=== PATIENT | female | born 1945 | race Caucasian/White ===

== ENCOUNTER 2016-07-21 20:14 | Inpatient (IN) | payer MEDICARE, BC ==
[2016-07-21] MEDS ORDERED: Lactated Ringers 1,000 ML IV ONE (21:11)
[2016-07-21] MEDS ORDERED: HYDROmorphone 1 MG/ML Syringe IVPUSH ONE (21:11)
[2016-07-21] MEDS ORDERED: Prochlorperazine 10 MG/2 ML SDV IVPUSH ONE (21:13)
[2016-07-21] MEDS: Sodium Chloride 0.9% 10 ML Syringe FLUSH PRN ×2 (21:26→23:13)
--- NOTE | 2016-07-21 21:31 | EDM.PDOC ---
ED HPI GENERAL MEDICAL PROBLEM - General Chief Complaint: Gastrointestinal Problem Stated Complaint: [facility] Time Seen by Provider: 07/21/16 21:02 Source of Information: Reports: Patient, Family, Old records, RN notes reviewed History Limitations: Reports: No limitations - History of Present Illness INITIAL COMMENTS - FREE TEXT/NARRATIVE: 70-year-old female presents emergency department a complaint of weakness, nausea vomiting and lightheadedness, she has a known history of pancreatic cancer status post surgery with chemotherapy and radiation now with recurrence of new primary that is malignant. She recently underwent a transhepatic portal venogram with vein stenting. This was done at the [facility] day of discharge [facility] was today while in route home approximately care home through she developed severe nausea and vomiting unable to keep any liquids down has increased in pain Treatments DOLL REPAIRER: Reports: Other (see below) Other Treatments DOLL REPAIRER: glucose Lower Abdomen Pain Score (Numeric/FACES): 4 Lower back Pain Score (Numeric/FACES): 5 - Related Data Allergies Allergy/AdvReac Type Severity Reaction Status Date / Time hydroxychloroquine Allergy Intermediate Hives Verified 07/21/16 20:42 diclofenac [Diclofenac] Allergy Rash Verified 07/21/16 20:42 irinotecan [From Camptosar] Allergy Difficulty Verified 07/21/16 20:42 Swallowing propoxyphene Allergy Cannot Verified 07/21/16 20:42 Remember codeine AdvReac Nausea Verified 07/21/16 20:42 Sulfa (Sulfonamide AdvReac Nausea Verified 07/21/16 20:42 Antibiotics) Home Meds: Home Meds Amitriptyline [Elavil] 25 mg PO BEDTIME 12/06/12 [History] Multivitamin/Iron/Folic Acid [Centrum Complete Multivit] 1 each PO DAILY [History] Simvastatin [Zocor] 20 mg PO BEDTIME 12/06/12 [History] predniSONE 5 mg PO DAILY 12/06/12 [History] Amylase/Lipase/Protease [Lyndsey LOVING 12,000 Units] 120,000 units PO TID 05/09/15 [ History] Hydrocodone/Acetaminophen [Hydrocodon-Acetaminophen 5-325] 1 tab PO Q6H PRN 03/12 [History] Acetaminophen 650 mg PO Q6H PRN 07/14/15 [History] Apixaban [Eliquis] 2.5 mg PO BID 07/14/15 [History] Calcium Citrate/Vitamin D3 [Calcium Citrate-Vit D3 Tablet] 1 tab PO BID [History] Metoprolol Tartrate [Lopressor] 12.5 mg PO BID 07/14/15 [History] Potassium Chloride [Klor-Con M20] 20 meq PO DAILY 07/14/15 [History] Prochlorperazine Maleate [Compazine] 10 mg PO Q6H PRN 07/14/15 [History] Furosemide [Furosemide] 40 mg PO DAILY 06/21/16 [History] Leflunomide [Leflunomide] 10 mg PO .Q48HR 06/21/16 [History] Nystatin [Nystatin] 1 cm TOP TID PRN 06/21/16 [History] Omeprazole [Omeprazole] 40 mg PO DAILY 06/21/16 [History] Ondansetron [Zofran] 8 mg PO Q12HR 06/21/16 [History] Amylase/Lipase/Protease [Lyndsey LOVING 24,000 Unit] 1 cap PO 07/21/16 [History] Past Medical History HEENT History: Reports: Impaired vision Other HEENT History: wears glasses Cardiovascular History: Reports: Arrhythmia, High cholesterol, Hypertension Gastrointestinal History: Reports: Chronic diarrhea, GERD, Hemorrhoids, Other ( see below) Other Gastrointestinal History: whipple 02/14/2015 [employer] History: Reports: Musculoskeletal History: Reports: Amputation, Arthritis, Back pain, chronic, Fracture, Fibromyalgia, Neck pain, chronic, Osteoarthritis, RA, Other (see below ) Other Musculoskeletal History: bunions removed, Hematologic History: Reports: Blood transfusion(s) Immunologic History: Reports: Immunosuppression Oncologic (Cancer) History: Reports: Pancreatic, Other (see below) Other Oncologic History: had 6 weeks of chemo June 2014, completed radiation December 31/2105;. Currently receiving Chemo although while at [place] has not received it. Dermatologic History: Reports: Other (see below) Other Dermatologic History: skin graft to abdomen - Infectious Disease History Infectious Disease History: Reports: Chicken pox, Measles Other Infectious Disease History: states currently being treated for C-diff - Past Surgical History Head Surgeries/Procedures: Reports: Shunt HEENT Surgical History: Reports: None, Other (see below) Other HEENT Surgeries/Procedures: right ear surgery Cardiovascular Surgical History: Reports: None GI Surgical History: Reports: Cholecystectomy, Colonoscopy, EGD, Other (see below) Other GI Surgeries/Procedures: Whipple 02/14/2015 in [place]; feeding tube Left abdomen,. 07/21/16 Transhepatic portal Venogram with poptal vein shunting. Female Surgical History: Reports: Hysterectomy Neurological Surgical History: Reports: Sacral Spine, Spinal fusion Musculoskeletal Surgical History: Reports: Other (see below) Other Musculoskeletal Surgeries/Procedures:: sacral spinous suspension, hammertoe, L foot talonvacular fusion, L proximal humerus fx, Low back disc surgery, Right foot 2nd toe amputation, Arthrodesis right foot, 1st metatarsophlangeal joint Oncologic Surgical History: Reports: Other (see below) Other Oncologic Surgeries/Procedures: Whipple 02/14/2015 Dermatological Surgical History: Reports: Skin biopsy Social & Family History - Family History Cardiac: Reports: Heart valve replacement, [place] Neurological: Reports: CVA Endocrine/Metabolic: Reports: Diabetes, type II Oncologic: Reports: Breast, Cervix, Other (see below) Other Oncologic Family History: throat cancer; skin cancer - Tobacco Use Smoking Status *Q: Never Smoker Second Hand Smoke Exposure: No - Caffeine Use Caffeine Use: Reports: Coffee - Alcohol Use Days Per Week of Alcohol Use: 0 - Recreational Drug Use Recreational Drug Use: No ED ROS GENERAL - Review of Systems Review Of Systems: See Below Constitutional: Reports: weakness HEENT: Reports: No symptoms Respiratory: Reports: No Symptoms Cardiovascular: Reports: No symptoms GI/Abdominal: Reports: Distension, Nausea, Vomiting Musculoskeletal: Reports: back pain Skin: Reports: no symptoms Neurological: Reports: No Symptoms ED EXAM, GENERAL - Physical Exam Exam: See Below Free Text/Narrative:: General: Elderly, emaciated female, mild distress secondary to pain, alert and oriented x3 HEENT: head is atraumatic normocephalic, eyes pupils equal round reactive to light, sclera clear no conjunctivitis appreciated. Ears tympanic membranes clear and comer landmarks and light reflex are present bilaterally canals are clear. Nose no septal deviation, nares are clear, no blood present. Mouth mucosa is moist and pink no erythema or exudate noted in soft palate, tongue is midline uvula is midline, dentures in place. Neck: Supple no thyromegaly no tracheal deviation. Nodes: Cervical nodes subclavicular nodes nontender no palpable lymphadenopathy noted. Lungs: clear to auscultation bilaterally with symmetrical respirations, no adventitious noise appreciated. CV: Irregularly irregular rate and rhythm S1 and S2 appreciated no murmurs rubs or gallops noted. Abdomen: Soft, nontender, no palpable masses or organomegaly appreciated, marked distention no guarding bowel sounds are present, since the abdominal skin graft in place Neuro: Cranial nerves II through XII grossly intact Skin: Warm and dry, intact Extremities: +2 pitting edema bilaterally Course - Vital Signs Last Recorded V/S: Last Vital Signs Temp 99.4 F 07/21/16 20:32 Pulse 120 H 07/22/16 00:15 Resp 16 07/22/16 00:15 BP 69/48 L 07/22/16 00:15 Pulse Ox 100 07/22/16 00:15 - Orders/Labs/Meds Orders: Active Orders 24 hr Category Date Time Status EKG Documentation Completion [RC] ASDIRECTED Care 07/21/16 22:33 Active Insert Feldman Catheter [Insert Urinary Catheter] [OM.PC] Care 07/21/16 23:46 Ordered Q24H Peripheral IV Care [RC] . DIRECTED Care 07/21/16 21:13 Active RT Aerosol Therapy [RC] ASDIRECTED Care 07/21/16 22:31 Active Urinary Catheter Assessment [RC] ASDIRECTED Care 07/21/16 23:46 Active Abdomen Pelvis wo Cont [CT] Stat Exams 07/21/16 22:33 Taken Cefepime [Maxipime] 1 gm Med 07/22/16 06:00 Ordered Sodium Chloride 0.9% [Normal Saline] 50 ml IV Q8HR Hydrocortisone Sod Succinate [Solu-CORTEF] Med 07/22/16 01:04 Once 100 mg IVPUSH ONETIME ONE Lactated Ringers [Ringers, Lactated] 1,000 ml Med 07/22/16 01:15 Ordered IV ASDIRECTED Potassium Chloride [KCL 20 MEQ in Water 100 ML] 20 meq Med 07/22/16 00:07 Active Premix Bag 2 bag IV ONETIME Sodium Chloride 0.9% [Saline Flush] Med 07/21/16 21:13 Active 10 ml FLUSH ASDIRECTED PRN Peripheral IV Insertion Adult [OM.PC] Urgent Oth 07/21/16 21:13 Ordered EKG 12 Lead [EK] Stat Ther 07/21/16 22:32 Ordered Medication Orders Hydrocortisone Sodium Succinate (Solu-Cortef) 100 mg IVPUSH ONETIME ONE Stop: 07/22/16 01:05 Potassium Chloride 20 meq/ (Premix) 100 mls @ 50 mls/hr IV ONETIME ONE Stop: 07/22/16 02:06 Last Admin: 07/22/16 00:31 Dose: 50 mls/hr Lactated Ringer's (Ringers, Lactated) 1,000 mls @ 999 mls/hr IV ASDIRECTED MARIA DEL ROSARIO Stop: 07/22/16 02:16 Cefepime HCl 1 gm/ Sodium (Chloride) 50 mls @ 100 mls/hr IV Q8HR MARIA DEL ROSARIO Sodium Chloride (Saline Flush) 10 ml FLUSH ASDIRECTED PRN PRN Reason: Keep Vein Open Last Admin: 07/21/16 23:13 Dose: 10 ml Admin: 07/21/16 21:26 Dose: 10 ml Labs: Laboratory Tests 07/21/16 07/21/16 07/21/16 Range/Units 21:39 21:39 23:37 WBC 23.0 H (4.5-11.0) K/uL RBC 3.37 (3.30-5.50) M/uL Hgb 12.6 D (12.0-15.0) g/dL Hct 36.1 (36.0-48.0) % MCV 107 H (80-98) fL MCH 37 H (27-31) pg MCHC 35 (32-36) % Plt Count 112 L (150-400) K/uL Neut % (Auto) 97 H (36-66) % Lymph % (Auto) 1 L (24-44) % [place] % (Auto) 2 (2-6) % Eos % (Auto) 0 L (2-4) % Baso % (Auto) 0 (0-1) % Sodium 141 (140-148) mmol/L Potassium 8.7 H* (3.6-5.2) mmol/L Chloride 102 (100-108) mmol/L Carbon Dioxide 23 (21-32) mmol/L Anion Gap 24.7 H (5.0-14.0) mmol/L BUN 11 (7-18) mg/dL Creatinine 1.3 H D (0.6-1.0) mg/dL Est Cr Clr Drug Dosing 34.39 mL/min Estimated GFR (MDRD) 40 L (>60) Glucose 105 (74-106) mg/dL Lactic Acid (0.4-2.0) mmol/L Calcium 0.7 L* (8.5-10.1) mg/dL Total Bilirubin 0.6 (0.2-1.0) mg/dL AST 51 H (15-37) U/L ALT 26 (12-78) U/L Alkaline Phosphatase 280 H (46-116) U/L Total Protein 5.0 L (6.4-8.2) g/dL Albumin 1.4 L (3.4-5.0) g/dL Globulin 3.6 H (2.3-3.5) g/dL Albumin/Globulin Ratio 0.4 L (1.2-2.2) Urine Color Yellow Urine Appearance Clear Urine pH 5.0 (4.5-8.0) Ur Specific [place] 1.005 L (1.008-1.030) Urine Protein Trace (NEGATIVE) mg/dL Urine Glucose (UA) Normal (NEGATIVE) mg/dL Urine Ketones Negative (NEGATIVE) mg/dL Urine Occult Blood Negative (NEGATIVE) Urine Nitrite Negative (NEGATIVE) Urine Bilirubin Small (NEGATIVE) Urine Urobilinogen Normal (NORMAL) mg/dL Ur Leukocyte Esterase Negative (NEGATIVE) Urine RBC 0-5 (0-5) Urine WBC 0-5 (0-5) Ur Epithelial Cells Rare Amorphous Sediment Not seen Urine Bacteria Few Urine Mucus Not seen 07/21/16 07/21/16 07/21/16 Range/Units 23:40 23:40 23:40 WBC (4.5-11.0) K/uL RBC (3.30-5.50) M/uL Hgb (12.0-15.0) g/dL Hct (36.0-48.0) % MCV (80-98) fL MCH (27-31) pg MCHC (32-36) % Plt Count (150-400) K/uL Neut % (Auto) (36-66) % Lymph % (Auto) (24-44) % [place] % (Auto) (2-6) % Eos % (Auto) (2-4) % Baso % (Auto) (0-1) % Sodium (140-148) mmol/L Potassium 2.9 L* (3.6-5.2) mmol/L Chloride (100-108) mmol/L Carbon Dioxide (21-32) mmol/L Anion Gap (5.0-14.0) mmol/L BUN (7-18) mg/dL Creatinine (0.6-1.0) mg/dL Est Cr Clr Drug Dosing mL/min Estimated GFR (MDRD) (>60) Glucose (74-106) mg/dL Lactic Acid 7.7 H (0.4-2.0) mmol/L Calcium 7.0 L D (8.5-10.1) mg/dL Total Bilirubin (0.2-1.0) mg/dL AST (15-37) U/L ALT (12-78) U/L Alkaline Phosphatase (46-116) U/L Total Protein (6.4-8.2) g/dL Albumin (3.4-5.0) g/dL Globulin (2.3-3.5) g/dL Albumin/Globulin Ratio (1.2-2.2) Urine Color Urine Appearance Urine pH (4.5-8.0) Ur Specific [place] (1.008-1.030) Urine Protein (NEGATIVE) mg/dL Urine Glucose (UA) (NEGATIVE) mg/dL Urine Ketones (NEGATIVE) mg/dL Urine Occult Blood (NEGATIVE) Urine Nitrite (NEGATIVE) Urine Bilirubin (NEGATIVE) Urine Urobilinogen (NORMAL) mg/dL Ur Leukocyte Esterase (NEGATIVE) Urine RBC (0-5) Urine WBC (0-5) Ur Epithelial Cells Amorphous Sediment Urine Bacteria Urine Mucus Meds: Medications Generic Name Dose Route Start Last Admin Trade Name Freq PRN Reason Stop Dose Admin Hydrocortisone Sodium Succinate 100 mg 07/22/16 01:04 Solu-Cortef IVPUSH 07/22/16 01:05 ONETIME ONE Potassium Chloride 20 meq/ 100 mls @ 50 mls/hr 07/22/16 00:07 07/22/16 00:31 Premix IV 07/22/16 02:06 50 mls/hr ONETIME ONE Administration Lactated Ringer's 1,000 mls @ 999 mls/hr 07/22/16 01:15 Ringers, Lactated IV 07/22/16 02:16 ASDIRECTED MARIA DEL ROSARIO Cefepime HCl 1 gm/ Sodium 50 mls @ 100 mls/hr 07/22/16 06:00 Chloride IV Q8HR MARIA DEL ROSARIO Sodium Chloride 10 ml 07/21/16 21:13 07/21/16 23:13 Saline Flush FLUSH 10 ml ASDIRECTED PRN Administration Keep Vein Open Discontinued Medications Generic Name Dose Route Start Last Admin Trade Name Freq PRN Reason Stop Dose Admin Albuterol 2.5 mg 07/21/16 22:29 07/21/16 22:58 Proventil Neb Soln NEB 07/21/16 22:30 2.5 mg ONETIME ONE Administration Calcium Gluconate 1 gm 07/21/16 22:29 07/21/16 23:06 Calcium Gluconate IVPUSH 07/21/16 22:30 1 gm ONETIME ONE Administration Dextrose/Water 50 ml 07/21/16 22:29 07/21/16 23:00 Dextrose 50% In Water IVPUSH 07/21/16 22:30 50 ml ONETIME ONE Administration Hydromorphone HCl 1 mg 07/21/16 21:11 07/21/16 21:26 Dilaudid IVPUSH 07/21/16 21:12 1 mg ONETIME ONE Administration Lactated Ringer's 1,000 mls @ 500 mls/hr 07/21/16 21:11 07/21/16 22:21 Ringers, Lactated IV 07/21/16 23:10 250 mls/hr BOLUS ONE Infusion Potassium Chloride 40 meq/ 100 mls @ 25 mls/hr 07/21/16 23:44 Premix IV 07/22/16 03:43 ONETIME ONE Insulin Human Regular 5 unit 07/21/16 22:29 07/21/16 23:03 Novolin R IVPUSH 07/21/16 22:30 5 units ONETIME ONE Administration Protocol Potassium Chloride 40 meq 07/21/16 23:44 07/22/16 00:33 Klor-Con M20 PO 07/21/16 23:45 40 meq ONETIME ONE Administration Prochlorperazine Edisylate 10 mg 07/21/16 21:13 07/21/16 21:22 Compazine IVPUSH 07/21/16 21:14 10 mg ONETIME ONE Administration Sodium Polystyrene Sulfonate 15 gm 07/21/16 22:29 07/21/16 23:11 Kayexalate PO 07/21/16 22:30 15 gm ONETIME ONE Administration Sodium Polystyrene Sulfonate 45 gm 07/21/16 22:29 07/21/16 23:26 Kayexalate RECTAL 07/21/16 22:30 Not Given NOW ONE - Re-Assessments/Exams Free Text/Narrative Re-Assessment/Exam: 07/22/16 00:13 Lab has now reported that the elevated potassium wasn't in correct lab value her potassium is actually 2.8, this information was brought forward to the emergency department approximately 2 hours after we had provided treatment for hyperkalemia, we are now providing treatment for hypokalemia Departure - Departure Time of Disposition: 01:08 Disposition: Admitted As Inpatient 65 Condition: good Clinical Impression: Sepsis Qualifiers: Sepsis type: sepsis due to unspecified organism Qualified Code(s): A41.9 - Sepsis, unspecified organism Forms: ED Department Discharge - My Orders Last 24 Hours: My Active Orders 07/21/16 21:13 Peripheral IV Care [RC] . DIRECTED Sodium Chloride 0.9% [Saline Flush] 10 ml FLUSH ASDIRECTED PRN Peripheral IV Insertion Adult [OM.PC] Urgent 07/21/16 22:31 RT Aerosol Therapy [RC] ASDIRECTED 07/21/16 22:32 EKG 12 Lead [EK] Stat 07/21/16 22:33 EKG Documentation Completion [RC] ASDIRECTED Abdomen Pelvis wo Cont [CT] Stat 07/21/16 23:46 Insert Feldman Catheter [Insert Urinary Catheter] [OM.PC] Q24H Urinary Catheter Assessment [RC] ASDIRECTED 07/22/16 00:07 Potassium Chloride [KCL 20 MEQ in Water 100 ML] 20 meq Premix Bag 2 bag IV ONETIME - Assessment/Plan Last 24 Hours: My Active Orders 07/21/16 21:13 Peripheral IV Care [RC] . DIRECTED Sodium Chloride 0.9% [Saline Flush] 10 ml FLUSH ASDIRECTED PRN Peripheral IV Insertion Adult [OM.PC] Urgent 07/21/16 22:31 RT Aerosol Therapy [RC] ASDIRECTED 07/21/16 22:32 EKG 12 Lead [EK] Stat 07/21/16 22:33 EKG Documentation Completion [RC] ASDIRECTED Abdomen Pelvis wo Cont [CT] Stat 07/21/16 23:46 Insert Feldman Catheter [Insert Urinary Catheter] [OM.PC] Q24H Urinary Catheter Assessment [RC] ASDIRECTED 07/22/16 00:07 Potassium Chloride [KCL 20 MEQ in Water 100 ML] 20 meq Premix Bag 2 bag IV ONETIME Plan: Assessment Acuity = acute Site and laterality = nausea and vomiting, weakness with sepsis complicated patient with known history of malignant pancreatic cancer Etiology = suspicious for source from recent stenting procedure Manifestations = weakness, nausea and vomiting Location of injury = home Lab values = WBC elevated at 23,000 consistent leukocytosis potassium low at 2.9 consistent hypokalemia creatinine elevated 1.3 consistent with chronic renal further stage GIIIB lactic acid markedly elevated at 7.7 consistent lactic acidosis albumin low at 1.4 consistent hypoalbuminemia urinalysis unremarkable CT scan shows no interval change from 07/06 Plan Discuss case with hospitalist 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
[2016-07-21] MEDS ORDERED: 50% Dextrose in Water 50 ML Syringe IVPUSH ONE (22:29)
[2016-07-21] MEDS ORDERED: Sodium Polystyrene Sulfonate 15 GM/60 ML Susp 60 ML Bot RECTAL ONE (22:29)
[2016-07-21] MEDS ORDERED: Sodium Polystyrene Sulfonate 15 GM/60 ML Susp 60 ML Bot PO ONE (22:29)
[2016-07-21] MEDS ORDERED: Calcium Gluconate 10% 1 GM/10 ML SDV IVPUSH ONE (22:29)
[2016-07-21] MEDS ORDERED: Insulin Regular, Human 100 Units/ML 10 ML Vial IVPUSH ONE (22:29)
[2016-07-21] MEDS: Albuterol 0.083% 2.5 MG/3 ML Neb Soln NEB ONE (22:58)
[2016-07-21] MEDS ORDERED: Potassium Chloride 20 MEQ Tab.ER PO ONE (23:44)
[2016-07-21] MEDS ORDERED: Potassium Chloride 40 MEQ in Premix Bag 1 BAG IV ONE (23:44)
[2016-07-22] MEDS ORDERED: Potassium Chloride 20 MEQ in Premix Bag 2 BAG IV ONE ×2 (00:07→03:00)
[2016-07-22] MEDS ORDERED: Cefepime 1 GM in Sodium Chloride 0.9% 50 ML IV SCH (01:00)
[2016-07-22] MEDS ORDERED: Hydrocortisone Sodium Succinate 100 MG/2 ML SDV IVPUSH ONE (01:04)
[2016-07-22] MEDS ORDERED: Lactated Ringers 1,000 ML IV SCH (01:15)
--- NOTE | 2016-07-22 01:23 | PCM.HP ---
H&P History of Present Illness - General Date of Service: 07/22/16 Admit Problem/Dx: Admission Diagnosis/Problem Admission Diagnosis/Problem Hypotension Source of Information: Patient, Provider History Limitations: Reports: No limitations - History of Present Illness Initial Comments - Free Text/Narative: Nat presented to the emergency room with nausea and vomiting. The symptoms started today on her way home from the [facility]. She was at the [facility] to have a stent placed in her portal vein to help relieve obstruction. She reports feeling fairly well at the time of her departure. She does have some abdominal pain but this is chronic. This is described as an achy lower abdominal pain that does not radiate. It is mild to moderate in nature and often improves some with hydrocodone. The pain seems to come and go without obvious triggers. Usually this is not associated with nausea or vomiting. No change with bowel movements. Bowels have been moving normally. No fevers but she has had some chills. Appetite has been normal until she started vomiting today. She does have an abrasion on her left elbow after a fall a few days ago. No pain in this area. Lower shortly edema is stable to slightly improved. Workup in the emergency room has revealed evidence for sepsis with lactic acidosis, hypotension and tachycardia. No obvious source based on workup so far but I suspect there is a relationship with the procedure and possible bacteremia. She also has hypokalemia. She will be admitted to the intensive care unit after a fluid bolus and antibiotic initiation. Lower Abdomen Pain Score (Numeric/FACES): 4 Lower back Pain Score (Numeric/FACES): 5 - Related Data Allergies/Adverse Reactions: Allergies Allergy/AdvReac Type Severity Reaction Status Date / Time hydroxychloroquine Allergy Intermediate Hives Verified 07/21/16 20:42 diclofenac [Diclofenac] Allergy Rash Verified 07/21/16 20:42 irinotecan [From Camptosar] Allergy Difficulty Verified 07/21/16 20:42 Swallowing propoxyphene Allergy Cannot Verified 07/21/16 20:42 Remember codeine AdvReac Nausea Verified 07/21/16 20:42 Sulfa (Sulfonamide AdvReac Nausea Verified 07/21/16 20:42 Antibiotics) Home Medications: Home Meds Amitriptyline [Elavil] 25 mg PO BEDTIME 12/06/12 [History] Multivitamin/Iron/Folic Acid [Centrum Complete Multivit] 1 each PO DAILY [History] Simvastatin [Zocor] 20 mg PO BEDTIME 12/06/12 [History] predniSONE 5 mg PO DAILY 12/06/12 [History] Amylase/Lipase/Protease [Lyndsey LOVING 12,000 Units] 120,000 units PO TID 05/09/15 [ History] Hydrocodone/Acetaminophen [Hydrocodon-Acetaminophen 5-325] 1 tab PO Q6H PRN 03/12 [History] Acetaminophen 650 mg PO Q6H PRN 07/14/15 [History] Apixaban [Eliquis] 2.5 mg PO BID 07/14/15 [History] Calcium Citrate/Vitamin D3 [Calcium Citrate-Vit D3 Tablet] 1 tab PO BID [History] Metoprolol Tartrate [Lopressor] 12.5 mg PO BID 07/14/15 [History] Potassium Chloride [Klor-Con M20] 20 meq PO DAILY 07/14/15 [History] Prochlorperazine Maleate [Compazine] 10 mg PO Q6H PRN 07/14/15 [History] Furosemide [Furosemide] 40 mg PO DAILY 06/21/16 [History] Leflunomide [Leflunomide] 10 mg PO .Q48HR 06/21/16 [History] Nystatin [Nystatin] 1 cm TOP TID PRN 06/21/16 [History] Omeprazole [Omeprazole] 40 mg PO DAILY 06/21/16 [History] Ondansetron [Zofran] 8 mg PO Q12HR 06/21/16 [History] Amylase/Lipase/Protease [Lyndsey LOVING 24,000 Unit] 1 cap PO 07/21/16 [History] Past Medical History HEENT History: Reports: Impaired vision Other HEENT History: wears glasses Cardiovascular History: Reports: Arrhythmia, High cholesterol, Hypertension Gastrointestinal History: Reports: Chronic diarrhea, GERD, Hemorrhoids, Other ( see below) Other Gastrointestinal History: whipple 02/14/2015 [employer] History: Reports: Musculoskeletal History: Reports: Amputation, Arthritis, Back pain, chronic, Fracture, Fibromyalgia, Neck pain, chronic, Osteoarthritis, RA, Other (see below ) Other Musculoskeletal History: bunions removed, Hematologic History: Reports: Blood transfusion(s) Immunologic History: Reports: Immunosuppression Oncologic (Cancer) History: Reports: Pancreatic, Other (see below) Other Oncologic History: had 6 weeks of chemo June 2014, completed radiation December 31/2105;. Currently receiving Chemo although while at [place] has not received it. Dermatologic History: Reports: Other (see below) Other Dermatologic History: skin graft to abdomen - Infectious Disease History Infectious Disease History: Reports: Chicken pox, Measles Other Infectious Disease History: states currently being treated for C-diff - Past Surgical History Head Surgeries/Procedures: Reports: Shunt HEENT Surgical History: Reports: None, Other (see below) Other HEENT Surgeries/Procedures: right ear surgery Cardiovascular Surgical History: Reports: None GI Surgical History: Reports: Cholecystectomy, Colonoscopy, EGD, Other (see below) Other GI Surgeries/Procedures: Whipple 02/14/2015 in [place]; feeding tube Left abdomen,. 07/21/16 Transhepatic portal Venogram with poptal vein shunting. Female Surgical History: Reports: Hysterectomy Neurological Surgical History: Reports: Sacral Spine, Spinal fusion Musculoskeletal Surgical History: Reports: Other (see below) Other Musculoskeletal Surgeries/Procedures:: sacral spinous suspension, hammertoe, L foot talonvacular fusion, L proximal humerus fx, Low back disc surgery, Right foot 2nd toe amputation, Arthrodesis right foot, 1st metatarsophlangeal joint Oncologic Surgical History: Reports: Other (see below) Other Oncologic Surgeries/Procedures: Whipple 02/14/2015 Dermatological Surgical History: Reports: Skin biopsy Social & Family History - Family History Cardiac: Reports: Heart valve replacement, CT Neurological: Reports: CVA Endocrine/Metabolic: Reports: Diabetes, type II Oncologic: Reports: Breast, Cervix, Other (see below) Other Oncologic Family History: throat cancer; skin cancer - Tobacco Use Smoking Status *Q: Never Smoker Second Hand Smoke Exposure: No - Caffeine Use Caffeine Use: Reports: Coffee - Alcohol Use Days Per Week of Alcohol Use: 0 - Recreational Drug Use Recreational Drug Use: No H&P Review of Systems - Review of Systems: Review Of Systems: See Below Free Text/Narrative: A complete 12 point review of systems was obtained. Pertinent positives and negatives are noted in the history of present illness. All other systems were reviewed and were negative except as noted. Exam - Exam Exam: See Below - Vital Signs Vital Signs: Last Vital Signs Temp 37.4 C 07/21/16 20:32 Pulse 120 H 07/22/16 00:15 Resp 16 07/22/16 00:15 BP 69/48 L 07/22/16 00:15 Pulse Ox 100 07/22/16 00:15 Weight: 54.885 kg - Exam Quality Assessment: urinary catheter. No: supplemental oxygen General: alert, oriented, cooperative. No: mild distress HEENT: Conjunctiva clear. No: Mucosa moist & pink (dry), Scleral icterus Neck: supple, trachea midline. No: lymphadenopathy, thyromegaly Lungs: Clear to auscultation, Normal respiratory effort Cardiovascular: regular rhythm, tachycardia. No: systolic murmur Abdomen: normal bowel sounds, soft, tenderness (Mild lower abdominal), hernia ( Right lower cord current with overlying skin graft). No: distention Back Exam: full range of motion. No: muscle spasm Extremities: edema (Pitting edema from the feet all the way up to the lower abdomen). No: cyanosis Skin: warm, dry, wound (Abrasion left elbow) Neuro Extensive - Mental Status: alert, oriented x3, nl response to commands Neuro Extensive - Motor, Sensory, Reflexes: CN II-XII intact. No: dysarthria, abnormal motor, tremor Psychiatric: alert, normal affect - Patient Data Lab Results last 24 hrs: Laboratory Results - last 24 hr 07/21/16 07/21/16 07/21/16 Range/Units 21:39 21:39 23:37 WBC 23.0 H (4.5-11.0) K/uL RBC 3.37 (3.30-5.50) M/uL Hgb 12.6 D (12.0-15.0) g/dL Hct 36.1 (36.0-48.0) % MCV 107 H (80-98) fL MCH 37 H (27-31) pg MCHC 35 (32-36) % Plt Count 112 L (150-400) K/uL Neut % (Auto) 97 H (36-66) % Lymph % (Auto) 1 L (24-44) % [place] % (Auto) 2 (2-6) % Eos % (Auto) 0 L (2-4) % Baso % (Auto) 0 (0-1) % Sodium 141 (140-148) mmol/L Potassium 8.7 H* (3.6-5.2) mmol/L Chloride 102 (100-108) mmol/L Carbon Dioxide 23 (21-32) mmol/L Anion Gap 24.7 H (5.0-14.0) mmol/L BUN 11 (7-18) mg/dL Creatinine 1.3 H D (0.6-1.0) mg/dL Est Cr Clr Drug Dosing 34.39 mL/min Estimated GFR (MDRD) 40 L (>60) Glucose 105 (74-106) mg/dL Lactic Acid (0.4-2.0) mmol/L Calcium 0.7 L* (8.5-10.1) mg/dL Total Bilirubin 0.6 (0.2-1.0) mg/dL AST 51 H (15-37) U/L ALT 26 (12-78) U/L Alkaline Phosphatase 280 H (46-116) U/L Total Protein 5.0 L (6.4-8.2) g/dL Albumin 1.4 L (3.4-5.0) g/dL Globulin 3.6 H (2.3-3.5) g/dL Albumin/Globulin Ratio 0.4 L (1.2-2.2) Urine Color Yellow Urine Appearance Clear Urine pH 5.0 (4.5-8.0) Ur Specific [place] 1.005 L (1.008-1.030) Urine Protein Trace (NEGATIVE) mg/dL Urine Glucose (UA) Normal (NEGATIVE) mg/dL Urine Ketones Negative (NEGATIVE) mg/dL Urine Occult Blood Negative (NEGATIVE) Urine Nitrite Negative (NEGATIVE) Urine Bilirubin Small (NEGATIVE) Urine Urobilinogen Normal (NORMAL) mg/dL Ur Leukocyte Esterase Negative (NEGATIVE) Urine RBC 0-5 (0-5) Urine WBC 0-5 (0-5) Ur Epithelial Cells Rare Amorphous Sediment Not seen Urine Bacteria Few Urine Mucus Not seen 07/21/16 07/21/16 07/21/16 Range/Units 23:40 23:40 23:40 WBC (4.5-11.0) K/uL RBC (3.30-5.50) M/uL Hgb (12.0-15.0) g/dL Hct (36.0-48.0) % MCV (80-98) fL MCH (27-31) pg MCHC (32-36) % Plt Count (150-400) K/uL Neut % (Auto) (36-66) % Lymph % (Auto) (24-44) % [place] % (Auto) (2-6) % Eos % (Auto) (2-4) % Baso % (Auto) (0-1) % Sodium (140-148) mmol/L Potassium 2.9 L* (3.6-5.2) mmol/L Chloride (100-108) mmol/L Carbon Dioxide (21-32) mmol/L Anion Gap (5.0-14.0) mmol/L BUN (7-18) mg/dL Creatinine (0.6-1.0) mg/dL Est Cr Clr Drug Dosing mL/min Estimated GFR (MDRD) (>60) Glucose (74-106) mg/dL Lactic Acid 7.7 H (0.4-2.0) mmol/L Calcium 7.0 L D (8.5-10.1) mg/dL Total Bilirubin (0.2-1.0) mg/dL AST (15-37) U/L ALT (12-78) U/L Alkaline Phosphatase (46-116) U/L Total Protein (6.4-8.2) g/dL Albumin (3.4-5.0) g/dL Globulin (2.3-3.5) g/dL Albumin/Globulin Ratio (1.2-2.2) Urine Color Urine Appearance Urine pH (4.5-8.0) Ur Specific [place] (1.008-1.030) Urine Protein (NEGATIVE) mg/dL Urine Glucose (UA) (NEGATIVE) mg/dL Urine Ketones (NEGATIVE) mg/dL Urine Occult Blood (NEGATIVE) Urine Nitrite (NEGATIVE) Urine Bilirubin (NEGATIVE) Urine Urobilinogen (NORMAL) mg/dL Ur Leukocyte Esterase (NEGATIVE) Urine RBC (0-5) Urine WBC (0-5) Ur Epithelial Cells Amorphous Sediment Urine Bacteria Urine Mucus Result Diagrams: 07/21/16 21:39 07/21/16 23:40 Imaging Impressions last 24 hrs: CT of the abdomen and pelvis - images personally reviewed - no evidence for bowel obstruction. She is moderate ascites. Biliary stent is noted. Small bilateral effusions are noted. No evidence for abscess, hematoma or acute findings. *Q Meaningful Use (ADM) - VTE *Q VTE Criteria *Q: - Stroke *Q Stroke Criteria *Q: - AMI *Q AMI Criteria *Q: - Problem List (1) Sepsis SNOMED Code(s): 29303356 ICD Code: A41.9 - SEPSIS, UNSPECIFIED ORGANISM Status: Acute Current Visit: Yes Qualifiers: Sepsis type: sepsis due to unspecified organism Qualified Code(s): A41.9 - Sepsis, unspecified organism (2) Hypokalemia SNOMED Code(s): 17317109 ICD Code: E87.6 - HYPOKALEMIA Status: Acute Current Visit: Yes (3) Pancreatic cancer SNOMED Code(s): 897958662 ICD Code: C25.9 - MALIGNANT NEOPLASM OF PANCREAS, UNSPECIFIED Status: Chronic Current Visit: Yes Problem Details: Recurrent, suspect second primary pancreatic cancer Qualifiers: Pancreatic malignancy location: tail of pancreas Qualified Code(s): C25.2 - Malignant neoplasm of tail of pancreas Problem List Initiated/Reviewed/Updated: Yes Orders Last 24hrs: Active Orders 24 hr Category Date Time Status Patient Status Manage Transfer [TRANSFER] Routine ADT 07/22/16 01:07 Ordered EKG Documentation Completion [RC] ASDIRECTED Care 07/21/16 22:33 Active Insert Feldman Catheter [Insert Urinary Catheter] [OM.PC] Care 07/21/16 23:46 Ordered Q24H Peripheral IV Care [RC] . DIRECTED Care 07/21/16 21:13 Active RT Aerosol Therapy [RC] ASDIRECTED Care 07/21/16 22:31 Active Urinary Catheter Assessment [RC] ASDIRECTED Care 07/21/16 23:46 Active Abdomen Pelvis wo Cont [CT] Stat Exams 07/21/16 22:33 Taken CULTURE BLOOD [BC] Urgent Lab 07/22/16 01:07 Ordered CULTURE BLOOD [BC] Urgent Lab 07/22/16 01:07 Ordered Cefepime [Maxipime] 1 gm Med 07/22/16 06:00 Ordered Sodium Chloride 0.9% [Normal Saline] 50 ml IV Q8HR Lactated Ringers [Ringers, Lactated] 1,000 ml Med 07/22/16 01:15 Active IV ASDIRECTED Potassium Chloride [KCL 20 MEQ in Water 100 ML] 20 meq Med 07/22/16 00:07 Active Premix Bag 2 bag IV ONETIME Sodium Chloride 0.9% [Saline Flush] Med 07/21/16 21:13 Active 10 ml FLUSH ASDIRECTED PRN Blood Culture x2 Reflex Set [OM.PC] Urgent Oth 07/22/16 01:07 Ordered Peripheral IV Insertion Adult [OM.PC] Urgent Oth 07/21/16 21:13 Ordered Resuscitation Status Routine Resus Stat 07/22/16 01:10 Ordered EKG 12 Lead [EK] Stat Ther 07/21/16 22:32 Ordered Medication Orders Potassium Chloride 20 meq/ (Premix) 100 mls @ 50 mls/hr IV ONETIME ONE Stop: 07/22/16 02:06 Last Admin: 07/22/16 00:31 Dose: 50 mls/hr Lactated Ringer's (Ringers, Lactated) 1,000 mls @ 999 mls/hr IV ASDIRECTED MARIA DEL ROSARIO Stop: 07/22/16 02:16 Cefepime HCl 1 gm/ Sodium (Chloride) 50 mls @ 100 mls/hr IV Q8HR MARIA DEL ROSARIO Sodium Chloride (Saline Flush) 10 ml FLUSH ASDIRECTED PRN PRN Reason: Keep Vein Open Last Admin: 07/21/16 23:13 Dose: 10 ml Admin: 07/21/16 21:26 Dose: 10 ml Assessment/Plan Comment:: Assessment and Plan - Sepsis with bacteremia suspect - no evidence for pulmonary, abdominal or bladder infection at this time. Skin exam is not suggestive of infection. I'm worried that she has a bloodstream infection possibly related to stenting performed earlier in the day. She has evidence for sepsis including hypotension , tachycardia and lactic acidosis. Quickly she looks well at least as compared to her blood tests. She has received about exam the emergency room. She is receiving a fluid bolus but do to difficulty with IV access has just completed her first liter of fluid. I'm not going to repeat lactic acid at this point because of an incomplete fluid bolus. With intra-abdominal surgery gram- negative bacteria are the most likely culprits. -Antibiotic coverage with cefepime and ciprofloxacin -Continue IV fluid challenges until blood pressure normalizes -Hydrocortisone x1 -Cardiac monitoring -Repeat lactic acid level -Blood cultures -Repeat labs in a few hours Hypokalemia - Initially reported as hyperkalemia a repeat testing revealed significant hypokalemia. She's getting 40 mEq in the emergency room. She has received Kayexalate. -Repeat labs in the morning, continue replacement as indicated Recurrent pancreatic cancer - Patient with apparent second primary pancreatic cancer. She is receiving chemotherapy at this time with the [facility] and [facility] both contributing to the care plan. Last chemotherapy was a couple weeks ago. Maintenance issues - - DVT prophylaxis - Apixiban - GI prophylaxis - PPI - Nutrition - clear liquids - Feldman catheter - placed in the ER CODE STATUS - FULL Admission justification - This patient will be admitted for inpatient services and is medically appropriate meeting medical necessity for inpatient admission as outlined in my documentation. I reasonably expect the patient will require inpatient services that span a period time over 2 midnights. I reasonably expect this patient to be discharged or transferred within 96 hours after admission to the [facility]. Disposition - anticipate discharge to home after the hospital stay Primary care physician - Dr Power Pappas M.D.
[2016-07-22] MEDS ORDERED: 50% Dextrose in Water 50 ML Syringe IVPUSH ONE (01:34)
[2016-07-22] MEDS ORDERED: Leflunomide 20 MG Tab PO SCH (02:00)
[2016-07-22] MEDS ORDERED: Polyethylene Glycol 3350 Powder 17 GM Packet PO PRN (02:07)
[2016-07-22] MEDS ORDERED: LORazepam 2 MG/ML MDV IVPUSH PRN (02:07)
[2016-07-22] MEDS ORDERED: Prochlorperazine 10 MG Tab PO PRN (02:07)
[2016-07-22] MEDS ORDERED: Albuterol 0.083% 2.5 MG/3 ML Neb Soln NEB PRN (02:07)
[2016-07-22] MEDS ORDERED: Acetaminophen 325 MG Tab PO PRN (02:07)
[2016-07-22] MEDS ORDERED: Hydrocortisone Sodium Succinate 100 MG/2 ML SDV ONE (02:15)
[2016-07-22] MEDS ORDERED: Potassium Chloride 100 ML ONE (02:53)
[2016-07-22] MEDS: Ciprofloxacin in D5W 400 MG in Premix Bag 1 BAG IV SCH ×2 (03:02)
[2016-07-22] MEDS: Sodium Chloride 0.9% 1,000 ML IV SCH ×3 (04:40→21:36)
--- NOTE | 2016-07-22 08:49 | PCM.PN ---
- General Info Date of Service: 07/22/16 Functional Status: Reports: pain controlled, tolerating diet - Review of Systems General: Reports: Weakness Gastrointestinal: Reports: Abdominal pain Systems Review Comment:: No acute events overnight. Vomiting has stopped and her abdominal pain has decreased. She has had a couple of episodes of diarrhea overnight she has not had any fevers. In general she is feeling better. Lactic acid is trending down but has not normalized yet. Blood pressures have improved but remain on the low side of normal. Heart rate is now down below 100. No complaints of chest pain or shortness of breath. - Patient Data Vitals - most recent: Last Vital Signs Temp 36.7 C 07/22/16 08:00 Pulse 107 H 07/22/16 08:00 Resp 19 07/22/16 08:00 BP 102/58 L 07/22/16 08:00 Pulse Ox 93 L 07/22/16 06:00 Weight - most recent: 64.682 kg I&O - last 24 hours: Intake & Output 07/21/16 07/22/16 07/22/16 22:59 06:59 14:59 Intake Total 1600 Output Total 350 45 Balance 1250 -45 Lab Results last 24 hrs: Laboratory Results - last 24 hr 07/22/16 07/22/16 07/22/16 Range/Units 04:45 04:45 04:45 WBC 20.5 H (4.5-11.0) K/uL RBC 2.50 L (3.30-5.50) M/uL Hgb 9.1 L D (12.0-15.0) g/dL Hct 26.8 L (36.0-48.0) % MCV 107 H (80-98) fL MCH 36 H (27-31) pg MCHC 34 (32-36) % Plt Count 81 L (150-400) K/uL Sodium 138 L (140-148) mmol/L Potassium 4.0 (3.6-5.2) mmol/L Chloride 105 (100-108) mmol/L Carbon Dioxide 26 (21-32) mmol/L Anion Gap 11.0 (5.0-14.0) mmol/L BUN 10 (7-18) mg/dL Creatinine 1.3 H (0.6-1.0) mg/dL Est Cr Clr Drug Dosing 37.36 mL/min Estimated GFR (MDRD) 40 L (>60) Glucose 126 H (74-106) mg/dL Lactic Acid 6.6 H (0.4-2.0) mmol/L Calcium 6.5 L* (8.5-10.1) mg/dL Magnesium 1.4 L (1.8-2.4) mg/dL C-Reactive Protein 8.14 H (0.0-0.3) mg/dL Med Orders - Current: Current Medications Acetaminophen (Tylenol) 650 mg PO Q4H PRN PRN Reason: Pain (Mild 1-3)/fever Hydrocodone Bitart/Acetaminophen ([place] 325-5 Mg) 1 tab PO Q6H PRN PRN Reason: Pain Albuterol (Proventil Neb Soln) 2.5 mg NEB Q4H PRN PRN Reason: Shortness Of Breath/wheezing Amitriptyline HCl (Elavil) 25 mg PO BEDTIME [facility] Lipase/Protease/Amylase (Creon Dr 12,000 Units) 4 cap PO TID [facility] Apixaban (Eliquis) 2.5 mg PO BID [facility] Sodium Chloride (Normal Saline) 1,000 mls @ 125 mls/hr IV ASDIRECTED [facility] Last Admin: 07/22/16 04:40 Dose: 125 mls/hr Ciprofloxacin/Dextrose 400 mg/ (Premix) 200 mls @ 200 mls/hr IV Q24H [facility] Last Admin: 07/22/16 03:02 Dose: 200 mls/hr Cefepime HCl 1 gm/ Sodium (Chloride) 50 mls @ 100 mls/hr IV Q8H [facility] Magnesium Sulfate 2 gm/ Premix 50 mls @ 25 mls/hr IV Q6H [facility] Stop: 07/22/16 22:59 Leflunomide (Arava) 10 mg PO Q48H [facility] Lorazepam (Ativan) 0.5 - 1 mg IVPUSH Q4H PRN PRN Reason: Nausea/Vomiting Morphine Sulfate (Morphine) 2 - 4 mg IVPUSH Q2H PRN PRN Reason: Pain (severe 7-10) Ondansetron HCl (Zofran Odt) 4 mg PO Q6H PRN PRN Reason: Nausea able to take PO Ondansetron HCl (Zofran) 4 mg IV Q6H PRN PRN Reason: Nausea/Vomiting Pantoprazole Sodium (Protonix) 40 mg PO ACBREAKFAST [facility] Polyethylene Glycol (Miralax) 17 gm PO DAILY PRN PRN Reason: Constipation Prednisone (Prednisone) 10 mg PO DAILY [facility] Prochlorperazine Maleate (Compazine) 10 mg PO Q6H PRN PRN Reason: Nausea Sodium Chloride (Saline Flush) 10 ml FLUSH ASDIRECTED PRN PRN Reason: Keep Vein Open Last Admin: 07/21/16 23:13 Dose: 10 ml Discontinued Medications Albuterol (Proventil Neb Soln) 2.5 mg NEB ONETIME ONE Stop: 07/21/16 22:30 Last Admin: 07/21/16 22:58 Dose: 2.5 mg Lipase/Protease/Amylase (Creon Dr 12,000 Units) cap PO TID [facility] Calcium Gluconate (Calcium Gluconate) 1 gm IVPUSH ONETIME ONE Stop: 07/21/16 22:30 Last Admin: 07/21/16 23:06 Dose: 1 gm Dextrose/Water (Dextrose 50% In Water) 50 ml IVPUSH ONETIME ONE Stop: 07/21/16 22:30 Last Admin: 07/21/16 23:00 Dose: 50 ml Dextrose/Water (Dextrose 50% In Water) 50 ml IVPUSH ONETIME ONE Stop: 07/22/16 01:35 Last Admin: 07/22/16 02:11 Dose: 50 ml Hydrocortisone Sodium Succinate (Solu-Cortef) 100 mg IVPUSH ONETIME ONE Stop: 07/22/16 01:05 Last Admin: 07/22/16 02:18 Dose: 100 mg Hydrocortisone Sodium Succinate (Solu-Cortef) Confirm Administered Dose 100 mg .ROUTE .STK-MED ONE Stop: 07/22/16 02:16 Last Admin: 07/22/16 02:55 Dose: Not Given Hydromorphone HCl (Dilaudid) 1 mg IVPUSH ONETIME ONE Stop: 07/21/16 21:12 Last Admin: 07/21/16 21:26 Dose: 1 mg Lactated Ringer's (Ringers, Lactated) 1,000 mls @ 500 mls/hr IV BOLUS ONE Stop: 07/21/16 23:10 Last Infusion: 07/21/16 22:21 Dose: 250 mls/hr Potassium Chloride 40 meq/ (Premix) 100 mls @ 25 mls/hr IV ONETIME ONE Stop: 07/22/16 03:43 Potassium Chloride 20 meq/ (Premix) 100 mls @ 50 mls/hr IV ONETIME ONE Stop: 07/22/16 02:06 Last Admin: 07/22/16 00:31 Dose: 50 mls/hr Lactated Ringer's (Ringers, Lactated) 1,000 mls @ 999 mls/hr IV ASDIRECTED [facility] Stop: 07/22/16 02:16 Last Admin: 07/22/16 02:57 Dose: 999 mls/hr Cefepime HCl 1 gm/ Sodium (Chloride) 50 mls @ 100 mls/hr IV Q8H [facility] Last Admin: 07/22/16 01:43 Dose: 100 mls/hr Potassium Chloride 20 meq/ (Premix) 100 mls @ 50 mls/hr IV ONETIME ONE Stop: 07/22/16 04:59 Last Admin: 07/22/16 02:57 Dose: 50 mls/hr Potassium Chloride (Kcl 20 Meq In Water 100 Ml) Confirm Administered Dose 100 mls @ as directed .ROUTE .STK-MED ONE Stop: 07/22/16 02:54 Last Admin: 07/22/16 03:05 Dose: Not Given Insulin Human Regular (Novolin R) 5 unit IVPUSH ONETIME ONE PRN Reason: Protocol Stop: 07/21/16 22:30 Last Admin: 07/21/16 23:03 Dose: 5 units Leflunomide (Arava) 10 mg PO Q48H [facility] Last Admin: 07/22/16 04:29 Dose: Not Given Potassium Chloride (Klor-Con M20) 40 meq PO ONETIME ONE Stop: 07/21/16 23:45 Last Admin: 07/22/16 00:33 Dose: 40 meq Prochlorperazine Edisylate (Compazine) 10 mg IVPUSH ONETIME ONE Stop: 07/21/16 21:14 Last Admin: 07/21/16 21:22 Dose: 10 mg Sodium Polystyrene Sulfonate (Kayexalate) 15 gm PO ONETIME ONE Stop: 07/21/16 22:30 Last Admin: 07/21/16 23:11 Dose: 15 gm Sodium Polystyrene Sulfonate (Kayexalate) 45 gm RECTAL NOW ONE Stop: 07/21/16 22:30 Last Admin: 07/21/16 23:26 Dose: Not Given - Exam Quality Assessment: urine catheter. No: supplemental oxygen General: alert, oriented, cooperative, no acute distress Neck: supple Lungs: Clear to auscultation, Normal respiratory effort, Decreased breath sounds (both bases) Cardiovascular: Regular Rhythm, Tachycardia, Murmurs Abdomen: bowel sounds present, soft, no tenderness, no distension Extremities: no cyanosis, edema (pitting edema from feet to waist ) Skin: warm, dry Wound/Incisions: dressing dry and intact (left elbow) Psy/Mental Status: alert, normal affect - Problem List & Annotations (1) Clostridium difficile colitis SNOMED Code(s): 647927164 Code(s): A04.7 - ENTEROCOLITIS DUE TO CLOSTRIDIUM DIFFICILE Status: Acute Current Visit: Yes (2) Sepsis SNOMED Code(s): 51175245 Code(s): A41.9 - SEPSIS, UNSPECIFIED ORGANISM Status: Acute Current Visit : Yes Qualifiers: Sepsis type: sepsis due to unspecified organism Qualified Code(s): A41.9 - Sepsis, unspecified organism Annotation/Comment:: Secondary to Clostridium difficile (3) Acute kidney injury SNOMED Code(s): 22133901 Code(s): N17.9 - ACUTE KIDNEY FAILURE, UNSPECIFIED Status: Acute Current Visit: Yes (4) Hypokalemia SNOMED Code(s): 34351260 Code(s): E87.6 - HYPOKALEMIA Status: Acute Current Visit: Yes (5) Pancreatic cancer SNOMED Code(s): 704396398 Code(s): C25.9 - MALIGNANT NEOPLASM OF PANCREAS, UNSPECIFIED Status: Chronic Current Visit: Yes Qualifiers: Pancreatic malignancy location: tail of pancreas Qualified Code(s): C25.2 - Malignant neoplasm of tail of pancreas Annotation/Comment:: Recurrent, suspect second primary pancreatic cancer - Problem List Review Problem List Initiated/Reviewed/Updated: Yes - My Orders Last 24 Hours: My Active Orders 07/22/16 01:10 Resuscitation Status Routine 07/22/16 01:35 Pressure Reduction Mattress [OM.PC] Routine 07/22/16 02:00 Ciprofloxacin in D5W [Cipro in D5W 400 MG/200 ML] 400 mg Premix Bag 1 bag IV Q24H 07/22/16 02:07 Patient Status [ADT] Routine Bedrest Bedside Commode [RC] ASDIRECTED Cardiac Monitoring [RC] CONTINUOUS Intake and Output [RC] QSHIFT Notify Provider Vital Signs [RC] ASDIRECTED Oxygen Therapy [RC] PRN Pulse Oximetry [RC] CONTINUOUS RT Aerosol Therapy [RC] ASDIRECTED VTE/DVT Education [RC] Per Unit Routine Vital Signs [RC] Q2HR GLUCOSE POC LAB TO COLLECT [POC] Stat Acetaminophen [Tylenol] 650 mg PO Q4H PRN Albuterol [Proventil Neb Soln] 2.5 mg NEB Q4H PRN LORazepam [Ativan] 0.5 - 1 mg IVPUSH Q4H PRN Morphine 2 - 4 mg IVPUSH Q2H PRN Ondansetron [Zofran ODT] 4 mg PO Q6H PRN Ondansetron [Zofran] 4 mg IV Q6H PRN Polyethylene Glycol 3350 [MiraLAX] 17 gm PO DAILY PRN Sodium Chloride 0.9% [Normal Saline] 1,000 ml IV ASDIRECTED 07/22/16 07:30 Pantoprazole [ProTONIX] 40 mg PO ACBREAKFAST 07/22/16 09:00 Amylase/Lipase/Protease [Lyndsey LOVING 12,000 Units] 2 cap PO TID Leflunomide [Arava] 10 mg PO Q48H Magnesium Sulfate/Water [Magnesium Sulfate 2 GM in Water 50 ML] 2 gm Premix Bag 1 bag IV Q6H 07/22/16 10:00 Cefepime [Maxipime] 1 gm Sodium Chloride 0.9% [Normal Saline] 50 ml IV Q8H 07/22/16 12:00 LACTIC ACID [CHEM] Timed 07/22/16 Lunch Low Sodium [Sodium Restricted Diet] [DIET] 07/23/16 05:00 BASIC METABOLIC PANEL,BMP [CHEM] Timed CBC W/O DIFF,HEMOGRAM [HEME] Timed (1) - Plan Plan:: Assessment and Plan - Clostridium difficile colitis with sepsis - likely cause for infection now that we have a positive C. difficile test. Cannot completely rule out bacteremia at this time so I will continue her broad-spectrum antibiotics. Clinically she is improving and looks well but her laboratory studies are still abnormal with a persistently elevated lactic acid. Heart rate and blood pressure have improved. Cultures negative so far. -Metronidazole 3 times a day -Probiotics twice daily -Antibiotic coverage with cefepime and ciprofloxacin, D. escalate tomorrow if cultures are negative -Continue IV fluids -Cardiac monitoring -Repeat lactic acid level in the morning -Blood cultures -Repeat labs in a few hours -Start physical therapy tomorrow to help with generalized weakness Acute kidney injury - secondary to sepsis, levels are stable. Urine output has been adequate. -IV fluids -Labs in the morning Hypokalemia - Initially reported as hyperkalemia a repeat testing revealed significant hypokalemia. Potassium level has now normalized. -Repeat labs in the morning, continue replacement as indicated Difficult IV access - patient will be needing chemotherapy in the future, having difficulty with IV access now. I did contact Dr. Gar about a more permanent solution and he recommended a Rizvi catheter. The plan is for this to be placed in the morning. -N.p.o. after midnight Recurrent pancreatic cancer - Patient with apparent second primary pancreatic cancer. She is receiving chemotherapy at this time with the [facility] and [facility] both contributing to the care plan. Last chemotherapy was a couple weeks ago. Maintenance issues - - DVT prophylaxis - Apixiban - GI prophylaxis - PPI - Nutrition - clear liquids - Feldman catheter - placed in the ER Disposition - anticipate discharge to home after the hospital stay Orlin Pappas M.D.
[2016-07-22] MEDS ORDERED: Amylase/Lipase/Protease 12,000 Unit Cap.CR PO SCH ×2 (09:00)
[2016-07-22] MEDS: Apixaban 2.5 MG Tab PO SCH (09:01)
[2016-07-22] MEDS: Leflunomide 20 MG Tab PO SCH (09:01)
[2016-07-22] MEDS: predniSONE 10 MG Tab PO SCH (09:01)
[2016-07-22] MEDS: Pantoprazole 40 MG Tab.CR PO SCH (09:01)
[2016-07-22] MEDS: Magnesium Sulfate/Water 2 GM in Premix Bag 1 BAG IV SCH ×3 (09:02→20:18)
[2016-07-22] MEDS: Amylase/Lipase/Protease 6,000 Unit Cap.CR PO SCH ×3 (09:23→17:17)
[2016-07-22] MEDS: Cefepime 1 GM in Sodium Chloride 0.9% 50 ML IV SCH ×2 (10:28→17:39)
[2016-07-22] MEDS: metroNIDAZOLE 250 MG Tab PO SCH ×2 (14:11→21:06)
[2016-07-22] MEDS: Amitriptyline 25 MG Tab PO SCH (20:18)
[2016-07-22] MEDS: Lactobacillus Rhamnosus GG (Probiotic) Cap PO SCH (21:06)
[2016-07-23] MEDS: Cefepime 1 GM in Sodium Chloride 0.9% 50 ML IV SCH (02:01)
[2016-07-23] MEDS: Ciprofloxacin in D5W 400 MG in Premix Bag 1 BAG IV SCH ×2 (02:03)
[2016-07-23] MEDS: metroNIDAZOLE 250 MG Tab PO SCH ×3 (05:22→22:00)
[2016-07-23] MEDS ORDERED: Bupivacaine 0.5% 50 ML MDV ONE (06:55)
[2016-07-23] MEDS ORDERED: Lidocaine 1% with EPINEPHrine 1:100,000 50 ML MDV ONE (06:55)
[2016-07-23] MEDS ORDERED: fentaNYL 100 MCG/2 ML SDV ONE (08:22)
[2016-07-23] MEDS ORDERED: Propofol 200 MG/20 ML SDV ONE (08:22)
[2016-07-23] MEDS ORDERED: Midazolam 1 MG/ML 2 ML SDV ONE (08:22)
--- NOTE | 2016-07-23 08:47 | PCM.PN ---
- General Info Date of Service: 07/23/16 Functional Status: Reports: pain controlled, tolerating diet, urinating - Review of Systems General: Reports: Weakness Gastrointestinal: Reports: Abdominal pain (mild lower abdomen). Denies: Diarrhea Systems Review Comment:: No acute events overnight. Blood pressures have continued slow improvement in heart rate has been stable around 100. Lower extremity edema is stable. Lower abdominal pain has been improving but not quite resolved. No diarrhea overnight. No vomiting overnight. Tolerating diet so far. Blood cultures have all remained negative. - Patient Data Vitals - most recent: Last Vital Signs Temp 36.2 C 07/23/16 08:00 Pulse 101 H 07/23/16 06:00 Resp 20 07/23/16 08:00 BP 114/69 07/23/16 08:00 Pulse Ox 97 07/23/16 08:00 Weight - most recent: 64.682 kg I&O - last 24 hours: Intake & Output 07/22/16 07/23/16 07/23/16 22:59 06:59 14:59 Intake Total 3182 1925 Output Total 350 Balance 3182 1575 Lab Results last 24 hrs: Laboratory Results - last 24 hr 07/22/16 07/23/16 07/23/16 Range/Units 12:15 06:08 06:08 WBC 19.9 H (4.5-11.0) K/uL RBC 2.51 L (3.30-5.50) M/uL Hgb 9.0 L (12.0-15.0) g/dL Hct 26.8 L (36.0-48.0) % MCV 107 H (80-98) fL MCH 36 H (27-31) pg MCHC 34 (32-36) % Plt Count 76 L (150-400) K/uL Sodium 140 (140-148) mmol/L Potassium 3.6 (3.6-5.2) mmol/L Chloride 108 (100-108) mmol/L Carbon Dioxide 25 (21-32) mmol/L Anion Gap 7.0 (5.0-14.0) mmol/L BUN 8 (7-18) mg/dL Creatinine 1.0 (0.6-1.0) mg/dL Est Cr Clr Drug Dosing 48.57 mL/min Estimated GFR (MDRD) 55 L (>60) Glucose 113 H (74-106) mg/dL Lactic Acid 4.5 H (0.7-2.1) mmol/L Calcium 6.3 L* (8.5-10.1) mg/dL 07/23/16 Range/Units 06:08 WBC (4.5-11.0) K/uL RBC (3.30-5.50) M/uL Hgb (12.0-15.0) g/dL Hct (36.0-48.0) % MCV (80-98) fL MCH (27-31) pg MCHC (32-36) % Plt Count (150-400) K/uL Sodium (140-148) mmol/L Potassium (3.6-5.2) mmol/L Chloride (100-108) mmol/L Carbon Dioxide (21-32) mmol/L Anion Gap (5.0-14.0) mmol/L BUN (7-18) mg/dL Creatinine (0.6-1.0) mg/dL Est Cr Clr Drug Dosing mL/min Estimated GFR (MDRD) (>60) Glucose (74-106) mg/dL Lactic Acid 2.9 H (0.7-2.1) mmol/L Calcium (8.5-10.1) mg/dL Flavio Results last 24 hrs: Microbiology 07/22/16 01:25 Aerobic Blood Culture - Preliminary Blood - Venous NO GROWTH AFTER 1 DAY Anaerobic Blood Culture - Preliminary NO GROWTH AFTER 1 DAY 07/22/16 01:20 Aerobic Blood Culture - Preliminary Blood - Arm, Right NO GROWTH AFTER 1 DAY Anaerobic Blood Culture - Preliminary NO GROWTH AFTER 1 DAY 07/22/16 12:45 Clostridium difficile (PCR) - Final Stool / Feces Positive C. Diff Toxin Med Orders - Current: Current Medications Acetaminophen (Tylenol) 650 mg PO Q4H PRN PRN Reason: Pain (Mild 1-3)/fever Hydrocodone Bitart/Acetaminophen ([place] 325-5 Mg) 1 tab PO Q6H PRN PRN Reason: Pain Albuterol (Proventil Neb Soln) 2.5 mg NEB Q4H PRN PRN Reason: Shortness Of Breath/wheezing Amitriptyline HCl (Elavil) 25 mg PO BEDTIME [facility] Last Admin: 07/22/16 20:18 Dose: 25 mg Lipase/Protease/Amylase (Creon Dr 6,000 Units) 8 cap PO TIDMEALS [facility] Last Admin: 07/22/16 17:17 Dose: 8 cap Apixaban (Eliquis) 2.5 mg PO BID [facility] Last Admin: 07/22/16 09:01 Dose: 2.5 mg Sodium Chloride (Normal Saline) 1,000 mls @ 125 mls/hr IV ASDIRECTED [facility] Last Admin: 07/22/16 21:36 Dose: 125 mls/hr Lactobacillus Rhamnosus (Culturelle) 2 cap PO BID [facility] Last Admin: 07/22/16 21:06 Dose: 2 cap Leflunomide (Arava) 10 mg PO Q48H [facility] Last Admin: 07/22/16 09:01 Dose: 10 mg Lorazepam (Ativan) 0.5 - 1 mg IVPUSH Q4H PRN PRN Reason: Nausea/Vomiting Metronidazole (Metronidazole) 500 mg PO Q8H [facility] Last Admin: 07/23/16 05:22 Dose: Not Given Morphine Sulfate (Morphine) 2 - 4 mg IVPUSH Q2H PRN PRN Reason: Pain (severe 7-10) Ondansetron HCl (Zofran Odt) 4 mg PO Q6H PRN PRN Reason: Nausea able to take PO Ondansetron HCl (Zofran) 4 mg IV Q6H PRN PRN Reason: Nausea/Vomiting Pantoprazole Sodium (Protonix) 40 mg PO ACBREAKFAST [facility] Last Admin: 07/22/16 09:01 Dose: 40 mg Polyethylene Glycol (Miralax) 17 gm PO DAILY PRN PRN Reason: Constipation Prednisone (Prednisone) 10 mg PO DAILY [facility] Last Admin: 07/22/16 09:01 Dose: 10 mg Prochlorperazine Maleate (Compazine) 10 mg PO Q6H PRN PRN Reason: Nausea Sodium Chloride (Saline Flush) 10 ml FLUSH ASDIRECTED PRN PRN Reason: Keep Vein Open Last Admin: 07/21/16 23:13 Dose: 10 ml Discontinued Medications Albuterol (Proventil Neb Soln) 2.5 mg NEB ONETIME ONE Stop: 07/21/16 22:30 Last Admin: 07/21/16 22:58 Dose: 2.5 mg Lipase/Protease/Amylase (Lyndsey Campo 12,000 Units) cap PO TID [facility] Lipase/Protease/Amylase (Lyndsey Campo 12,000 Units) 4 cap PO TID [facility] Bupivacaine HCl (Marcaine 0.5%) Confirm Administered Dose 50 ml .ROUTE .STK-MED ONE Stop: 07/23/16 06:56 Calcium Gluconate (Calcium Gluconate) 1 gm IVPUSH ONETIME ONE Stop: 07/21/16 22:30 Last Admin: 07/21/16 23:06 Dose: 1 gm Dextrose/Water (Dextrose 50% In Water) 50 ml IVPUSH ONETIME ONE Stop: 07/21/16 22:30 Last Admin: 07/21/16 23:00 Dose: 50 ml Dextrose/Water (Dextrose 50% In Water) 50 ml IVPUSH ONETIME ONE Stop: 07/22/16 01:35 Last Admin: 07/22/16 02:11 Dose: 50 ml Fentanyl (Sublimaze) Confirm Administered Dose 100 mcg .ROUTE .STK-MED ONE Stop: 07/23/16 08:23 Heparin Sodium (Porcine) (Heparin Lock Flush 100 Units/Ml Syringe) Confirm Administered Dose 1,500 units .ROUTE .STK-MED ONE Stop: 07/23/16 06:56 Hydrocortisone Sodium Succinate (Solu-Cortef) 100 mg IVPUSH ONETIME ONE Stop: 07/22/16 01:05 Last Admin: 07/22/16 02:18 Dose: 100 mg Hydrocortisone Sodium Succinate (Solu-Cortef) Confirm Administered Dose 100 mg .ROUTE .STK-MED ONE Stop: 07/22/16 02:16 Last Admin: 07/22/16 02:55 Dose: Not Given Hydromorphone HCl (Dilaudid) 1 mg IVPUSH ONETIME ONE Stop: 07/21/16 21:12 Last Admin: 07/21/16 21:26 Dose: 1 mg Lactated Ringer's (Ringers, Lactated) 1,000 mls @ 500 mls/hr IV BOLUS ONE Stop: 07/21/16 23:10 Last Infusion: 07/21/16 22:21 Dose: 250 mls/hr Potassium Chloride 40 meq/ (Premix) 100 mls @ 25 mls/hr IV ONETIME ONE Stop: 07/22/16 03:43 Potassium Chloride 20 meq/ (Premix) 100 mls @ 50 mls/hr IV ONETIME ONE Stop: 07/22/16 02:06 Last Admin: 07/22/16 00:31 Dose: 50 mls/hr Lactated Ringer's (Ringers, Lactated) 1,000 mls @ 999 mls/hr IV ASDIRECTED [facility] Stop: 07/22/16 02:16 Last Admin: 07/22/16 02:57 Dose: 999 mls/hr Cefepime HCl 1 gm/ Sodium (Chloride) 50 mls @ 100 mls/hr IV Q8H [facility] Last Admin: 07/22/16 01:43 Dose: 100 mls/hr Ciprofloxacin/Dextrose 400 mg/ (Premix) 200 mls @ 200 mls/hr IV Q24H [facility] Last Admin: 07/23/16 02:03 Dose: 200 mls/hr Potassium Chloride 20 meq/ (Premix) 100 mls @ 50 mls/hr IV ONETIME ONE Stop: 07/22/16 04:59 Last Admin: 07/22/16 02:57 Dose: 50 mls/hr Potassium Chloride (Kcl 20 Meq In Water 100 Ml) Confirm Administered Dose 100 mls @ as directed .ROUTE .STK-MED ONE Stop: 07/22/16 02:54 Last Admin: 07/22/16 03:05 Dose: Not Given Cefepime HCl 1 gm/ Sodium (Chloride) 50 mls @ 100 mls/hr IV Q8H [facility] Last Admin: 07/23/16 02:01 Dose: 100 mls/hr Magnesium Sulfate 2 gm/ Premix 50 mls @ 25 mls/hr IV Q6H [facility] Stop: 07/22/16 22:59 Last Admin: 07/22/16 20:18 Dose: 25 mls/hr Insulin Human Regular (Novolin R) 5 unit IVPUSH ONETIME ONE PRN Reason: Protocol Stop: 07/21/16 22:30 Last Admin: 07/21/16 23:03 Dose: 5 units Leflunomide (Arava) 10 mg PO Q48H [facility] Last Admin: 07/22/16 04:29 Dose: Not Given Lidocaine/Epinephrine (Xylocaine 1% With Epinephrine 1:100,000) Confirm Administered Dose 50 ml .ROUTE .STK-MED ONE Stop: 07/23/16 06:56 Midazolam HCl (Versed 1 Mg/Ml) Confirm Administered Dose 2 mg .ROUTE .STK-MED ONE Stop: 07/23/16 08:23 Potassium Chloride (Klor-Con M20) 40 meq PO ONETIME ONE Stop: 07/21/16 23:45 Last Admin: 07/22/16 00:33 Dose: 40 meq Prochlorperazine Edisylate (Compazine) 10 mg IVPUSH ONETIME ONE Stop: 07/21/16 21:14 Last Admin: 07/21/16 21:22 Dose: 10 mg Propofol (Diprivan 20 Ml) Confirm Administered Dose 200 mg .ROUTE .STK-MED ONE Stop: 07/23/16 08:23 Sodium Polystyrene Sulfonate (Kayexalate) 15 gm PO ONETIME ONE Stop: 07/21/16 22:30 Last Admin: 07/21/16 23:11 Dose: 15 gm Sodium Polystyrene Sulfonate (Kayexalate) 45 gm RECTAL NOW ONE Stop: 07/21/16 22:30 Last Admin: 07/21/16 23:26 Dose: Not Given - Exam Quality Assessment: No: supplemental oxygen General: alert, oriented, cooperative, no acute distress Neck: supple Lungs: Clear to auscultation, Normal respiratory effort Cardiovascular: Regular Rhythm, Tachycardia Abdomen: bowel sounds present, soft, tenderness (mild generalized ), distension (mild) Extremities: no cyanosis, edema (pitting edema from feet to lower abomen, rosanna in dependent areas) Skin: warm, dry Psy/Mental Status: alert, normal affect - Problem List & Annotations (1) Clostridium difficile colitis SNOMED Code(s): 574039945 Code(s): A04.7 - ENTEROCOLITIS DUE TO CLOSTRIDIUM DIFFICILE Status: Acute Current Visit: Yes (2) Sepsis SNOMED Code(s): 28477407 Code(s): A41.9 - SEPSIS, UNSPECIFIED ORGANISM Status: Acute Current Visit : Yes Qualifiers: Sepsis type: sepsis due to unspecified organism Qualified Code(s): A41.9 - Sepsis, unspecified organism Annotation/Comment:: Secondary to Clostridium difficile (3) Acute kidney injury SNOMED Code(s): 41917152 Code(s): N17.9 - ACUTE KIDNEY FAILURE, UNSPECIFIED Status: Acute Current Visit: Yes (4) Hypokalemia SNOMED Code(s): 71729353 Code(s): E87.6 - HYPOKALEMIA Status: Acute Current Visit: Yes (5) Pancreatic cancer SNOMED Code(s): 274557774 Code(s): C25.9 - MALIGNANT NEOPLASM OF PANCREAS, UNSPECIFIED Status: Chronic Current Visit: Yes Qualifiers: Pancreatic malignancy location: tail of pancreas Qualified Code(s): C25.2 - Malignant neoplasm of tail of pancreas Annotation/Comment:: Recurrent, suspect second primary pancreatic cancer - Problem List Review Problem List Initiated/Reviewed/Updated: Yes - My Orders Last 24 Hours: My Active Orders 07/22/16 08:00 Amylase/Lipase/Protease [Lyndsey CAMPO 6,000 Units] 8 cap PO TIDMEALS 07/22/16 09:00 Leflunomide [Arava] 10 mg PO Q48H 07/22/16 09:44 Central Line PICC Insertion [Central Venous Line Insertion] [OM.PC] Routine 07/22/16 09:45 Central Line, ICU [RC] QSHIFT 07/22/16 14:00 metroNIDAZOLE 500 mg PO Q8H 07/22/16 15:44 Consult to Physician [CONS] Routine 07/22/16 15:45 Notify Provider Consults [RC] ASDIRECTED 07/22/16 21:00 Lactobacillus Rhamnosus GG [Culturelle] 2 cap PO BID 07/22/16 Dinner NPO After Midnight [Nothing per Oral After Midnight Diet] [DIET] 07/22/16 Lunch Low Sodium [Sodium Restricted Diet] [DIET] 07/23/16 08:42 Up With Assistance [RC] ASDIRECTED PT Evaluation and Treatment [CONS] Routine 07/23/16 08:44 CONNIE Hose [Antiembolic Hose] [OM.PC] Routine 07/23/16 09:00 Metoprolol Tartrate [Lopressor] 12.5 mg PO BID 07/24/16 05:00 BASIC METABOLIC PANEL,BMP [CHEM] Timed CBC W/O DIFF,HEMOGRAM [HEME] Timed (1) LACTIC ACID [CHEM] Timed 07/24/16 09:00 Furosemide [Lasix] 40 mg PO DAILY - Plan Plan:: Assessment and Plan - Clostridium difficile colitis with sepsis - quickly improving, blood cultures negative after 36 hours. Clostridium difficile infection explains presentation quite well. Diarrhea seems to be slowing already. Lower abdominal pain improving. Tolerating diet. Lactic acid level has not yet normalized but has improved. -Metronidazole 3 times a day -Probiotics twice daily -Discontinue cefepime and ciprofloxacin -Continue gentle IV fluids with mildly elevated lactic acid level -Cardiac monitoring -Repeat lactic acid level in the morning -Blood cultures -Repeat labs in a few hours -Start physical therapy to help with generalized weakness Acute kidney injury - secondary to sepsis, levels are stable improving. -Gentle IV fluids -Labs in the morning Hypokalemia - Potassium level has now normalized. -Repeat labs in the morning, continue replacement as indicated Difficult IV access - patient will be needing chemotherapy in the future, having difficulty with IV access now. I did contact Dr. Gar about a more permanent solution and he recommended a Rizvi catheter. -Rizvi catheter placement today Recurrent pancreatic cancer - Patient with apparent second primary pancreatic cancer. She is receiving chemotherapy at this time with the [facility] and [facility] both contributing to the care plan. Last chemotherapy was a couple weeks ago. Maintenance issues - - DVT prophylaxis - Apixiban (will restart after the procedure) - GI prophylaxis - PPI - Nutrition - regular diet after her procedure - Feldman catheter - placed in the ER, will remove in the morning Disposition - anticipate discharge to home after the hospital stay Orlin Pappas M.D.
[2016-07-23] MEDS: Sodium Chloride 0.9% 1,000 ML IV SCH ×4 (09:01→23:06)
[2016-07-23] MEDS: Metoprolol Tartrate 25 MG Tab PO SCH ×2 (10:53→20:27)
[2016-07-23] MEDS: predniSONE 10 MG Tab PO SCH (10:53)
[2016-07-23] MEDS: Lactobacillus Rhamnosus GG (Probiotic) Cap PO SCH ×2 (10:53→20:26)
[2016-07-23] MEDS: Pantoprazole 40 MG Tab.CR PO SCH (10:53)
[2016-07-23] MEDS: Amylase/Lipase/Protease 6,000 Unit Cap.CR PO SCH ×3 (10:54→17:22)
[2016-07-23] MEDS: Apixaban 2.5 MG Tab PO SCH (20:26)
[2016-07-23] MEDS: Amitriptyline 25 MG Tab PO SCH (20:26)
[2016-07-23] MEDS ORDERED: Sodium Chloride 0.9% 500 ML IV ONE ×2 (20:52→22:05)
[2016-07-23] MEDS ORDERED: Sodium Chloride 0.9% 1,000 ML IV SCH (21:00)
[2016-07-24] MEDS: metroNIDAZOLE 250 MG Tab PO SCH ×3 (05:27→21:44)
[2016-07-24] MEDS: Sodium Chloride 0.9% 1,000 ML IV SCH ×2 (07:09→09:15)
[2016-07-24] MEDS: Pantoprazole 40 MG Tab.CR PO SCH (07:37)
[2016-07-24] MEDS: Morphine 2 MG/ML Syringe IVPUSH PRN ×2 (07:57→13:33)
[2016-07-24] MEDS ORDERED: Calcium Carbonate 500 MG Tab.Chew PO PRN (08:42)
[2016-07-24] MEDS ORDERED: Furosemide 40 MG/4 ML VIAL IVPUSH ONE (08:45)
--- NOTE | 2016-07-24 08:45 | PCM.PN ---
- General Info Date of Service: 07/24/16 Functional Status: Reports: pain controlled, urinating - Review of Systems General: Reports: Weakness. Denies: Fever Cardiovascular: Reports: Edema Gastrointestinal: Reports: Abdominal pain, Nausea Systems Review Comment:: Patient had several episodes of watery diarrhea overnight as well as low urine output. Urine output did respond to fluid boluses. This morning her abdomen feels distended and she is mildly uncomfortable. She does not complaining of shortness of breath. She has not been having any fevers. She does not have much of an appetite. She is still very weak but has gained a little strength. Blood cultures remain negative. - Patient Data Vitals - most recent: Last Vital Signs Temp 36.9 C 07/23/16 19:56 Pulse 79 07/24/16 06:00 Resp 15 07/24/16 06:00 BP 121/72 07/24/16 06:00 Pulse Ox 91 L 07/24/16 06:00 Weight - most recent: 64.682 kg I&O - last 24 hours: Intake & Output 07/23/16 07/24/16 07/24/16 22:59 06:59 14:59 Intake Total 2326 2549 Output Total 195 225 Balance 2131 2324 Lab Results last 24 hrs: Laboratory Results - last 24 hr 07/24/16 07/24/16 07/24/16 Range/Units 05:32 05:32 05:32 WBC 15.7 H (4.5-11.0) K/uL RBC 2.82 L (3.30-5.50) M/uL Hgb 10.2 L (12.0-15.0) g/dL Hct 30.0 L (36.0-48.0) % MCV 106 H (80-98) fL MCH 36 H (27-31) pg MCHC 34 (32-36) % Plt Count 60 L (150-400) K/uL Sodium 141 (140-148) mmol/L Potassium 3.3 L (3.6-5.2) mmol/L Chloride 110 H (100-108) mmol/L Carbon Dioxide 25 (21-32) mmol/L Anion Gap 9.3 (5.0-14.0) mmol/L BUN 8 (7-18) mg/dL Creatinine 0.8 (0.6-1.0) mg/dL Est Cr Clr Drug Dosing 60.38 mL/min Estimated GFR (MDRD) > 60 (>60) Glucose 91 (74-106) mg/dL Lactic Acid 2.0 (0.4-2.0) mmol/L Calcium 6.3 L* (8.5-10.1) mg/dL Flavio Results last 24 hrs: Microbiology 07/22/16 01:25 Aerobic Blood Culture - Preliminary Blood - Venous NO GROWTH AFTER 2 DAYS Anaerobic Blood Culture - Preliminary NO GROWTH AFTER 2 DAYS 07/22/16 01:20 Aerobic Blood Culture - Preliminary Blood - Arm, Right NO GROWTH AFTER 2 DAYS Anaerobic Blood Culture - Preliminary NO GROWTH AFTER 2 DAYS Med Orders - Current: Current Medications Acetaminophen (Tylenol) 650 mg PO Q4H PRN PRN Reason: Pain (Mild 1-3)/fever Hydrocodone Bitart/Acetaminophen (Whately 325-5 Mg) 1 tab PO Q6H PRN PRN Reason: Pain Albuterol (Proventil Neb Soln) 2.5 mg NEB Q4H PRN PRN Reason: Shortness Of Breath/wheezing Amitriptyline HCl (Elavil) 25 mg PO BEDTIME [facility] Last Admin: 07/23/16 20:26 Dose: 25 mg Lipase/Protease/Amylase (Creon Dr 6,000 Units) 8 cap PO TIDMEALS [facility] Last Admin: 07/23/16 17:22 Dose: 8 cap Apixaban (Eliquis) 2.5 mg PO BID [facility] Last Admin: 07/23/16 20:26 Dose: 2.5 mg Furosemide (Lasix) 40 mg PO DAILY [facility] Furosemide (Lasix) 40 mg IVPUSH ONETIME ONE Stop: 07/24/16 08:46 Sodium Chloride (Normal Saline) 1,000 mls @ 125 mls/hr IV ASDIRECTED [facility] Last Admin: 07/24/16 07:09 Dose: 125 mls/hr Potassium Chloride 20 meq/ (Premix) 100 mls @ 50 mls/hr IV ONETIME ONE Stop: 07/24/16 10:59 Lactobacillus Rhamnosus (Culturelle) 2 cap PO BID [facility] Last Admin: 07/23/16 20:26 Dose: 2 cap Leflunomide (Arava) 10 mg PO Q48H [facility] Last Admin: 07/22/16 09:01 Dose: 10 mg Lorazepam (Ativan) 0.5 - 1 mg IVPUSH Q4H PRN PRN Reason: Nausea/Vomiting Metoprolol Tartrate (Lopressor) 12.5 mg PO BID [facility] Last Admin: 07/23/16 20:27 Dose: 12.5 mg Metronidazole (Metronidazole) 500 mg PO Q8H [facility] Last Admin: 07/24/16 05:27 Dose: 500 mg Morphine Sulfate (Morphine) 2 - 4 mg IVPUSH Q2H PRN PRN Reason: Pain (severe 7-10) Last Admin: 07/24/16 07:57 Dose: 2 mg Ondansetron HCl (Zofran Odt) 4 mg PO Q6H PRN PRN Reason: Nausea able to take PO Ondansetron HCl (Zofran) 4 mg IV Q6H PRN PRN Reason: Nausea/Vomiting Pantoprazole Sodium (Protonix) 40 mg PO ACBREAKFAST [facility] Last Admin: 07/24/16 07:37 Dose: 40 mg Polyethylene Glycol (Miralax) 17 gm PO DAILY PRN PRN Reason: Constipation Potassium Chloride (Klor-Con M20) 40 meq PO ONETIME ONE Stop: 07/24/16 09:01 Prednisone (Prednisone) 10 mg PO DAILY [facility] Last Admin: 07/23/16 10:53 Dose: 10 mg Prochlorperazine Maleate (Compazine) 10 mg PO Q6H PRN PRN Reason: Nausea Sodium Chloride (Saline Flush) 10 ml FLUSH ASDIRECTED PRN PRN Reason: Keep Vein Open Last Admin: 07/21/16 23:13 Dose: 10 ml Discontinued Medications Albuterol (Proventil Neb Soln) 2.5 mg NEB ONETIME ONE Stop: 07/21/16 22:30 Last Admin: 07/21/16 22:58 Dose: 2.5 mg Lipase/Protease/Amylase (Creon Dr 12,000 Units) cap PO TID [facility] Lipase/Protease/Amylase (Creon Dr 12,000 Units) 4 cap PO TID [facility] Bupivacaine HCl (Marcaine 0.5%) Confirm Administered Dose 50 ml .ROUTE .STK-MED ONE Stop: 07/23/16 06:56 Last Admin: 07/23/16 10:44 Dose: 4.5 ml Calcium Gluconate (Calcium Gluconate) 1 gm IVPUSH ONETIME ONE Stop: 07/21/16 22:30 Last Admin: 07/21/16 23:06 Dose: 1 gm Dextrose/Water (Dextrose 50% In Water) 50 ml IVPUSH ONETIME ONE Stop: 07/21/16 22:30 Last Admin: 07/21/16 23:00 Dose: 50 ml Dextrose/Water (Dextrose 50% In Water) 50 ml IVPUSH ONETIME ONE Stop: 07/22/16 01:35 Last Admin: 07/22/16 02:11 Dose: 50 ml Fentanyl (Sublimaze) Confirm Administered Dose 100 mcg .ROUTE .STK-MED ONE Stop: 07/23/16 08:23 Heparin Sodium (Porcine) (Heparin Lock Flush 100 Units/Ml Syringe) Confirm Administered Dose 1,500 units .ROUTE .STK-MED ONE Stop: 07/23/16 06:56 Last Admin: 07/23/16 10:45 Dose: 1,500 units Hydrocortisone Sodium Succinate (Solu-Cortef) 100 mg IVPUSH ONETIME ONE Stop: 07/22/16 01:05 Last Admin: 07/22/16 02:18 Dose: 100 mg Hydrocortisone Sodium Succinate (Solu-Cortef) Confirm Administered Dose 100 mg .ROUTE .STK-MED ONE Stop: 07/22/16 02:16 Last Admin: 07/22/16 02:55 Dose: Not Given Hydromorphone HCl (Dilaudid) 1 mg IVPUSH ONETIME ONE Stop: 07/21/16 21:12 Last Admin: 07/21/16 21:26 Dose: 1 mg Lactated Ringer's (Ringers, Lactated) 1,000 mls @ 500 mls/hr IV BOLUS ONE Stop: 07/21/16 23:10 Last Infusion: 07/21/16 22:21 Dose: 250 mls/hr Potassium Chloride 40 meq/ (Premix) 100 mls @ 25 mls/hr IV ONETIME ONE Stop: 07/22/16 03:43 Potassium Chloride 20 meq/ (Premix) 100 mls @ 50 mls/hr IV ONETIME ONE Stop: 07/22/16 02:06 Last Admin: 07/22/16 00:31 Dose: 50 mls/hr Lactated Ringer's (Ringers, Lactated) 1,000 mls @ 999 mls/hr IV ASDIRECTED [facility] Stop: 07/22/16 02:16 Last Admin: 07/22/16 02:57 Dose: 999 mls/hr Cefepime HCl 1 gm/ Sodium (Chloride) 50 mls @ 100 mls/hr IV Q8H [facility] Last Admin: 07/22/16 01:43 Dose: 100 mls/hr Ciprofloxacin/Dextrose 400 mg/ (Premix) 200 mls @ 200 mls/hr IV Q24H [facility] Last Admin: 07/23/16 02:03 Dose: 200 mls/hr Potassium Chloride 20 meq/ (Premix) 100 mls @ 50 mls/hr IV ONETIME ONE Stop: 07/22/16 04:59 Last Admin: 07/22/16 02:57 Dose: 50 mls/hr Potassium Chloride (Kcl 20 Meq In Water 100 Ml) Confirm Administered Dose 100 mls @ as directed .ROUTE .STK-MED ONE Stop: 07/22/16 02:54 Last Admin: 07/22/16 03:05 Dose: Not Given Cefepime HCl 1 gm/ Sodium (Chloride) 50 mls @ 100 mls/hr IV Q8H [facility] Last Admin: 07/23/16 02:01 Dose: 100 mls/hr Magnesium Sulfate 2 gm/ Premix 50 mls @ 25 mls/hr IV Q6H [facility] Stop: 07/22/16 22:59 Last Admin: 07/22/16 20:18 Dose: 25 mls/hr Sodium Chloride (Normal Saline) 500 mls @ 500 mls/hr IV .BOLUS ONE Stop: 07/23/16 21:51 Last Admin: 07/23/16 21:00 Dose: 500 mls/hr Sodium Chloride (Normal Saline) 500 mls @ 500 mls/hr IV .BOLUS ONE Stop: 07/23/16 23:04 Last Admin: 07/23/16 22:07 Dose: 500 mls/hr Insulin Human Regular (Novolin R) 5 unit IVPUSH ONETIME ONE PRN Reason: Protocol Stop: 07/21/16 22:30 Last Admin: 07/21/16 23:03 Dose: 5 units Leflunomide (Arava) 10 mg PO Q48H [facility] Last Admin: 07/22/16 04:29 Dose: Not Given Lidocaine/Epinephrine (Xylocaine 1% With Epinephrine 1:100,000) Confirm Administered Dose 50 ml .ROUTE .STK-MED ONE Stop: 07/23/16 06:56 Last Admin: 07/23/16 10:44 Dose: 4.5 ml Midazolam HCl (Versed 1 Mg/Ml) Confirm Administered Dose 2 mg .ROUTE .STK-MED ONE Stop: 07/23/16 08:23 Potassium Chloride (Klor-Con M20) 40 meq PO ONETIME ONE Stop: 07/21/16 23:45 Last Admin: 07/22/16 00:33 Dose: 40 meq Prochlorperazine Edisylate (Compazine) 10 mg IVPUSH ONETIME ONE Stop: 07/21/16 21:14 Last Admin: 07/21/16 21:22 Dose: 10 mg Propofol (Diprivan 20 Ml) Confirm Administered Dose 200 mg .ROUTE .STK-MED ONE Stop: 07/23/16 08:23 Sodium Polystyrene Sulfonate (Kayexalate) 15 gm PO ONETIME ONE Stop: 07/21/16 22:30 Last Admin: 07/21/16 23:11 Dose: 15 gm Sodium Polystyrene Sulfonate (Kayexalate) 45 gm RECTAL NOW ONE Stop: 07/21/16 22:30 Last Admin: 07/21/16 23:26 Dose: Not Given - Exam Quality Assessment: urine catheter. No: supplemental oxygen General: alert, oriented, cooperative, no acute distress Neck: supple Lungs: Clear to auscultation, Normal respiratory effort, Decreased breath sounds (mild both bases) Cardiovascular: Regular Rate, Regular Rhythm. No: Murmurs Abdomen: bowel sounds present, soft, tenderness, distension Extremities: no cyanosis, edema (pitting edema of both legs to the waist ) Skin: warm, dry Psy/Mental Status: alert, normal affect - Problem List & Annotations (1) Clostridium difficile colitis SNOMED Code(s): 204784723 Code(s): A04.7 - ENTEROCOLITIS DUE TO CLOSTRIDIUM DIFFICILE Status: Acute Current Visit: Yes (2) Sepsis SNOMED Code(s): 07819179 Code(s): A41.9 - SEPSIS, UNSPECIFIED ORGANISM Status: Acute Current Visit : Yes Qualifiers: Sepsis type: sepsis due to unspecified organism Qualified Code(s): A41.9 - Sepsis, unspecified organism Annotation/Comment:: Secondary to Clostridium difficile (3) Acute kidney injury SNOMED Code(s): 26047834 Code(s): N17.9 - ACUTE KIDNEY FAILURE, UNSPECIFIED Status: Acute Current Visit: Yes (4) Hypokalemia SNOMED Code(s): 27513390 Code(s): E87.6 - HYPOKALEMIA Status: Acute Current Visit: Yes (5) Pancreatic cancer SNOMED Code(s): 955103787 Code(s): C25.9 - MALIGNANT NEOPLASM OF PANCREAS, UNSPECIFIED Status: Chronic Current Visit: Yes Qualifiers: Pancreatic malignancy location: tail of pancreas Qualified Code(s): C25.2 - Malignant neoplasm of tail of pancreas Annotation/Comment:: Recurrent, suspect second primary pancreatic cancer - Problem List Review Problem List Initiated/Reviewed/Updated: Yes - My Orders Last 24 Hours: My Active Orders 07/23/16 08:42 Up With Assistance [RC] ASDIRECTED PT Evaluation and Treatment [CONS] Routine 07/23/16 08:44 CONNIE Hose [Antiembolic Hose] [OM.PC] Routine 07/23/16 09:00 Metoprolol Tartrate [Lopressor] 12.5 mg PO BID 07/24/16 08:09 Furosemide [Lasix] 40 mg IVPUSH ONETIME ONE 07/24/16 08:11 Potassium Chloride [KCL 20 MEQ in Water 100 ML] 20 meq Premix Bag 1 bag IV ONETIME Potassium Chloride [Klor-Con M20] 40 meq PO ONETIME ONE 07/24/16 08:41 Discontinue Telemetry Monitoring [Cardiac Monitoring Discontinue] [RC] Click to Edit 07/24/16 08:42 Dietary Supplements [RC] TIDMEALS Up to Chair [RC] QID Calcium Carbonate [Tums] 1,000 mg PO Q2HR PRN 07/24/16 09:00 Furosemide [Lasix] 40 mg PO DAILY 07/25/16 05:00 BASIC METABOLIC PANEL,BMP [CHEM] Timed CBC W/O DIFF,HEMOGRAM [HEME] Timed (1) - Plan Plan:: Assessment and Plan - Clostridium difficile colitis with sepsis - not much diarrhea yesterday but she had a fair amount overnight. Sepsis has resolved. Tolerating current antibiotics. White blood cell count trending down. -Metronidazole 3 times a day, consider adding vancomycin if diarrhea does not improve further in the next 24 hours -Probiotics twice daily -Gentle IV fluids -Discontinue Cardiac monitoring -Followup Blood cultures -Physical therapy to help with generalized weakness Acute kidney injury - secondary to sepsis, levels have almost normalized. -Gentle IV fluids -Labs in the morning Hypokalemia - Potassium level will again this morning. -Repeat labs in the morning, continue replacement as indicated Difficult IV access - Rizvi catheter placed yesterday and seems to be functioning well. -Rizvi catheter Recurrent pancreatic cancer - Patient with apparent second primary pancreatic cancer. She is receiving chemotherapy at this time with the [facility] and [facility] both contributing to the care plan. Last chemotherapy was a couple weeks ago. Patient will need to improve strength and nutrition before she can have additional chemotherapy. Maintenance issues - - DVT prophylaxis - Apixiban - GI prophylaxis - PPI - Nutrition - regular diet after her procedure - Feldman catheter - placed in the ER, will remove today Disposition - anticipate discharge to home versus [facility] after the hospital stay Orlin Pappas M.D.
[2016-07-24] MEDS ORDERED: Potassium Chloride 20 MEQ in Premix Bag 1 BAG IV ONE (09:00)
[2016-07-24] MEDS ORDERED: Potassium Chloride 20 MEQ Tab.ER PO ONE (09:00)
[2016-07-24] MEDS: Metoprolol Tartrate 25 MG Tab PO SCH ×2 (09:16→20:05)
[2016-07-24] MEDS: Leflunomide 20 MG Tab PO SCH (09:16)
[2016-07-24] MEDS: predniSONE 10 MG Tab PO SCH (09:17)
[2016-07-24] MEDS: Lactobacillus Rhamnosus GG (Probiotic) Cap PO SCH ×2 (09:17→20:05)
[2016-07-24] MEDS: Apixaban 2.5 MG Tab PO SCH ×2 (09:17→20:05)
[2016-07-24] MEDS: Amylase/Lipase/Protease 6,000 Unit Cap.CR PO SCH ×2 (09:29→13:34)
[2016-07-24] MEDS: Ondansetron 4 MG/2 ML SDV IV PRN (09:30)
[2016-07-24] MEDS ORDERED: Albumin 25% 12.5 GM/50 ML BAG IV ONE (15:30)
[2016-07-24] MEDS: Amylase/Lipase/Protease 24,000 Unit Cap.CR PO SCH (18:14)
[2016-07-24] MEDS: Amitriptyline 25 MG Tab PO SCH (20:06)
[2016-07-25] MEDS: Sodium Chloride 0.9% 1,000 ML IV SCH (03:54)
[2016-07-25] MEDS: metroNIDAZOLE 250 MG Tab PO SCH (05:52)
[2016-07-25] MEDS: Pantoprazole 40 MG Tab.CR PO SCH (07:37)
[2016-07-25] MEDS: Amylase/Lipase/Protease 24,000 Unit Cap.CR PO SCH ×3 (07:38→17:40)
[2016-07-25] MEDS: predniSONE 10 MG Tab PO SCH (09:07)
[2016-07-25] MEDS: Apixaban 2.5 MG Tab PO SCH ×2 (09:07→21:43)
[2016-07-25] MEDS: Lactobacillus Rhamnosus GG (Probiotic) Cap PO SCH ×2 (09:07→21:42)
[2016-07-25] MEDS: Metoprolol Tartrate 25 MG Tab PO SCH ×2 (09:08→21:43)
[2016-07-25] MEDS: Vancomycin 250 MG/5 ML ML Oral Solution PO SCH ×3 (10:51→21:49)
[2016-07-25] MEDS: Potassium Chloride 20 MEQ Tab.ER PO SCH ×2 (10:51→17:40)
[2016-07-25] MEDS: Ondansetron 4 MG/2 ML SDV IV PRN (15:51)
--- NOTE | 2016-07-25 16:34 | PCM.PN ---
- General Info Date of Service: 07/25/16 Functional Status: Reports: pain controlled, tolerating diet - Review of Systems General: Reports: Weakness Gastrointestinal: Reports: Abdominal pain, Diarrhea Systems Review Comment:: multiple episodes of watery stool overnight. No significant abdominal pain she has not had any fevers. She's tolerating her diet well. Abdominal distention is much better today after paracentesis yesterday. She does continue to drain some ascites fluid from both the left and right side of her abdomen. White blood cell count has normalized. Blood cultures remained negative. - Patient Data Vitals - most recent: Last Vital Signs Temp 37.4 C 07/25/16 15:24 Pulse 97 07/25/16 15:24 Resp 16 07/25/16 15:24 BP 112/72 07/25/16 15:24 Pulse Ox 98 07/25/16 15:24 Weight - most recent: 64.682 kg I&O - last 24 hours: Intake & Output 07/25/16 07/25/16 07/25/16 06:59 14:59 22:59 Intake Total 1029 380 Output Total 880 1250 Balance 149 -870 Lab Results last 24 hrs: Laboratory Results - last 24 hr 07/25/16 07/25/16 Range/Units 05:55 05:55 WBC 8.6 (4.5-11.0) K/uL RBC 2.74 L (3.30-5.50) M/uL Hgb 9.8 L (12.0-15.0) g/dL Hct 29.1 L (36.0-48.0) % MCV 106 H (80-98) fL MCH 36 H (27-31) pg MCHC 34 (32-36) % Plt Count 44 L (150-400) K/uL Sodium 144 (140-148) mmol/L Potassium 3.0 L (3.6-5.2) mmol/L Chloride 113 H (100-108) mmol/L Carbon Dioxide 26 (21-32) mmol/L Anion Gap 8.0 (5.0-14.0) mmol/L BUN 8 (7-18) mg/dL Creatinine 0.7 (0.6-1.0) mg/dL Est Cr Clr Drug Dosing 69.01 mL/min Estimated GFR (MDRD) > 60 (>60) Glucose 79 (74-106) mg/dL Calcium 6.5 L* (8.5-10.1) mg/dL Flavio Results last 24 hrs: Microbiology 07/22/16 01:25 Aerobic Blood Culture - Preliminary Blood - Venous NO GROWTH AFTER 3 DAYS Anaerobic Blood Culture - Preliminary NO GROWTH AFTER 3 DAYS 07/22/16 01:20 Aerobic Blood Culture - Preliminary Blood - Arm, Right NO GROWTH AFTER 3 DAYS Anaerobic Blood Culture - Preliminary NO GROWTH AFTER 3 DAYS Med Orders - Current: Current Medications Acetaminophen (Tylenol) 650 mg PO Q4H PRN PRN Reason: Pain (Mild 1-3)/fever Hydrocodone Bitart/Acetaminophen (Harshaw 325-5 Mg) 1 tab PO Q6H PRN PRN Reason: Pain Albuterol (Proventil Neb Soln) 2.5 mg NEB Q4H PRN PRN Reason: Shortness Of Breath/wheezing Amitriptyline HCl (Elavil) 25 mg PO BEDTIME [facility] Last Admin: 07/24/16 20:06 Dose: 25 mg Lipase/Protease/Amylase (Creon Dr 24,000 Units) 2 cap PO TIDMEALS [facility] Last Admin: 07/25/16 12:27 Dose: 2 cap Apixaban (Eliquis) 2.5 mg PO BID [facility] Last Admin: 07/25/16 09:07 Dose: 2.5 mg Calcium Carbonate/Glycine (Tums) 1,000 mg PO Q2H PRN PRN Reason: Indigestion Dimethicone/Zinc Oxide (Rash Relief-Zinc Oxide [place]) 0 gm TOP ASDIRECTED PRN PRN Reason: Rash Furosemide (Lasix) 40 mg PO DAILY [facility] Heparin Sodium (Porcine) (Heparin Lock Flush 100 Units/Ml Syringe) 500 units FLUSH ASDIRECTED PRN PRN Reason: IV Use Last Admin: 07/25/16 15:57 Dose: 500 units Lactobacillus Rhamnosus (Culturelle) 2 cap PO BID [facility] Last Admin: 07/25/16 09:07 Dose: 2 cap Leflunomide (Arava) 10 mg PO Q48H [facility] Last Admin: 07/24/16 09:16 Dose: 10 mg Lorazepam (Ativan) 0.5 - 1 mg IVPUSH Q4H PRN PRN Reason: Nausea/Vomiting Metoprolol Tartrate (Lopressor) 12.5 mg PO BID [facility] Last Admin: 07/25/16 09:08 Dose: 12.5 mg Morphine Sulfate (Morphine) 2 - 4 mg IVPUSH Q2H PRN PRN Reason: Pain (severe 7-10) Last Admin: 07/24/16 13:33 Dose: 2 mg Ondansetron HCl (Zofran Odt) 4 mg PO Q6H PRN PRN Reason: Nausea able to take PO Ondansetron HCl (Zofran) 4 mg IV Q6H PRN PRN Reason: Nausea/Vomiting Last Admin: 07/25/16 15:51 Dose: 4 mg Pantoprazole Sodium (Protonix) 40 mg PO ACBREAKFAST [facility] Last Admin: 07/25/16 07:37 Dose: 40 mg Polyethylene Glycol (Miralax) 17 gm PO DAILY PRN PRN Reason: Constipation Potassium Chloride (Klor-Con M20) 40 meq PO BIDMEALS [facility] Last Admin: 07/25/16 10:51 Dose: 40 meq Prednisone (Prednisone) 10 mg PO DAILY [facility] Last Admin: 07/25/16 09:07 Dose: 10 mg Prochlorperazine Maleate (Compazine) 10 mg PO Q6H PRN PRN Reason: Nausea Sodium Chloride (Saline Flush) 10 ml FLUSH ASDIRECTED PRN PRN Reason: Keep Vein Open Last Admin: 07/21/16 23:13 Dose: 10 ml Vancomycin HCl (Vancocin 250 Mg/5 Ml Soln) 125 mg PO QID [facility] Last Admin: 07/25/16 15:16 Dose: 125 mg Discontinued Medications Albuterol (Proventil Neb Soln) 2.5 mg NEB ONETIME ONE Stop: 07/21/16 22:30 Last Admin: 07/21/16 22:58 Dose: 2.5 mg Lipase/Protease/Amylase (Creon Dr 12,000 Units) cap PO TID [facility] Lipase/Protease/Amylase (Creon Dr 12,000 Units) 4 cap PO TID [facility] Lipase/Protease/Amylase (Creon Dr 6,000 Units) 8 cap PO TIDMEALS [facility] Stop: 07/24/16 14:00 Last Admin: 07/24/16 13:34 Dose: Not Given Bupivacaine HCl (Marcaine 0.5%) Confirm Administered Dose 50 ml .ROUTE .STK-MED ONE Stop: 07/23/16 06:56 Last Admin: 07/23/16 10:44 Dose: 4.5 ml Calcium Gluconate (Calcium Gluconate) 1 gm IVPUSH ONETIME ONE Stop: 07/21/16 22:30 Last Admin: 07/21/16 23:06 Dose: 1 gm Dextrose/Water (Dextrose 50% In Water) 50 ml IVPUSH ONETIME ONE Stop: 07/21/16 22:30 Last Admin: 07/21/16 23:00 Dose: 50 ml Dextrose/Water (Dextrose 50% In Water) 50 ml IVPUSH ONETIME ONE Stop: 07/22/16 01:35 Last Admin: 07/22/16 02:11 Dose: 50 ml Fentanyl (Sublimaze) Confirm Administered Dose 100 mcg .ROUTE .STK-MED ONE Stop: 07/23/16 08:23 Furosemide (Lasix) 40 mg IVPUSH ONETIME ONE Stop: 07/24/16 08:46 Last Admin: 07/24/16 09:08 Dose: 40 mg Heparin Sodium (Porcine) (Heparin Lock Flush 100 Units/Ml Syringe) Confirm Administered Dose 1,500 units .ROUTE .STK-MED ONE Stop: 07/23/16 06:56 Last Admin: 07/23/16 10:45 Dose: 1,500 units Heparin Sodium (Porcine) (Heparin Lock Flush 100 Units/Ml Syringe) Confirm Administered Dose 500 units .ROUTE .STK-MED ONE Stop: 07/25/16 05:46 Last Admin: 07/25/16 05:55 Dose: 500 units Hydrocortisone Sodium Succinate (Solu-Cortef) 100 mg IVPUSH ONETIME ONE Stop: 07/22/16 01:05 Last Admin: 07/22/16 02:18 Dose: 100 mg Hydrocortisone Sodium Succinate (Solu-Cortef) Confirm Administered Dose 100 mg .ROUTE .STK-MED ONE Stop: 07/22/16 02:16 Last Admin: 07/22/16 02:55 Dose: Not Given Hydromorphone HCl (Dilaudid) 1 mg IVPUSH ONETIME ONE Stop: 07/21/16 21:12 Last Admin: 07/21/16 21:26 Dose: 1 mg Lactated Ringer's (Ringers, Lactated) 1,000 mls @ 500 mls/hr IV BOLUS ONE Stop: 07/21/16 23:10 Last Infusion: 07/21/16 22:21 Dose: 250 mls/hr Potassium Chloride 40 meq/ (Premix) 100 mls @ 25 mls/hr IV ONETIME ONE Stop: 07/22/16 03:43 Potassium Chloride 20 meq/ (Premix) 100 mls @ 50 mls/hr IV ONETIME ONE Stop: 07/22/16 02:06 Last Admin: 07/22/16 00:31 Dose: 50 mls/hr Lactated Ringer's (Ringers, Lactated) 1,000 mls @ 999 mls/hr IV ASDIRECTED [facility] Stop: 07/22/16 02:16 Last Admin: 07/22/16 02:57 Dose: 999 mls/hr Cefepime HCl 1 gm/ Sodium (Chloride) 50 mls @ 100 mls/hr IV Q8H [facility] Last Admin: 07/22/16 01:43 Dose: 100 mls/hr Sodium Chloride (Normal Saline) 1,000 mls @ 125 mls/hr IV ASDIRECTED [facility] Last Admin: 07/24/16 07:09 Dose: 125 mls/hr Ciprofloxacin/Dextrose 400 mg/ (Premix) 200 mls @ 200 mls/hr IV Q24H [facility] Last Admin: 07/23/16 02:03 Dose: 200 mls/hr Potassium Chloride 20 meq/ (Premix) 100 mls @ 50 mls/hr IV ONETIME ONE Stop: 07/22/16 04:59 Last Admin: 07/22/16 02:57 Dose: 50 mls/hr Potassium Chloride (Kcl 20 Meq In Water 100 Ml) Confirm Administered Dose 100 mls @ as directed .ROUTE .STK-MED ONE Stop: 07/22/16 02:54 Last Admin: 07/22/16 03:05 Dose: Not Given Cefepime HCl 1 gm/ Sodium (Chloride) 50 mls @ 100 mls/hr IV Q8H [facility] Last Admin: 07/23/16 02:01 Dose: 100 mls/hr Magnesium Sulfate 2 gm/ Premix 50 mls @ 25 mls/hr IV Q6H [facility] Stop: 07/22/16 22:59 Last Admin: 07/22/16 20:18 Dose: 25 mls/hr Sodium Chloride (Normal Saline) 500 mls @ 500 mls/hr IV .BOLUS ONE Stop: 07/23/16 21:51 Last Admin: 07/23/16 21:00 Dose: 500 mls/hr Sodium Chloride (Normal Saline) 500 mls @ 500 mls/hr IV .BOLUS ONE Stop: 07/23/16 23:04 Last Admin: 07/23/16 22:07 Dose: 500 mls/hr Potassium Chloride 20 meq/ (Premix) 100 mls @ 50 mls/hr IV ONETIME ONE Stop: 07/24/16 10:59 Last Admin: 07/24/16 09:08 Dose: 50 mls/hr Sodium Chloride (Normal Saline) 1,000 mls @ 50 mls/hr IV ASDIRECTED [facility] Last Admin: 07/25/16 03:54 Dose: 50 mls/hr Albumin Human (Flexbumin 25%) 12.5 gm in 50 mls @ 25 mls/hr IV ONETIME ONE Stop: 07/24/16 17:29 Last Admin: 07/24/16 15:47 Dose: 25 mls/hr Insulin Human Regular (Novolin R) 5 unit IVPUSH ONETIME ONE PRN Reason: Protocol Stop: 07/21/16 22:30 Last Admin: 07/21/16 23:03 Dose: 5 units Leflunomide (Arava) 10 mg PO Q48H [facility] Last Admin: 07/22/16 04:29 Dose: Not Given Lidocaine/Epinephrine (Xylocaine 1% With Epinephrine 1:100,000) Confirm Administered Dose 50 ml .ROUTE .STK-MED ONE Stop: 07/23/16 06:56 Last Admin: 07/23/16 10:44 Dose: 4.5 ml Metronidazole (Metronidazole) 500 mg PO Q8H [facility] Last Admin: 07/25/16 05:52 Dose: 500 mg Midazolam HCl (Versed 1 Mg/Ml) Confirm Administered Dose 2 mg .ROUTE .STK-MED ONE Stop: 07/23/16 08:23 Potassium Chloride (Klor-Con M20) 40 meq PO ONETIME ONE Stop: 07/21/16 23:45 Last Admin: 07/22/16 00:33 Dose: 40 meq Potassium Chloride (Klor-Con M20) 40 meq PO ONETIME ONE Stop: 07/24/16 09:01 Last Admin: 07/24/16 09:15 Dose: 40 meq Prochlorperazine Edisylate (Compazine) 10 mg IVPUSH ONETIME ONE Stop: 07/21/16 21:14 Last Admin: 07/21/16 21:22 Dose: 10 mg Propofol (Diprivan 20 Ml) Confirm Administered Dose 200 mg .ROUTE .STK-MED ONE Stop: 07/23/16 08:23 Sodium Polystyrene Sulfonate (Kayexalate) 15 gm PO ONETIME ONE Stop: 07/21/16 22:30 Last Admin: 07/21/16 23:11 Dose: 15 gm Sodium Polystyrene Sulfonate (Kayexalate) 45 gm RECTAL NOW ONE Stop: 07/21/16 22:30 Last Admin: 07/21/16 23:26 Dose: Not Given - Exam Quality Assessment: No: supplemental oxygen General: alert, oriented, cooperative, no acute distress Neck: supple Lungs: Clear to auscultation, Normal respiratory effort, Decreased breath sounds (mild right lung base) Cardiovascular: Regular Rate, Regular Rhythm Abdomen: bowel sounds present, soft, no tenderness, no distension Extremities: no cyanosis, edema (some residual edema of both legs but much better compared to yesterday) Skin: warm, dry Psy/Mental Status: alert, normal affect - Problem List & Annotations (1) Clostridium difficile colitis SNOMED Code(s): 295793605 Code(s): A04.7 - ENTEROCOLITIS DUE TO CLOSTRIDIUM DIFFICILE Status: Acute Current Visit: Yes (2) Sepsis SNOMED Code(s): 50887223 Code(s): A41.9 - SEPSIS, UNSPECIFIED ORGANISM Status: Acute Current Visit : Yes Qualifiers: Sepsis type: sepsis due to unspecified organism Annotation/Comment:: Secondary to Clostridium difficile (3) Acute kidney injury SNOMED Code(s): 26644714 Code(s): N17.9 - ACUTE KIDNEY FAILURE, UNSPECIFIED Status: Acute Current Visit: Yes (4) Hypokalemia SNOMED Code(s): 91647822 Code(s): E87.6 - HYPOKALEMIA Status: Acute Current Visit: Yes (5) Pancreatic cancer SNOMED Code(s): 063959279 Code(s): C25.9 - MALIGNANT NEOPLASM OF PANCREAS, UNSPECIFIED Status: Chronic Current Visit: Yes Qualifiers: Pancreatic malignancy location: tail of pancreas Qualified Code(s): C25.2 - Malignant neoplasm of tail of pancreas Annotation/Comment:: Recurrent, suspect second primary pancreatic cancer - Problem List Review Problem List Initiated/Reviewed/Updated: Yes - My Orders Last 24 Hours: My Active Orders 07/24/16 17:00 Amylase/Lipase/Protease [Lyndsey LOVING 24,000 Units] 2 cap PO TIDMEALS 07/25/16 05:48 Heparin Sodium [Heparin Lock Flush 100 Units/ML Syringe] 500 units FLUSH ASDIRECTED PRN 07/25/16 09:45 Potassium Chloride [Klor-Con M20] 40 meq PO BIDMEALS 07/25/16 10:00 Vancomycin [Vancocin 250 MG/5 ML Soln] 125 mg PO QID 07/25/16 13:30 Remove Feldman Catheter [Urinary Catheter Removal] [RC] Per Unit Routine Convert IV to Saline Lock [OM.PC] Routine 07/26/16 05:00 BASIC METABOLIC PANEL,BMP [CHEM] Timed CBC W/O DIFF,HEMOGRAM [HEME] Timed (1) - Plan Plan:: Assessment and Plan - Clostridium difficile colitis with sepsis - diarrhea seems to be increasing despite use of metronidazole. Sepsis has resolved and white blood cell count has normalized. -stop metronidazole, start vancomycin -Probiotics twice daily -saline lock IV -Followup Blood cultures -Physical therapy to help with generalized weakness Acute kidney injury - secondary to sepsis, levels have normalized. -encourage by mouth intake -Labs in the morning Hypokalemia - Potassium level low this morning. Plan to replace potassium today and recheck labs tomorrow. -40 mEq of potassium twice daily -Repeat labs in the morning, continue replacement as indicated Difficult IV access - Rizvi catheter placed 07/23 and seems to be functioning well. -Rizvi catheter Recurrent pancreatic cancer - Patient with apparent second primary pancreatic cancer. She is receiving chemotherapy at this time with the [facility] and [facility] both contributing to the care plan. Last chemotherapy was a couple weeks ago. Patient will need to improve strength and nutrition before she can have additional chemotherapy. she had a portal vein stents placed at the [facility] earlier this week. This was done to help alleviate the ascites. She had a large volume paracentesis yesterday with significant improvement in her symptoms. She does have some drainage from the paracentesis site which is currently controlled using an ostomy bag. There is no evidence for bleeding. Maintenance issues - - DVT prophylaxis - Apixiban - GI prophylaxis - PPI - Nutrition - regular diet - Feldman catheter - removed yesterday Disposition - anticipate discharge to home versus [facility]p after the hospital stay Orlin Pappas M.D.
[2016-07-25] MEDS: Amitriptyline 25 MG Tab PO SCH (21:43)
[2016-07-25] MEDS: Acetaminophen/HYDROcodone 325-5 MG Tab PO PRN (23:26)
[2016-07-26] MEDS: Vancomycin 250 MG/5 ML ML Oral Solution PO SCH ×4 (06:22→21:21)
[2016-07-26] MEDS: Pantoprazole 40 MG Tab.CR PO SCH (07:30)
[2016-07-26] MEDS: Lactobacillus Rhamnosus GG (Probiotic) Cap PO SCH ×2 (08:57→21:22)
[2016-07-26] MEDS: Potassium Chloride 20 MEQ Tab.ER PO SCH ×2 (08:57→17:20)
[2016-07-26] MEDS: Amylase/Lipase/Protease 24,000 Unit Cap.CR PO SCH ×3 (08:57→17:20)
[2016-07-26] MEDS: Apixaban 2.5 MG Tab PO SCH ×2 (08:58→21:22)
[2016-07-26] MEDS: Furosemide 40 MG Tab PO SCH (08:58)
[2016-07-26] MEDS: Leflunomide 20 MG Tab PO SCH (08:58)
[2016-07-26] MEDS: predniSONE 10 MG Tab PO SCH (08:58)
[2016-07-26] MEDS: Metoprolol Tartrate 25 MG Tab PO SCH ×2 (08:59→21:22)
--- NOTE | 2016-07-26 12:38 | OR ---
DATE OF PROCEDURE: 07/24/2016 PREOPERATIVE DIAGNOSIS: Malignant ascites. POSTOPERATIVE DIAGNOSIS: Malignant ascites. PROCEDURE: Paracentesis removing 4,550 mL of serous fluid. ANESTHESIA: Lidocaine 1% local. INDICATION: This 70-year-old white female has pancreatic cancer with malignant ascites. A couple weeks ago, she underwent a paracentesis at the [facility]. She now has recurrent ascites. She is distended and uncomfortable, and request was made for paracentesis. I counseled her for this, and she gave her informed consent to proceed. DESCRIPTION OF PROCEDURE: The airconditioning drafting officer marked a good site for the paracentesis. This is in the left lower quadrant of her abdomen. The area was prepped and draped in the usual sterile fashion. Time out was held. Lidocaine 1% plain was infiltrated at the site of the planned paracentesis. The needle was introduced into the abdomen, aspirated, obtaining serous fluid, indicating this is indeed a good place for the procedure. A small skin incision was made, and then a catheter manufactured by [employer] was used. The needle and catheter were introduced into the abdomen. Once we obtained fluid, the catheter was advanced into the abdomen and the needle was removed. We then removed 4,550 mL of serous fluid, using the vacuum bottle technique. When no more fluid could be obtained, the catheter was removed and a sterile dressing was applied. She tolerated the procedure well. The fluid is discarded and is not sent for any analysis, as this has already been done at [facility]. Efrain Sierra MD /[id number] SAINA
--- NOTE | 2016-07-26 14:10 | PCM.PN ---
- General Info Date of Service: 07/26/16 - Review of Systems General: Reports: Weakness. Denies: Fever, Chills Pulmonary: Reports: no symptoms Cardiovascular: Reports: No Symptoms Gastrointestinal: Reports: Abdominal pain, Decreased appetite, Diarrhea. Denies : Difficulty swallowing, Nausea, Vomiting Systems Review Comment:: This patient is a 70-year-old woman with metastatic pancreatic cancer. She was admitted with abdominal pain and fever, after admission developed diarrhea and stool studies were positive for C. difficile. She is been treated with oral vancomycin and symptoms do seem to be slowly improving. - Patient Data Vitals - most recent: Last Vital Signs Temp 98.4 F 07/26/16 11:26 Pulse 98 07/26/16 11:26 Resp 18 07/26/16 11:26 BP 102/64 07/26/16 11:26 Pulse Ox 95 07/26/16 11:26 Weight - most recent: 142 lb 9.6 oz I&O - last 24 hours: Intake & Output 07/25/16 07/26/16 07/26/16 22:59 06:59 14:59 Intake Total 1460 680 Output Total 575 215 251 Balance 885 -215 429 Lab Results last 24 hrs: Laboratory Results - last 24 hr 07/26/16 07/26/16 Range/Units 05:00 05:00 WBC 9.4 (4.5-11.0) K/uL RBC 2.99 L (3.30-5.50) M/uL Hgb 10.6 L (12.0-15.0) g/dL Hct 31.8 L (36.0-48.0) % MCV 106 H (80-98) fL MCH 36 H (27-31) pg MCHC 33 (32-36) % Plt Count 52 L (150-400) K/uL Sodium 142 (140-148) mmol/L Potassium 4.1 (3.6-5.2) mmol/L Chloride 112 H (100-108) mmol/L Carbon Dioxide 26 (21-32) mmol/L Anion Gap 8.1 (5.0-14.0) mmol/L BUN 7 (7-18) mg/dL Creatinine 0.7 (0.6-1.0) mg/dL Est Cr Clr Drug Dosing 69.01 mL/min Estimated GFR (MDRD) > 60 (>60) Glucose 92 (74-106) mg/dL Calcium 6.8 L* (8.5-10.1) mg/dL Flavio Results last 24 hrs: Microbiology 07/22/16 01:25 Aerobic Blood Culture - Preliminary Blood - Venous NO GROWTH AFTER 4 DAYS Anaerobic Blood Culture - Preliminary NO GROWTH AFTER 4 DAYS 07/22/16 01:20 Aerobic Blood Culture - Preliminary Blood - Arm, Right NO GROWTH AFTER 4 DAYS Anaerobic Blood Culture - Preliminary NO GROWTH AFTER 4 DAYS Med Orders - Current: Current Medications Acetaminophen (Tylenol) 650 mg PO Q4H PRN PRN Reason: Pain (Mild 1-3)/fever Hydrocodone Bitart/Acetaminophen ([place] 325-5 Mg) 1 tab PO Q6H PRN PRN Reason: Pain Last Admin: 07/25/16 23:26 Dose: 1 tab Albuterol (Proventil Neb Soln) 2.5 mg NEB Q4H PRN PRN Reason: Shortness Of Breath/wheezing Amitriptyline HCl (Elavil) 25 mg PO BEDTIME [facility] Last Admin: 07/25/16 21:43 Dose: 25 mg Lipase/Protease/Amylase (Creon Dr 24,000 Units) 2 cap PO TIDMEALS [facility] Last Admin: 07/26/16 14:00 Dose: 2 cap Apixaban (Eliquis) 2.5 mg PO BID [facility] Last Admin: 07/26/16 08:58 Dose: 2.5 mg Calcium Carbonate/Glycine (Tums) 1,000 mg PO Q2H PRN PRN Reason: Indigestion Dimethicone/Zinc Oxide (Rash Relief-Zinc Oxide [facility]) 0 gm TOP ASDIRECTED PRN PRN Reason: Rash Furosemide (Lasix) 40 mg PO DAILY [facility] Last Admin: 07/26/16 08:58 Dose: 40 mg Heparin Sodium (Porcine) (Heparin Lock Flush 100 Units/Ml Syringe) 500 units FLUSH ASDIRECTED PRN PRN Reason: IV Use Last Admin: 07/25/16 15:57 Dose: 500 units Lactobacillus Rhamnosus (Culturelle) 2 cap PO BID [facility] Last Admin: 07/26/16 08:57 Dose: 2 cap Leflunomide (Arava) 10 mg PO Q48H [facility] Last Admin: 07/26/16 08:58 Dose: 10 mg Lorazepam (Ativan) 0.5 - 1 mg IVPUSH Q4H PRN PRN Reason: Nausea/Vomiting Metoprolol Tartrate (Lopressor) 12.5 mg PO BID [facility] Last Admin: 07/26/16 08:59 Dose: 12.5 mg Morphine Sulfate (Morphine) 2 - 4 mg IVPUSH Q2H PRN PRN Reason: Pain (severe 7-10) Last Admin: 07/24/16 13:33 Dose: 2 mg Ondansetron HCl (Zofran Odt) 4 mg PO Q6H PRN PRN Reason: Nausea able to take PO Ondansetron HCl (Zofran) 4 mg IV Q6H PRN PRN Reason: Nausea/Vomiting Last Admin: 07/25/16 15:51 Dose: 4 mg Pantoprazole Sodium (Protonix) 40 mg PO ACBREAKFAST [facility] Last Admin: 07/26/16 07:30 Dose: 40 mg Polyethylene Glycol (Miralax) 17 gm PO DAILY PRN PRN Reason: Constipation Potassium Chloride (Klor-Con M20) 40 meq PO BIDMEALS [facility] Last Admin: 07/26/16 08:57 Dose: 40 meq Prednisone (Prednisone) 10 mg PO DAILY [facility] Last Admin: 07/26/16 08:58 Dose: 10 mg Prochlorperazine Maleate (Compazine) 10 mg PO Q6H PRN PRN Reason: Nausea Sodium Chloride (Saline Flush) 10 ml FLUSH ASDIRECTED PRN PRN Reason: Keep Vein Open Last Admin: 07/21/16 23:13 Dose: 10 ml Vancomycin HCl (Vancocin 250 Mg/5 Ml Soln) 250 mg PO QID [facility] Last Admin: 07/26/16 10:40 Dose: 250 mg Discontinued Medications Albuterol (Proventil Neb Soln) 2.5 mg NEB ONETIME ONE Stop: 07/21/16 22:30 Last Admin: 07/21/16 22:58 Dose: 2.5 mg Lipase/Protease/Amylase (Creon Dr 12,000 Units) cap PO TID [facility] Lipase/Protease/Amylase (Creon Dr 12,000 Units) 4 cap PO TID [facility] Lipase/Protease/Amylase (Creon Dr 6,000 Units) 8 cap PO TIDMEALS [facility] Stop: 07/24/16 14:00 Last Admin: 07/24/16 13:34 Dose: Not Given Bupivacaine HCl (Marcaine 0.5%) Confirm Administered Dose 50 ml .ROUTE .STK-MED ONE Stop: 07/23/16 06:56 Last Admin: 07/23/16 10:44 Dose: 4.5 ml Calcium Gluconate (Calcium Gluconate) 1 gm IVPUSH ONETIME ONE Stop: 07/21/16 22:30 Last Admin: 07/21/16 23:06 Dose: 1 gm Dextrose/Water (Dextrose 50% In Water) 50 ml IVPUSH ONETIME ONE Stop: 07/21/16 22:30 Last Admin: 07/21/16 23:00 Dose: 50 ml Dextrose/Water (Dextrose 50% In Water) 50 ml IVPUSH ONETIME ONE Stop: 07/22/16 01:35 Last Admin: 07/22/16 02:11 Dose: 50 ml Fentanyl (Sublimaze) Confirm Administered Dose 100 mcg .ROUTE .STK-MED ONE Stop: 07/23/16 08:23 Furosemide (Lasix) 40 mg IVPUSH ONETIME ONE Stop: 07/24/16 08:46 Last Admin: 07/24/16 09:08 Dose: 40 mg Heparin Sodium (Porcine) (Heparin Lock Flush 100 Units/Ml Syringe) Confirm Administered Dose 1,500 units .ROUTE .STK-MED ONE Stop: 07/23/16 06:56 Last Admin: 07/23/16 10:45 Dose: 1,500 units Heparin Sodium (Porcine) (Heparin Lock Flush 100 Units/Ml Syringe) Confirm Administered Dose 500 units .ROUTE .STK-MED ONE Stop: 07/25/16 05:46 Last Admin: 07/25/16 05:55 Dose: 500 units Hydrocortisone Sodium Succinate (Solu-Cortef) 100 mg IVPUSH ONETIME ONE Stop: 07/22/16 01:05 Last Admin: 07/22/16 02:18 Dose: 100 mg Hydrocortisone Sodium Succinate (Solu-Cortef) Confirm Administered Dose 100 mg .ROUTE .STK-MED ONE Stop: 07/22/16 02:16 Last Admin: 07/22/16 02:55 Dose: Not Given Hydromorphone HCl (Dilaudid) 1 mg IVPUSH ONETIME ONE Stop: 07/21/16 21:12 Last Admin: 07/21/16 21:26 Dose: 1 mg Lactated Ringer's (Ringers, Lactated) 1,000 mls @ 500 mls/hr IV BOLUS ONE Stop: 07/21/16 23:10 Last Infusion: 07/21/16 22:21 Dose: 250 mls/hr Potassium Chloride 40 meq/ (Premix) 100 mls @ 25 mls/hr IV ONETIME ONE Stop: 07/22/16 03:43 Potassium Chloride 20 meq/ (Premix) 100 mls @ 50 mls/hr IV ONETIME ONE Stop: 07/22/16 02:06 Last Admin: 07/22/16 00:31 Dose: 50 mls/hr Lactated Ringer's (Ringers, Lactated) 1,000 mls @ 999 mls/hr IV ASDIRECTED [facility] Stop: 07/22/16 02:16 Last Admin: 07/22/16 02:57 Dose: 999 mls/hr Cefepime HCl 1 gm/ Sodium (Chloride) 50 mls @ 100 mls/hr IV Q8H [facility] Last Admin: 07/22/16 01:43 Dose: 100 mls/hr Sodium Chloride (Normal Saline) 1,000 mls @ 125 mls/hr IV ASDIRECTED [facility] Last Admin: 07/24/16 07:09 Dose: 125 mls/hr Ciprofloxacin/Dextrose 400 mg/ (Premix) 200 mls @ 200 mls/hr IV Q24H [facility] Last Admin: 07/23/16 02:03 Dose: 200 mls/hr Potassium Chloride 20 meq/ (Premix) 100 mls @ 50 mls/hr IV ONETIME ONE Stop: 07/22/16 04:59 Last Admin: 07/22/16 02:57 Dose: 50 mls/hr Potassium Chloride (Kcl 20 Meq In Water 100 Ml) Confirm Administered Dose 100 mls @ as directed .ROUTE .STK-MED ONE Stop: 07/22/16 02:54 Last Admin: 07/22/16 03:05 Dose: Not Given Cefepime HCl 1 gm/ Sodium (Chloride) 50 mls @ 100 mls/hr IV Q8H [facility] Last Admin: 07/23/16 02:01 Dose: 100 mls/hr Magnesium Sulfate 2 gm/ Premix 50 mls @ 25 mls/hr IV Q6H [facility] Stop: 07/22/16 22:59 Last Admin: 07/22/16 20:18 Dose: 25 mls/hr Sodium Chloride (Normal Saline) 500 mls @ 500 mls/hr IV .BOLUS ONE Stop: 07/23/16 21:51 Last Admin: 07/23/16 21:00 Dose: 500 mls/hr Sodium Chloride (Normal Saline) 500 mls @ 500 mls/hr IV .BOLUS ONE Stop: 07/23/16 23:04 Last Admin: 07/23/16 22:07 Dose: 500 mls/hr Potassium Chloride 20 meq/ (Premix) 100 mls @ 50 mls/hr IV ONETIME ONE Stop: 07/24/16 10:59 Last Admin: 07/24/16 09:08 Dose: 50 mls/hr Sodium Chloride (Normal Saline) 1,000 mls @ 50 mls/hr IV ASDIRECTED [facility] Last Admin: 07/25/16 03:54 Dose: 50 mls/hr Albumin Human (Flexbumin 25%) 12.5 gm in 50 mls @ 25 mls/hr IV ONETIME ONE Stop: 07/24/16 17:29 Last Admin: 07/24/16 15:47 Dose: 25 mls/hr Insulin Human Regular (Novolin R) 5 unit IVPUSH ONETIME ONE PRN Reason: Protocol Stop: 07/21/16 22:30 Last Admin: 07/21/16 23:03 Dose: 5 units Leflunomide (Arava) 10 mg PO Q48H [facility] Last Admin: 07/22/16 04:29 Dose: Not Given Lidocaine HCl (Xylocaine-Mpf 1%) 5 ml INJECT ONETIME ONE Stop: 07/26/16 13:46 Last Admin: 07/26/16 14:00 Dose: 5 ml Lidocaine/Epinephrine (Xylocaine 1% With Epinephrine 1:100,000) Confirm Administered Dose 50 ml .ROUTE .STK-MED ONE Stop: 07/23/16 06:56 Last Admin: 07/23/16 10:44 Dose: 4.5 ml Metronidazole (Metronidazole) 500 mg PO Q8H [facility] Last Admin: 07/25/16 05:52 Dose: 500 mg Midazolam HCl (Versed 1 Mg/Ml) Confirm Administered Dose 2 mg .ROUTE .STK-MED ONE Stop: 07/23/16 08:23 Potassium Chloride (Klor-Con M20) 40 meq PO ONETIME ONE Stop: 07/21/16 23:45 Last Admin: 07/22/16 00:33 Dose: 40 meq Potassium Chloride (Klor-Con M20) 40 meq PO ONETIME ONE Stop: 07/24/16 09:01 Last Admin: 07/24/16 09:15 Dose: 40 meq Prochlorperazine Edisylate (Compazine) 10 mg IVPUSH ONETIME ONE Stop: 07/21/16 21:14 Last Admin: 07/21/16 21:22 Dose: 10 mg Propofol (Diprivan 20 Ml) Confirm Administered Dose 200 mg .ROUTE .STK-MED ONE Stop: 07/23/16 08:23 Sodium Polystyrene Sulfonate (Kayexalate) 15 gm PO ONETIME ONE Stop: 07/21/16 22:30 Last Admin: 07/21/16 23:11 Dose: 15 gm Sodium Polystyrene Sulfonate (Kayexalate) 45 gm RECTAL NOW ONE Stop: 07/21/16 22:30 Last Admin: 07/21/16 23:26 Dose: Not Given Vancomycin HCl (Vancocin 250 Mg/5 Ml Soln) 125 mg PO QID [facility] Last Admin: 07/26/16 06:22 Dose: 125 mg - Exam General: alert, oriented, cooperative, mild distress Lungs: Clear to auscultation, Normal respiratory effort Cardiovascular: Regular Rate, Regular Rhythm Abdomen: bowel sounds present, soft, no distension, tenderness. No: rigidity, rebound, guarding Extremities: no edema Skin: warm, dry, intact - Problem List Review Problem List Initiated/Reviewed/Updated: Yes - My Orders Last 24 Hours: My Active Orders 07/26/16 10:00 Vancomycin [Vancocin 250 MG/5 ML Soln] 250 mg PO QID 07/26/16 14:05 CALCIUM IONIZED,ISTAT [POC] Routine 07/27/16 05:00 BASIC METABOLIC PANEL,BMP [CHEM] Timed - Plan Plan:: Assessment and Plan - Clostridium difficile colitis with sepsis - diarrhea has improved modestly over the past 24 hours, vital signs have been stable and she has remained afebrile. -Vancomycin 250 mg by mouth every 6 hours -Probiotics twice daily -saline lock IV -Followup Blood cultures -Physical therapy to help with generalized weakness Acute kidney injury - secondary to sepsis, levels have normalized. -encourage by mouth intake -Labs in the morning Hypokalemia - potassium level within normal range today -40 mEq of potassium twice daily -Repeat labs in the morning, continue replacement as indicated Difficult IV access - Rizvi catheter placed 07/23 and seems to be functioning well. -Rizvi catheter Recurrent pancreatic cancer - Patient with apparent second primary pancreatic cancer. She is receiving chemotherapy at this time with the [facility] and [facility] both contributing to the care plan. Last chemotherapy was a couple weeks ago. Patient will need to improve strength and nutrition before she can have additional chemotherapy. she had a portal vein stents placed at the [facility] earlier this week. This was done to help alleviate the ascites. She had a large volume paracentesis yesterday with significant improvement in her symptoms. She does have some drainage from the paracentesis site which is currently controlled using an ostomy bag. There is no evidence for bleeding. Maintenance issues - - DVT prophylaxis - Apixiban - GI prophylaxis - PPI - Nutrition - regular diet - Feldman catheter - removed yesterday Disposition - anticipate discharge to home versus long term after the hospital stay
[2016-07-26] MEDS ORDERED: Bacitracin Oint 28.35 GM Tube TOP PRN (16:11)
[2016-07-26] MEDS: Calcium Carbonate/Vitamin D3 1500 MG-400 Units Tab PO SCH ×2 (17:20→21:22)
[2016-07-26] MEDS: Acetaminophen/HYDROcodone 325-5 MG Tab PO PRN (17:28)
[2016-07-26] MEDS ORDERED: Calcium Gluconate 2 GM in Sodium Chloride 0.9% 100 ML IV ONE (17:30)
[2016-07-26] MEDS ORDERED: Bacitracin Oint 28.35 GM Tube TOP SCH (21:00)
[2016-07-26] MEDS: Amitriptyline 25 MG Tab PO SCH (21:22)
[2016-07-27] MEDS: Dimethicone 20%/Zinc Oxide 25% 56 GM Spray Bottle TOP PRN (04:41)
[2016-07-27] MEDS: Vancomycin 250 MG/5 ML ML Oral Solution PO SCH ×4 (05:45→21:27)
--- NOTE | 2016-07-27 07:47 | OR ---
DATE OF PROCEDURE: 07/26/2016 PREOPERATIVE DIAGNOSIS: Malignant ascites with draining peritoneal fluid from paracentesis site and Ean-Joe drain site. POSTPROCEDURE DIAGNOSIS: Malignant ascites with draining peritoneal fluid from paracentesis site and Ean-Joe drain site. PROCEDURE: Suture-ligation of peritoneal draining sites from paracentesis and Ean-Joe drain. ANESTHESIA: 1% plain lidocaine. INDICATION: This 70-year-old white female has malignant ascites from pancreatic cancer. She underwent a paracentesis two days ago. There is serous drainage coming from this site, so much that an ostomy bag is in place to catch the fluid. She also has a former Ean-Joe drain site on the right side, which also was draining and has a ostomy bag for the fluid. A request was made to close both of these sites. I counseled her for suture- ligation of these two areas including risks and alternatives, and she gave her informed consent to proceed. DESCRIPTION OF PROCEDURE: Attention was directed to the left lower quadrant paracentesis site first. Time out was held. The area was prepped and draped in the usual sterile fashion. Lidocaine 1% plain was infiltrated about the paracentesis site. A figure-of- eight stitch with 0-3 Prolene was used to close this opening. We left the stitch in place to see if there would be any drainage. Attention was then directed to the right upper quadrant site, where she has a Ean-Joe drain in the past. The area was prepped and draped in the usual sterile fashion. Lidocaine 1% plain was infiltrated at this site. A pursestring stitch of 0 Prolene was then used to close this site. They were both examined, and no drainage occurred from either site. Excess suture was excised and sterile dressings were applied. She tolerated the procedure well. Efrain Sierra MD /[id number] [facility]
[2016-07-27] MEDS: Pantoprazole 40 MG Tab.CR PO SCH (07:52)
[2016-07-27] MEDS: Amylase/Lipase/Protease 24,000 Unit Cap.CR PO SCH ×3 (07:59→18:05)
[2016-07-27] MEDS: Potassium Chloride 20 MEQ Tab.ER PO SCH ×2 (08:00→18:06)
[2016-07-27] MEDS: Calcium Carbonate/Vitamin D3 1500 MG-400 Units Tab PO SCH ×2 (09:35→21:26)
[2016-07-27] MEDS: Furosemide 40 MG Tab PO SCH (09:36)
[2016-07-27] MEDS: predniSONE 10 MG Tab PO SCH (09:36)
[2016-07-27] MEDS: Apixaban 2.5 MG Tab PO SCH ×2 (09:36→21:31)
[2016-07-27] MEDS: Lactobacillus Rhamnosus GG (Probiotic) Cap PO SCH ×2 (09:36→21:31)
[2016-07-27] MEDS: Metoprolol Tartrate 25 MG Tab PO SCH ×2 (09:41→21:30)
[2016-07-27] MEDS: Acetaminophen/HYDROcodone 325-5 MG Tab PO PRN ×3 (09:47→22:40)
[2016-07-27] MEDS: Ondansetron 4 MG Tab.DIS PO PRN (10:47)
[2016-07-27] MEDS: Morphine 2 MG/ML Syringe IVPUSH PRN ×2 (10:58→19:44)
[2016-07-27] MEDS: Sodium Chloride 0.9% 10 ML Syringe FLUSH PRN (10:59)
--- NOTE | 2016-07-27 11:59 | PCM.PN ---
- General Info Date of Service: 07/27/16 Functional Status: Reports: pain controlled, ambulating, urinating - Review of Systems General: Reports: Weakness. Denies: Fever, Chills Pulmonary: Reports: no symptoms Cardiovascular: Reports: No Symptoms Gastrointestinal: Reports: Diarrhea. Denies: Abdominal pain, Constipation, Decreased appetite, Difficulty swallowing, Nausea, Vomiting Systems Review Comment:: This patient has had further improvement over the past 24 hours, diarrhea has significantly improved but not totally resolved. She does have significant fluid retention and peripheral edema in both lower extremities, extending into the thighs. Appetite seems to be slowly improving, vital signs have been stable and she has remained afebrile. - Patient Data Vitals - most recent: Last Vital Signs Temp 95.6 F 07/27/16 09:38 Pulse 105 H 07/27/16 09:41 Resp 18 07/27/16 09:38 BP 137/86 07/27/16 09:41 Pulse Ox 98 07/27/16 07:45 Weight - most recent: 142 lb 9.6 oz I&O - last 24 hours: Intake & Output 07/26/16 07/27/16 07/27/16 22:59 06:59 14:59 Intake Total 700 240 540 Output Total 100 Balance 700 240 440 Lab Results last 24 hrs: Laboratory Results - last 24 hr 07/26/16 07/27/16 Range/Units 16:11 04:45 Sodium 141 (140-148) mmol/L Potassium 5.0 (3.6-5.2) mmol/L Chloride 110 H (100-108) mmol/L Carbon Dioxide 26 (21-32) mmol/L Anion Gap 10.0 (5.0-14.0) mmol/L BUN 6 L (7-18) mg/dL Creatinine 0.7 (0.6-1.0) mg/dL Est Cr Clr Drug Dosing 69.01 mL/min Estimated GFR (MDRD) > 60 (>60) Glucose 80 (74-106) mg/dL Calcium 7.2 L (8.5-10.1) mg/dL POC WB Ioniz Calcium 1.06 L (1.12-1.32) mmol/L Flavio Results last 24 hrs: Microbiology 07/22/16 01:25 Aerobic Blood Culture - Final Blood - Venous NO GROWTH AFTER 5 DAYS Anaerobic Blood Culture - Final NO GROWTH AFTER 5 DAYS 07/22/16 01:20 Aerobic Blood Culture - Final Blood - Arm, Right NO GROWTH AFTER 5 DAYS Anaerobic Blood Culture - Final NO GROWTH AFTER 5 DAYS Med Orders - Current: Current Medications Acetaminophen (Tylenol) 650 mg PO Q4H PRN PRN Reason: Pain (Mild 1-3)/fever Last Admin: 07/27/16 01:38 Dose: 650 mg Hydrocodone Bitart/Acetaminophen ([place] 325-5 Mg) 1 tab PO Q6H PRN PRN Reason: Pain Last Admin: 07/27/16 09:47 Dose: 1 tab Albuterol (Proventil Neb Soln) 2.5 mg NEB Q4H PRN PRN Reason: Shortness Of Breath/wheezing Amitriptyline HCl (Elavil) 25 mg PO BEDTIME [facility] Last Admin: 07/26/16 21:22 Dose: 25 mg Lipase/Protease/Amylase (Creon Dr 24,000 Units) 2 cap PO TIDMEALS [facility] Last Admin: 07/27/16 11:50 Dose: 2 cap Apixaban (Eliquis) 2.5 mg PO BID [facility] Last Admin: 07/27/16 09:36 Dose: 2.5 mg Bacitracin (Bacitracin Oint) 0 gm TOP TID PRN PRN Reason: Wound Care Last Admin: 07/26/16 17:16 Dose: 1 applic Calcium Carbonate (Caltrate 600+D 1500 Mg-400 Units) 2 tab PO BID [facility] Last Admin: 07/27/16 09:35 Dose: 2 tab Calcium Carbonate/Glycine (Tums) 1,000 mg PO Q2H PRN PRN Reason: Indigestion Dimethicone/Zinc Oxide (Rash Relief-Zinc Oxide [place]) 0 gm TOP ASDIRECTED PRN PRN Reason: Rash Last Admin: 07/27/16 04:41 Dose: 1 applic Furosemide (Lasix) 40 mg IVPUSH NOW ONE Stop: 07/27/16 15:01 Heparin Sodium (Porcine) (Heparin Lock Flush 100 Units/Ml Syringe) 500 units FLUSH ASDIRECTED PRN PRN Reason: IV Use Last Admin: 07/27/16 10:59 Dose: 500 units Lactobacillus Rhamnosus (Culturelle) 2 cap PO BID [facility] Last Admin: 07/27/16 09:36 Dose: 2 cap Leflunomide (Arava) 10 mg PO Q48H [facility] Last Admin: 07/26/16 08:58 Dose: 10 mg Lorazepam (Ativan) 0.5 - 1 mg IVPUSH Q4H PRN PRN Reason: Nausea/Vomiting Metoprolol Tartrate (Lopressor) 12.5 mg PO BID [facility] Last Admin: 07/27/16 09:41 Dose: 12.5 mg Morphine Sulfate (Morphine) 2 - 4 mg IVPUSH Q2H PRN PRN Reason: Pain (severe 7-10) Last Admin: 07/27/16 10:58 Dose: 2 mg Ondansetron HCl (Zofran Odt) 4 mg PO Q6H PRN PRN Reason: Nausea able to take PO Last Admin: 07/27/16 10:47 Dose: 4 mg Ondansetron HCl (Zofran) 4 mg IV Q6H PRN PRN Reason: Nausea/Vomiting Last Admin: 07/25/16 15:51 Dose: 4 mg Pantoprazole Sodium (Protonix) 40 mg PO ACBREAKFAST [facility] Last Admin: 07/27/16 07:52 Dose: 40 mg Polyethylene Glycol (Miralax) 17 gm PO DAILY PRN PRN Reason: Constipation Potassium Chloride (Klor-Con M20) 40 meq PO BIDMEALS [facility] Last Admin: 07/27/16 08:00 Dose: 40 meq Prednisone (Prednisone) 10 mg PO DAILY [facility] Last Admin: 07/27/16 09:36 Dose: 10 mg Prochlorperazine Maleate (Compazine) 10 mg PO Q6H PRN PRN Reason: Nausea Sodium Chloride (Saline Flush) 10 ml FLUSH ASDIRECTED PRN PRN Reason: Keep Vein Open Last Admin: 07/27/16 10:59 Dose: 10 ml Vancomycin HCl (Vancocin 250 Mg/5 Ml Soln) 250 mg PO QID [facility] Last Admin: 07/27/16 09:37 Dose: 250 mg Discontinued Medications Albuterol (Proventil Neb Soln) 2.5 mg NEB ONETIME ONE Stop: 07/21/16 22:30 Last Admin: 07/21/16 22:58 Dose: 2.5 mg Lipase/Protease/Amylase (Lyndsey [place] 12,000 Units) cap PO TID [facility] Lipase/Protease/Amylase (Lyndsey Campo 12,000 Units) 4 cap PO TID [facility] Lipase/Protease/Amylase (Lyndsey Campo 6,000 Units) 8 cap PO TIDMEALS [facility] Stop: 07/24/16 14:00 Last Admin: 07/24/16 13:34 Dose: Not Given Bacitracin (Bacitracin Oint) 1 gm TOP TID [facility] Bupivacaine HCl (Marcaine 0.5%) Confirm Administered Dose 50 ml .ROUTE .STK-MED ONE Stop: 07/23/16 06:56 Last Admin: 07/23/16 10:44 Dose: 4.5 ml Calcium Gluconate (Calcium Gluconate) 1 gm IVPUSH ONETIME ONE Stop: 07/21/16 22:30 Last Admin: 07/21/16 23:06 Dose: 1 gm Dextrose/Water (Dextrose 50% In Water) 50 ml IVPUSH ONETIME ONE Stop: 07/21/16 22:30 Last Admin: 07/21/16 23:00 Dose: 50 ml Dextrose/Water (Dextrose 50% In Water) 50 ml IVPUSH ONETIME ONE Stop: 07/22/16 01:35 Last Admin: 07/22/16 02:11 Dose: 50 ml Fentanyl (Sublimaze) Confirm Administered Dose 100 mcg .ROUTE .STK-MED ONE Stop: 07/23/16 08:23 Furosemide (Lasix) 40 mg PO DAILY [facility] Last Admin: 07/27/16 09:36 Dose: 40 mg Furosemide (Lasix) 40 mg IVPUSH ONETIME ONE Stop: 07/24/16 08:46 Last Admin: 07/24/16 09:08 Dose: 40 mg Heparin Sodium (Porcine) (Heparin Lock Flush 100 Units/Ml Syringe) Confirm Administered Dose 1,500 units .ROUTE .STK-MED ONE Stop: 07/23/16 06:56 Last Admin: 07/23/16 10:45 Dose: 1,500 units Heparin Sodium (Porcine) (Heparin Lock Flush 100 Units/Ml Syringe) Confirm Administered Dose 500 units .ROUTE .STK-MED ONE Stop: 07/25/16 05:46 Last Admin: 07/25/16 05:55 Dose: 500 units Hydrocortisone Sodium Succinate (Solu-Cortef) 100 mg IVPUSH ONETIME ONE Stop: 07/22/16 01:05 Last Admin: 07/22/16 02:18 Dose: 100 mg Hydrocortisone Sodium Succinate (Solu-Cortef) Confirm Administered Dose 100 mg .ROUTE .STK-MED ONE Stop: 07/22/16 02:16 Last Admin: 07/22/16 02:55 Dose: Not Given Hydromorphone HCl (Dilaudid) 1 mg IVPUSH ONETIME ONE Stop: 07/21/16 21:12 Last Admin: 07/21/16 21:26 Dose: 1 mg Lactated Ringer's (Ringers, Lactated) 1,000 mls @ 500 mls/hr IV BOLUS ONE Stop: 07/21/16 23:10 Last Infusion: 07/21/16 22:21 Dose: 250 mls/hr Potassium Chloride 40 meq/ (Premix) 100 mls @ 25 mls/hr IV ONETIME ONE Stop: 07/22/16 03:43 Potassium Chloride 20 meq/ (Premix) 100 mls @ 50 mls/hr IV ONETIME ONE Stop: 07/22/16 02:06 Last Admin: 07/22/16 00:31 Dose: 50 mls/hr Lactated Ringer's (Ringers, Lactated) 1,000 mls @ 999 mls/hr IV ASDIRECTED [facility] Stop: 07/22/16 02:16 Last Admin: 07/22/16 02:57 Dose: 999 mls/hr Cefepime HCl 1 gm/ Sodium (Chloride) 50 mls @ 100 mls/hr IV Q8H [facility] Last Admin: 07/22/16 01:43 Dose: 100 mls/hr Sodium Chloride (Normal Saline) 1,000 mls @ 125 mls/hr IV ASDIRECTED [facility] Last Admin: 07/24/16 07:09 Dose: 125 mls/hr Ciprofloxacin/Dextrose 400 mg/ (Premix) 200 mls @ 200 mls/hr IV Q24H [facility] Last Admin: 07/23/16 02:03 Dose: 200 mls/hr Potassium Chloride 20 meq/ (Premix) 100 mls @ 50 mls/hr IV ONETIME ONE Stop: 07/22/16 04:59 Last Admin: 07/22/16 02:57 Dose: 50 mls/hr Potassium Chloride (Kcl 20 Meq In Water 100 Ml) Confirm Administered Dose 100 mls @ as directed .ROUTE .STK-MED ONE Stop: 07/22/16 02:54 Last Admin: 07/22/16 03:05 Dose: Not Given Cefepime HCl 1 gm/ Sodium (Chloride) 50 mls @ 100 mls/hr IV Q8H [facility] Last Admin: 07/23/16 02:01 Dose: 100 mls/hr Magnesium Sulfate 2 gm/ Premix 50 mls @ 25 mls/hr IV Q6H [facility] Stop: 07/22/16 22:59 Last Admin: 07/22/16 20:18 Dose: 25 mls/hr Sodium Chloride (Normal Saline) 500 mls @ 500 mls/hr IV .BOLUS ONE Stop: 07/23/16 21:51 Last Admin: 07/23/16 21:00 Dose: 500 mls/hr Sodium Chloride (Normal Saline) 500 mls @ 500 mls/hr IV .BOLUS ONE Stop: 07/23/16 23:04 Last Admin: 07/23/16 22:07 Dose: 500 mls/hr Potassium Chloride 20 meq/ (Premix) 100 mls @ 50 mls/hr IV ONETIME ONE Stop: 07/24/16 10:59 Last Admin: 07/24/16 09:08 Dose: 50 mls/hr Sodium Chloride (Normal Saline) 1,000 mls @ 50 mls/hr IV ASDIRECTED [facility] Last Admin: 07/25/16 03:54 Dose: 50 mls/hr Albumin Human (Flexbumin 25%) 12.5 gm in 50 mls @ 25 mls/hr IV ONETIME ONE Stop: 07/24/16 17:29 Last Admin: 07/24/16 15:47 Dose: 25 mls/hr Calcium Gluconate 2 gm/ Sodium (Chloride) 120 mls @ 100 mls/hr IV ONETIME ONE Stop: 07/26/16 18:41 Last Admin: 07/26/16 17:10 Dose: 100 mls/hr Insulin Human Regular (Novolin R) 5 unit IVPUSH ONETIME ONE PRN Reason: Protocol Stop: 07/21/16 22:30 Last Admin: 07/21/16 23:03 Dose: 5 units Leflunomide (Arava) 10 mg PO Q48H [facility] Last Admin: 07/22/16 04:29 Dose: Not Given Lidocaine HCl (Xylocaine-Mpf 1%) 5 ml INJECT ONETIME ONE Stop: 07/26/16 13:46 Last Admin: 07/26/16 14:00 Dose: 5 ml Lidocaine HCl (Xylocaine-Mpf 1%) Confirm Administered Dose 5 ml .ROUTE .STK-MED ONE Stop: 07/26/16 14:19 Last Admin: 07/26/16 14:43 Dose: 5 ml Lidocaine HCl (Xylocaine-Mpf 1%) 5 ml INJECT ONETIME ONE Stop: 07/26/16 14:19 Last Admin: 07/26/16 17:10 Dose: Not Given Lidocaine/Epinephrine (Xylocaine 1% With Epinephrine 1:100,000) Confirm Administered Dose 50 ml .ROUTE .STK-MED ONE Stop: 07/23/16 06:56 Last Admin: 07/23/16 10:44 Dose: 4.5 ml Metronidazole (Metronidazole) 500 mg PO Q8H [facility] Last Admin: 07/25/16 05:52 Dose: 500 mg Midazolam HCl (Versed 1 Mg/Ml) Confirm Administered Dose 2 mg .ROUTE .STK-MED ONE Stop: 07/23/16 08:23 Potassium Chloride (Klor-Con M20) 40 meq PO ONETIME ONE Stop: 07/21/16 23:45 Last Admin: 07/22/16 00:33 Dose: 40 meq Potassium Chloride (Klor-Con M20) 40 meq PO ONETIME ONE Stop: 07/24/16 09:01 Last Admin: 07/24/16 09:15 Dose: 40 meq Prochlorperazine Edisylate (Compazine) 10 mg IVPUSH ONETIME ONE Stop: 07/21/16 21:14 Last Admin: 07/21/16 21:22 Dose: 10 mg Propofol (Diprivan 20 Ml) Confirm Administered Dose 200 mg .ROUTE .STK-MED ONE Stop: 07/23/16 08:23 Sodium Polystyrene Sulfonate (Kayexalate) 15 gm PO ONETIME ONE Stop: 07/21/16 22:30 Last Admin: 07/21/16 23:11 Dose: 15 gm Sodium Polystyrene Sulfonate (Kayexalate) 45 gm RECTAL NOW ONE Stop: 07/21/16 22:30 Last Admin: 07/21/16 23:26 Dose: Not Given Vancomycin HCl (Vancocin 250 Mg/5 Ml Soln) 125 mg PO QID [facility] Last Admin: 07/26/16 06:22 Dose: 125 mg - Exam Quality Assessment: DVT prophylaxis General: alert, oriented, cooperative, no acute distress Lungs: Clear to auscultation, Normal respiratory effort Cardiovascular: Regular Rate, Regular Rhythm, No Murmurs Abdomen: bowel sounds present, soft, no tenderness, no distension Extremities: edema Skin: warm, dry, intact - Problem List Review Problem List Initiated/Reviewed/Updated: Yes - My Orders Last 24 Hours: My Active Orders 07/26/16 16:11 Bacitracin [Bacitracin Oint] 0 gm TOP TID PRN 07/26/16 16:45 Calcium Carbonate/Vitamin D3 [Caltrate 600+D 1500 MG-400 Units] 2 tab PO BID 07/27/16 15:00 Furosemide [Lasix] 40 mg IVPUSH NOW ONE 07/28/16 05:00 BASIC METABOLIC PANEL,BMP [CHEM] Timed - Plan Plan:: Assessment and Plan - Clostridium difficile colitis with sepsis - improvement in diarrhea over the past 24 hours, now relatively infrequent -Vancomycin 250 mg by mouth every 6 hours -Probiotics twice daily -saline lock IV -Followup Blood cultures -Physical therapy to help with generalized weakness Fluid overload-significant peripheral edema both lower extremities extending up into the thighs -Lasix 40 milligrams IV this afternoon -Reassess in a.m. Acute kidney injury - secondary to sepsis, levels have normalized. -encourage by mouth intake -Labs in the morning Hypokalemia - potassium level within normal range today -40 mEq of potassium twice daily -Repeat labs in the morning, continue replacement as indicated Difficult IV access - Rizvi catheter placed 07/23 and seems to be functioning well. -Rizvi catheter Recurrent pancreatic cancer - Patient with apparent second primary pancreatic cancer. She is receiving chemotherapy at this time with the [facility] and [facility] both contributing to the care plan. Last chemotherapy was a couple weeks ago. Patient will need to improve strength and nutrition before she can have additional chemotherapy. she had a portal vein stents placed at the [facility] earlier this week. This was done to help alleviate the ascites. She had a large volume paracentesis yesterday with significant improvement in her symptoms. She does have some drainage from the paracentesis site which is currently controlled using an ostomy bag. There is no evidence for bleeding. Maintenance issues - - DVT prophylaxis - Apixiban - GI prophylaxis - PPI - Nutrition - regular diet - Feldman catheter - removed yesterday Disposition - anticipate discharge to home versus group home after the hospital stay
[2016-07-27] MEDS ORDERED: Furosemide 40 MG/4 ML VIAL IVPUSH ONE (15:00)
--- NOTE | 2016-07-27 19:43 | OR ---
DATE OF PROCEDURE: 07/23/2016 PREOPERATIVE DIAGNOSIS: Inadequate peripheral venous access. POSTOPERATIVE DIAGNOSIS: Inadequate peripheral venous access. PROCEDURE: Insertion of double-lumen Rizvi catheter via left internal jugular vein approach ([id number]). ANESTHESIA: Local plus IV sedation. INDICATION FOR PROCEDURE: This is a 70-year-old with multiple medical problems including pancreatic carcinoma and Clostridium difficile infection, who at this point has inadequate peripheral venous access to allow adequate management of her case. Given this, a Rizvi catheter will be planned. Potential risks including bleeding, infection, injury to vasculature and pneumothorax during the procedure were reviewed and the patient wishes to proceed. DETAILS OF PROCEDURE: The patient was taken to the operating room and placed in a supine position. IV sedation was administered, after which the upper chest and neck areas were prepped and draped. The left subclavian area was then anesthetized with 1% lidocaine mixed with Marcaine. Multiple attempts to cannulate in the subclavian vein were unsuccessful. Given this, decision was made to go up to the left internal jugular vein. This was visualized with an ultrasound in the medial supraclavicular area. Some local was injected in the skin at that level and guidewire was then used to enter the jugular vein. Through this, a guidewire was then passed from there through the innominate vein and superior vena cava and into the right atrium. Just below the clavicle, the skin was anesthetized from that point up to the puncture site and the jugular vein. Stab wounds at both sites were then made, and the Rzivi catheter was then tunneled between that point from roughly a handsbreadth below the clavicle up to the incision where the jugular vein. Catheter was then cut such that the tip would lie within the superior vena cava right atrial junction. Over the introduction of peel-away catheter, the Rizvi catheter was placed without difficulty. Good in and outflow was noted. The ports were flushed with heparinized saline. The original puncture site was closed with 4-0 Vicryl subcuticular stitch and Steri-Strips and the Rizvi catheter sutured skin with some 3-0 nylon stitch. There were no other complications. The patient was taken to the recovery room in satisfactory condition. Ian Gar MD /[id number]
[2016-07-27] MEDS: Amitriptyline 25 MG Tab PO SCH (21:33)
[2016-07-28] MEDS: Acetaminophen/HYDROcodone 325-5 MG Tab PO PRN ×2 (04:46→21:14)
[2016-07-28] MEDS: Vancomycin 250 MG/5 ML ML Oral Solution PO SCH ×4 (07:26→21:19)
[2016-07-28] MEDS: Potassium Chloride 20 MEQ Tab.ER PO SCH ×2 (07:43→17:33)
[2016-07-28] MEDS: Amylase/Lipase/Protease 24,000 Unit Cap.CR PO SCH ×3 (07:43→17:32)
[2016-07-28] MEDS: Pantoprazole 40 MG Tab.CR PO SCH (07:43)
[2016-07-28] MEDS: Metoprolol Tartrate 25 MG Tab PO SCH ×2 (09:53→21:17)
[2016-07-28] MEDS: Calcium Carbonate/Vitamin D3 1500 MG-400 Units Tab PO SCH ×2 (09:53→21:16)
[2016-07-28] MEDS: predniSONE 10 MG Tab PO SCH (09:53)
[2016-07-28] MEDS: Leflunomide 20 MG Tab PO SCH (09:54)
[2016-07-28] MEDS: Apixaban 2.5 MG Tab PO SCH ×2 (09:54→21:15)
[2016-07-28] MEDS: Lactobacillus Rhamnosus GG (Probiotic) Cap PO SCH ×2 (09:54→21:16)
--- NOTE | 2016-07-28 12:46 | PCM.PN ---
- General Info Date of Service: 07/28/16 Functional Status: Reports: pain controlled - Review of Systems General: Reports: Weakness. Denies: Fever, Chills Pulmonary: Reports: no symptoms Cardiovascular: Reports: No Symptoms Gastrointestinal: Reports: Diarrhea. Denies: Abdominal pain, Nausea, Vomiting Systems Review Comment:: This patient has had a good diuresis with decrease in peripheral edema. Diarrhea continues to improve but has not totally resolved. Appetite has been better and overall energy level significantly improved from admission. Vital signs have been stable and she has remained afebrile. - Patient Data Vitals - most recent: Last Vital Signs Temp 98.1 F 07/28/16 11:20 Pulse 101 H 07/28/16 11:20 Resp 16 07/28/16 11:20 BP 87/53 L 07/28/16 11:20 Pulse Ox 91 L 07/28/16 11:20 Weight - most recent: 142 lb 9.6 oz I&O - last 24 hours: Intake & Output 07/27/16 07/28/16 07/28/16 22:59 06:59 14:59 Intake Total 720 360 Output Total 0 275 Balance 0 720 85 Lab Results last 24 hrs: Laboratory Results - last 24 hr 07/28/16 Range/Units 04:20 Sodium 138 L (140-148) mmol/L Potassium 5.2 (3.6-5.2) mmol/L Chloride 106 (100-108) mmol/L Carbon Dioxide 27 (21-32) mmol/L Anion Gap 10.2 (5.0-14.0) mmol/L BUN 6 L (7-18) mg/dL Creatinine 0.7 (0.6-1.0) mg/dL Est Cr Clr Drug Dosing 69.01 mL/min Estimated GFR (MDRD) > 60 (>60) Glucose 78 (74-106) mg/dL Calcium 7.2 L (8.5-10.1) mg/dL Med Orders - Current: Current Medications Acetaminophen (Tylenol) 650 mg PO Q4H PRN PRN Reason: Pain (Mild 1-3)/fever Last Admin: 07/27/16 01:38 Dose: 650 mg Hydrocodone Bitart/Acetaminophen ([place] 325-5 Mg) 1 tab PO Q6H PRN PRN Reason: Pain Last Admin: 07/28/16 04:46 Dose: 1 tab Albuterol (Proventil Neb Soln) 2.5 mg NEB Q4H PRN PRN Reason: Shortness Of Breath/wheezing Amitriptyline HCl (Elavil) 25 mg PO BEDTIME [facility] Last Admin: 07/27/16 21:33 Dose: 25 mg Lipase/Protease/Amylase (Creon Dr 24,000 Units) 2 cap PO TIDMEALS [facility] Last Admin: 07/28/16 12:23 Dose: 2 cap Apixaban (Eliquis) 2.5 mg PO BID [facility] Last Admin: 07/28/16 09:54 Dose: 2.5 mg Bacitracin (Bacitracin Oint) 0 gm TOP TID PRN PRN Reason: Wound Care Last Admin: 07/26/16 17:16 Dose: 1 applic Calcium Carbonate (Caltrate 600+D 1500 Mg-400 Units) 2 tab PO BID [facility] Last Admin: 07/28/16 09:53 Dose: 2 tab Calcium Carbonate/Glycine (Tums) 1,000 mg PO Q2H PRN PRN Reason: Indigestion Dimethicone/Zinc Oxide (Rash Relief-Zinc Oxide [place]) 0 gm TOP ASDIRECTED PRN PRN Reason: Rash Last Admin: 07/27/16 04:41 Dose: 1 applic Furosemide (Lasix) 40 mg IVPUSH NOW ONE Stop: 07/28/16 12:28 Furosemide (Lasix) 40 mg IVPUSH NOW ONE Stop: 07/29/16 08:01 Heparin Sodium (Porcine) (Heparin Lock Flush 100 Units/Ml Syringe) 500 units FLUSH ASDIRECTED PRN PRN Reason: IV Use Last Admin: 07/28/16 04:42 Dose: 500 units Lactobacillus Rhamnosus (Culturelle) 2 cap PO BID [facility] Last Admin: 07/28/16 09:54 Dose: 2 cap Leflunomide (Arava) 10 mg PO Q48H [facility] Last Admin: 07/28/16 09:54 Dose: 10 mg Lorazepam (Ativan) 0.5 - 1 mg IVPUSH Q4H PRN PRN Reason: Nausea/Vomiting Metoprolol Tartrate (Lopressor) 12.5 mg PO BID [facility] Last Admin: 07/28/16 09:53 Dose: 12.5 mg Morphine Sulfate (Morphine) 2 - 4 mg IVPUSH Q2H PRN PRN Reason: Pain (severe 7-10) Last Admin: 07/27/16 19:44 Dose: 2 mg Ondansetron HCl (Zofran Odt) 4 mg PO Q6H PRN PRN Reason: Nausea able to take PO Last Admin: 07/27/16 10:47 Dose: 4 mg Ondansetron HCl (Zofran) 4 mg IV Q6H PRN PRN Reason: Nausea/Vomiting Last Admin: 07/25/16 15:51 Dose: 4 mg Pantoprazole Sodium (Protonix) 40 mg PO ACBREAKFAST [facility] Last Admin: 07/28/16 07:43 Dose: 40 mg Polyethylene Glycol (Miralax) 17 gm PO DAILY PRN PRN Reason: Constipation Potassium Chloride (Klor-Con M20) 40 meq PO BIDMEALS [facility] Last Admin: 07/28/16 07:43 Dose: 40 meq Prednisone (Prednisone) 10 mg PO DAILY [facility] Last Admin: 07/28/16 09:53 Dose: 10 mg Prochlorperazine Maleate (Compazine) 10 mg PO Q6H PRN PRN Reason: Nausea Sodium Chloride (Saline Flush) 10 ml FLUSH ASDIRECTED PRN PRN Reason: Keep Vein Open Last Admin: 07/27/16 10:59 Dose: 10 ml Vancomycin HCl (Vancocin 250 Mg/5 Ml Soln) 250 mg PO QID [facility] Last Admin: 07/28/16 10:01 Dose: 250 mg Discontinued Medications Albuterol (Proventil Neb Soln) 2.5 mg NEB ONETIME ONE Stop: 07/21/16 22:30 Last Admin: 07/21/16 22:58 Dose: 2.5 mg Lipase/Protease/Amylase (Creon Dr 12,000 Units) cap PO TID [facility] Lipase/Protease/Amylase (Creon Dr 12,000 Units) 4 cap PO TID [facility] Lipase/Protease/Amylase (Creon Dr 6,000 Units) 8 cap PO TIDMEALS [facility] Stop: 07/24/16 14:00 Last Admin: 07/24/16 13:34 Dose: Not Given Bacitracin (Bacitracin Oint) 1 gm TOP TID [facility] Bupivacaine HCl (Marcaine 0.5%) Confirm Administered Dose 50 ml .ROUTE .STK-MED ONE Stop: 07/23/16 06:56 Last Admin: 07/23/16 10:44 Dose: 4.5 ml Calcium Gluconate (Calcium Gluconate) 1 gm IVPUSH ONETIME ONE Stop: 07/21/16 22:30 Last Admin: 07/21/16 23:06 Dose: 1 gm Dextrose/Water (Dextrose 50% In Water) 50 ml IVPUSH ONETIME ONE Stop: 07/21/16 22:30 Last Admin: 07/21/16 23:00 Dose: 50 ml Dextrose/Water (Dextrose 50% In Water) 50 ml IVPUSH ONETIME ONE Stop: 07/22/16 01:35 Last Admin: 07/22/16 02:11 Dose: 50 ml Fentanyl (Sublimaze) Confirm Administered Dose 100 mcg .ROUTE .STK-MED ONE Stop: 07/23/16 08:23 Furosemide (Lasix) 40 mg PO DAILY [facility] Last Admin: 07/27/16 09:36 Dose: 40 mg Furosemide (Lasix) 40 mg IVPUSH ONETIME ONE Stop: 07/24/16 08:46 Last Admin: 07/24/16 09:08 Dose: 40 mg Furosemide (Lasix) 40 mg IVPUSH NOW ONE Stop: 07/27/16 15:01 Last Admin: 07/27/16 14:37 Dose: 40 mg Heparin Sodium (Porcine) (Heparin Lock Flush 100 Units/Ml Syringe) Confirm Administered Dose 1,500 units .ROUTE .STK-MED ONE Stop: 07/23/16 06:56 Last Admin: 07/23/16 10:45 Dose: 1,500 units Heparin Sodium (Porcine) (Heparin Lock Flush 100 Units/Ml Syringe) Confirm Administered Dose 500 units .ROUTE .STK-MED ONE Stop: 07/25/16 05:46 Last Admin: 07/25/16 05:55 Dose: 500 units Hydrocortisone Sodium Succinate (Solu-Cortef) 100 mg IVPUSH ONETIME ONE Stop: 07/22/16 01:05 Last Admin: 07/22/16 02:18 Dose: 100 mg Hydrocortisone Sodium Succinate (Solu-Cortef) Confirm Administered Dose 100 mg .ROUTE .STK-MED ONE Stop: 07/22/16 02:16 Last Admin: 07/22/16 02:55 Dose: Not Given Hydromorphone HCl (Dilaudid) 1 mg IVPUSH ONETIME ONE Stop: 07/21/16 21:12 Last Admin: 07/21/16 21:26 Dose: 1 mg Lactated Ringer's (Ringers, Lactated) 1,000 mls @ 500 mls/hr IV BOLUS ONE Stop: 07/21/16 23:10 Last Infusion: 07/21/16 22:21 Dose: 250 mls/hr Potassium Chloride 40 meq/ (Premix) 100 mls @ 25 mls/hr IV ONETIME ONE Stop: 07/22/16 03:43 Potassium Chloride 20 meq/ (Premix) 100 mls @ 50 mls/hr IV ONETIME ONE Stop: 07/22/16 02:06 Last Admin: 07/22/16 00:31 Dose: 50 mls/hr Lactated Ringer's (Ringers, Lactated) 1,000 mls @ 999 mls/hr IV ASDIRECTED [facility] Stop: 07/22/16 02:16 Last Admin: 07/22/16 02:57 Dose: 999 mls/hr Cefepime HCl 1 gm/ Sodium (Chloride) 50 mls @ 100 mls/hr IV Q8H [facility] Last Admin: 07/22/16 01:43 Dose: 100 mls/hr Sodium Chloride (Normal Saline) 1,000 mls @ 125 mls/hr IV ASDIRECTED [facility] Last Admin: 07/24/16 07:09 Dose: 125 mls/hr Ciprofloxacin/Dextrose 400 mg/ (Premix) 200 mls @ 200 mls/hr IV Q24H [facility] Last Admin: 07/23/16 02:03 Dose: 200 mls/hr Potassium Chloride 20 meq/ (Premix) 100 mls @ 50 mls/hr IV ONETIME ONE Stop: 07/22/16 04:59 Last Admin: 07/22/16 02:57 Dose: 50 mls/hr Potassium Chloride (Kcl 20 Meq In Water 100 Ml) Confirm Administered Dose 100 mls @ as directed .ROUTE .STK-MED ONE Stop: 07/22/16 02:54 Last Admin: 07/22/16 03:05 Dose: Not Given Cefepime HCl 1 gm/ Sodium (Chloride) 50 mls @ 100 mls/hr IV Q8H [facility] Last Admin: 07/23/16 02:01 Dose: 100 mls/hr Magnesium Sulfate 2 gm/ Premix 50 mls @ 25 mls/hr IV Q6H [facility] Stop: 07/22/16 22:59 Last Admin: 07/22/16 20:18 Dose: 25 mls/hr Sodium Chloride (Normal Saline) 500 mls @ 500 mls/hr IV .BOLUS ONE Stop: 07/23/16 21:51 Last Admin: 07/23/16 21:00 Dose: 500 mls/hr Sodium Chloride (Normal Saline) 500 mls @ 500 mls/hr IV .BOLUS ONE Stop: 07/23/16 23:04 Last Admin: 07/23/16 22:07 Dose: 500 mls/hr Potassium Chloride 20 meq/ (Premix) 100 mls @ 50 mls/hr IV ONETIME ONE Stop: 07/24/16 10:59 Last Admin: 07/24/16 09:08 Dose: 50 mls/hr Sodium Chloride (Normal Saline) 1,000 mls @ 50 mls/hr IV ASDIRECTED [facility] Last Admin: 07/25/16 03:54 Dose: 50 mls/hr Albumin Human (Flexbumin 25%) 12.5 gm in 50 mls @ 25 mls/hr IV ONETIME ONE Stop: 07/24/16 17:29 Last Admin: 07/24/16 15:47 Dose: 25 mls/hr Calcium Gluconate 2 gm/ Sodium (Chloride) 120 mls @ 100 mls/hr IV ONETIME ONE Stop: 07/26/16 18:41 Last Admin: 07/26/16 17:10 Dose: 100 mls/hr Insulin Human Regular (Novolin R) 5 unit IVPUSH ONETIME ONE PRN Reason: Protocol Stop: 07/21/16 22:30 Last Admin: 07/21/16 23:03 Dose: 5 units Leflunomide (Arava) 10 mg PO Q48H [facility] Last Admin: 07/22/16 04:29 Dose: Not Given Lidocaine HCl (Xylocaine-Mpf 1%) 5 ml INJECT ONETIME ONE Stop: 07/26/16 13:46 Last Admin: 07/26/16 14:00 Dose: 5 ml Lidocaine HCl (Xylocaine-Mpf 1%) Confirm Administered Dose 5 ml .ROUTE .STK-MED ONE Stop: 07/26/16 14:19 Last Admin: 07/26/16 14:43 Dose: 5 ml Lidocaine HCl (Xylocaine-Mpf 1%) 5 ml INJECT ONETIME ONE Stop: 07/26/16 14:19 Last Admin: 07/26/16 17:10 Dose: Not Given Lidocaine/Epinephrine (Xylocaine 1% With Epinephrine 1:100,000) Confirm Administered Dose 50 ml .ROUTE .STK-MED ONE Stop: 07/23/16 06:56 Last Admin: 07/23/16 10:44 Dose: 4.5 ml Metronidazole (Metronidazole) 500 mg PO Q8H [facility] Last Admin: 07/25/16 05:52 Dose: 500 mg Midazolam HCl (Versed 1 Mg/Ml) Confirm Administered Dose 2 mg .ROUTE .STK-MED ONE Stop: 07/23/16 08:23 Potassium Chloride (Klor-Con M20) 40 meq PO ONETIME ONE Stop: 07/21/16 23:45 Last Admin: 07/22/16 00:33 Dose: 40 meq Potassium Chloride (Klor-Con M20) 40 meq PO ONETIME ONE Stop: 07/24/16 09:01 Last Admin: 07/24/16 09:15 Dose: 40 meq Prochlorperazine Edisylate (Compazine) 10 mg IVPUSH ONETIME ONE Stop: 07/21/16 21:14 Last Admin: 07/21/16 21:22 Dose: 10 mg Propofol (Diprivan 20 Ml) Confirm Administered Dose 200 mg .ROUTE .STK-MED ONE Stop: 07/23/16 08:23 Sodium Polystyrene Sulfonate (Kayexalate) 15 gm PO ONETIME ONE Stop: 07/21/16 22:30 Last Admin: 07/21/16 23:11 Dose: 15 gm Sodium Polystyrene Sulfonate (Kayexalate) 45 gm RECTAL NOW ONE Stop: 07/21/16 22:30 Last Admin: 07/21/16 23:26 Dose: Not Given Vancomycin HCl (Vancocin 250 Mg/5 Ml Soln) 125 mg PO QID [facility] Last Admin: 07/26/16 06:22 Dose: 125 mg - Exam Quality Assessment: DVT prophylaxis General: alert, oriented, cooperative, no acute distress Lungs: Clear to auscultation, Normal respiratory effort Cardiovascular: Regular Rate, Regular Rhythm Abdomen: bowel sounds present, soft, no tenderness, no distension Extremities: edema Skin: warm, dry, intact - Problem List Review Problem List Initiated/Reviewed/Updated: Yes - My Orders Last 24 Hours: My Active Orders 07/28/16 12:27 Furosemide [Lasix] 40 mg IVPUSH NOW ONE 07/29/16 05:00 BASIC METABOLIC PANEL,BMP [CHEM] Timed 07/29/16 08:00 Furosemide [Lasix] 40 mg IVPUSH NOW ONE - Plan Plan:: Assessment and Plan - Clostridium difficile colitis with sepsis - improvement in diarrhea over the past 24 hours, now relatively infrequent -Vancomycin 250 mg by mouth every 6 hours -Probiotics twice daily -saline lock IV -Followup Blood cultures -Physical therapy to help with generalized weakness Fluid overload-edema has improved with diuresis -Lasix 40 milligrams IV this afternoon -Lasix 40 mg IV in a.m. -Reassess in a.m. Acute kidney injury - secondary to sepsis, levels have normalized. -encourage by mouth intake -Labs in the morning Hypokalemia - potassium level within normal range today -40 mEq of potassium twice daily -Repeat labs in the morning, continue replacement as indicated Difficult IV access - Rizvi catheter placed 07/23 and seems to be functioning well. -Rizvi catheter Recurrent pancreatic cancer - Patient with apparent second primary pancreatic cancer. She is receiving chemotherapy at this time with the [facility] and [facility] both contributing to the care plan. Last chemotherapy was a couple weeks ago. Patient will need to improve strength and nutrition before she can have additional chemotherapy. she had a portal vein stents placed at the [facility] earlier this week. This was done to help alleviate the ascites. She had a large volume paracentesis yesterday with significant improvement in her symptoms. She does have some drainage from the paracentesis site which is currently controlled using an ostomy bag. There is no evidence for bleeding. Maintenance issues - - DVT prophylaxis - Apixiban - GI prophylaxis - PPI - Nutrition - regular diet - Feldman catheter - removed yesterday Disposition - anticipate discharge to home tomorrow
[2016-07-28] MEDS ORDERED: Furosemide 40 MG/4 ML VIAL IVPUSH ONE (13:00)
[2016-07-28] MEDS: Amitriptyline 25 MG Tab PO SCH (21:15)
[2016-07-29] MEDS: Sodium Chloride 0.9% 10 ML Syringe FLUSH PRN (04:12)
[2016-07-29] MEDS: Acetaminophen/HYDROcodone 325-5 MG Tab PO PRN (04:34)
[2016-07-29] MEDS: Vancomycin 250 MG/5 ML ML Oral Solution PO SCH ×2 (07:41→11:06)
[2016-07-29] MEDS: Pantoprazole 40 MG Tab.CR PO SCH (07:47)
[2016-07-29] MEDS: Potassium Chloride 20 MEQ Tab.ER PO SCH (07:48)
[2016-07-29] MEDS: Amylase/Lipase/Protease 24,000 Unit Cap.CR PO SCH (07:48)
[2016-07-29] MEDS ORDERED: Furosemide 40 MG/4 ML VIAL IVPUSH ONE (08:00)
[2016-07-29] MEDS: Lactobacillus Rhamnosus GG (Probiotic) Cap PO SCH (08:05)
[2016-07-29] MEDS: Apixaban 2.5 MG Tab PO SCH (08:05)
[2016-07-29] MEDS: Metoprolol Tartrate 25 MG Tab PO SCH (08:05)
[2016-07-29] MEDS: Calcium Carbonate/Vitamin D3 1500 MG-400 Units Tab PO SCH (08:05)
[2016-07-29] MEDS: predniSONE 10 MG Tab PO SCH (08:06)
[2016-07-29] MEDS: Ondansetron 4 MG Tab.DIS PO PRN (09:40)
[2016-07-29 11:36] VITALS: BP 120/72
[2016-07-29] MEDS ORDERED: Amylase/Lipase/Protease 12,000 Unit Cap.CR PO SCH (12:00)
--- NOTE | 2016-07-29 12:35 | PCM.DCSUM1 ---
Discharge Summary - Hospital Course Brief History: This patient is a 70-year-old woman who presented to the emergency department and then was admitted because of progressive weakness, nausea vomiting, abdominal discomfort, and fever. - Discharge Data Discharge Date: 07/29/16 Discharge Disposition: Home, Self-Care 01 Condition: Undetermined - Discharge Diagnosis/Problem(s) (1) Clostridium difficile colitis SNOMED Code(s): 891981508 ICD Code: A04.7 - ENTEROCOLITIS DUE TO CLOSTRIDIUM DIFFICILE Status: Acute Current Visit: Yes (2) Sepsis SNOMED Code(s): 36668291 ICD Code: A41.9 - SEPSIS, UNSPECIFIED ORGANISM Status: Acute Current Visit: Yes Problem Details: Secondary to Clostridium difficile Qualifiers: Sepsis type: sepsis due to unspecified organism Qualified Code(s): A41.9 - Sepsis, unspecified organism (3) Pancreatic cancer SNOMED Code(s): 636652123 ICD Code: C25.9 - MALIGNANT NEOPLASM OF PANCREAS, UNSPECIFIED Status: Chronic Current Visit: Yes Problem Details: Recurrent, suspect second primary pancreatic cancer Qualifiers: Pancreatic malignancy location: tail of pancreas Qualified Code(s): C25.2 - Malignant neoplasm of tail of pancreas (4) Rheumatoid arthritis SNOMED Code(s): 75316557 ICD Code: M06.9 - RHEUMATOID ARTHRITIS, UNSPECIFIED Status: Chronic Current Visit: No - Patient Summary/Data Consults: Consultations 07/22/16 15:44 Consult to Physician [CONS] Routine Consulting Provider: Ian Gar Call Completed to Consulting Physician: Yes Reason for Consult: consider Port vs Rizvi Person Notified: DEVINE Date Notified: 07/22/16 Special Instructions: planning Rizvi insertion tomorrow, NPO after midnight 07/23/16 08:42 PT Evaluation and Treatment [CONS] Routine Please Evaluate and Treat. PT Reason for Consult: Strengthening This query below is only for informational purposes and is not editable. Admission Diagnosis/Problem: Hypotension Hospital Course: This patient is a 70-year-old woman with a known history of recurrent pancreatic cancer. She just been done at the [facility] in [place] did have a stent placed at that time because of obstructive symptoms. She also is had ongoing difficulty with ascites related to liver involvement. Prior to admission she developed increased abdominal pain, nausea vomiting, fever, and progressive weakness. On initial evaluation had temperature increase as well as elevation in her white blood cell count. Evaluation was unremarkable as to the underlying source of her infection and probable sepsis. On admission she was started on broad-spectrum antibiotics and received IV fluids for management of her sepsis. After initial admission she did begin to develop regular diarrheal stools which were checked for C. difficile and found to be positive. Antibiotics were switched oral vancomycin for management of her C. difficile colitis and this was felt to be the underlying cause of her fever as well as sepsis. With fluids given intravenously for management of her sepsis she did develop increased ascites. Consult was placed to Dr. Sierra who performed paracentesis and drainage of 4-1/2 L of ascitic fluid. With the vancomycin her diarrhea slowly improved and she was stable from a hemodynamic standpoint. Appetite improved and she did regain some strength. She does want to consider further treatment of her pancreatic cancer in refused consideration of hospice referral. She will be discharged home with home physical therapy and occupational therapy. Activity will be as tolerated and she will resume her usual diet. All of appointment will be scheduled with Dr. Steve within one week. Sutures placed because of drainage from the abdominal wall will need to be removed early next week. She will remain on oral vancomycin 250 mg twice daily for an additional 10 days. - Patient Instructions Diet: Usual Diet as Tolerated Activity: As Tolerated Other/Special Instructions: Please schedule followup appointment with Dr. Steve within one week. Please arrange for home care with home physical therapy and occupational therapy. - Discharge Plan Prescriptions/Med Rec: Vancomycin [Vancocin 250 MG/5 ML Soln] 250 mg PO QID #200 ml Home Medications: Home Meds Amitriptyline [Elavil] 25 mg PO BEDTIME 12/06/12 [History] Multivitamin/Iron/Folic Acid [Centrum Complete Multivit] 1 each PO DAILY [History] Simvastatin [Zocor] 20 mg PO BEDTIME 12/06/12 [History] predniSONE 5 mg PO DAILY 12/06/12 [History] Hydrocodone/Acetaminophen [Hydrocodon-Acetaminophen 5-325] 1 tab PO Q6H PRN 03/12 [History] Acetaminophen 650 mg PO Q6H PRN 07/14/15 [History] Apixaban [Eliquis] 2.5 mg PO BID 07/14/15 [History] Calcium Citrate/Vitamin D3 [Calcium Citrate-Vit D3 Tablet] 1 tab PO BID [History] Metoprolol Tartrate [Lopressor] 12.5 mg PO BID 07/14/15 [History] Potassium Chloride [Klor-Con M20] 20 meq PO DAILY 07/14/15 [History] Prochlorperazine Maleate [Compazine] 10 mg PO Q6H PRN 07/14/15 [History] Furosemide 40 mg PO DAILY 06/21/16 [History] Leflunomide 10 mg PO .Q48HR 06/21/16 [History] Nystatin 1 cm TOP TID PRN 06/21/16 [History] Omeprazole 40 mg PO DAILY 06/21/16 [History] Ondansetron [Zofran] 8 mg PO Q12HR 06/21/16 [History] Amylase/Lipase/Protease [[place] DR 24,000 Unit] 2 cap PO TID 07/21/16 [History] Vancomycin [Vancocin 250 MG/5 ML Soln] 250 mg PO QID #200 ml 07/29/16 [Rx] Referrals: David Steve MD [Primary Care Provider] - - Patient Data Vitals - Most Recent: Last Vital Signs Temp 97.4 F 07/29/16 11:34 Pulse 95 07/29/16 11:34 Resp 18 07/29/16 11:34 BP 120/72 07/29/16 11:34 Pulse Ox 97 07/29/16 11:34 Weight - Most Recent: 142 lb 9.6 oz I&O - Last 24 hours: Intake & Output 07/28/16 07/29/16 07/29/16 22:59 06:59 14:59 Intake Total 560 300 480 Output Total 1025 800 Balance -465 300 -320 Lab Results - Last 24 hrs: Laboratory Results - last 24 hr 07/29/16 Range/Units 05:00 Sodium 138 L (140-148) mmol/L Potassium 5.2 (3.6-5.2) mmol/L Chloride 107 (100-108) mmol/L Carbon Dioxide 28 (21-32) mmol/L Anion Gap 8.2 (5.0-14.0) mmol/L BUN 5 L (7-18) mg/dL Creatinine 0.6 (0.6-1.0) mg/dL Est Cr Clr Drug Dosing 80.51 mL/min Estimated GFR (MDRD) > 60 (>60) Glucose 85 (74-106) mg/dL Calcium 7.2 L (8.5-10.1) mg/dL Med Orders - Current: Current Medications Acetaminophen (Tylenol) 650 mg PO Q4H PRN PRN Reason: Pain (Mild 1-3)/fever Last Admin: 07/27/16 01:38 Dose: 650 mg Hydrocodone Bitart/Acetaminophen ([place] 325-5 Mg) 1 tab PO Q6H PRN PRN Reason: Pain Last Admin: 07/29/16 04:34 Dose: 1 tab Albuterol (Proventil Neb Soln) 2.5 mg NEB Q4H PRN PRN Reason: Shortness Of Breath/wheezing Amitriptyline HCl (Elavil) 25 mg PO BEDTIME [facility] Last Admin: 07/28/16 21:15 Dose: 25 mg Lipase/Protease/Amylase ([place] Dr 12,000 Units) 4 cap PO TIDMEALS [facility] Apixaban (Eliquis) 2.5 mg PO BID [facility] Last Admin: 07/29/16 08:05 Dose: 2.5 mg Bacitracin (Bacitracin Oint) 0 gm TOP TID PRN PRN Reason: Wound Care Last Admin: 07/26/16 17:16 Dose: 1 applic Calcium Carbonate (Caltrate 600+D 1500 Mg-400 Units) 2 tab PO BID [facility] Last Admin: 07/29/16 08:05 Dose: 2 tab Calcium Carbonate/Glycine (Tums) 1,000 mg PO Q2H PRN PRN Reason: Indigestion Dimethicone/Zinc Oxide (Rash Relief-Zinc Oxide [place]) 0 gm TOP ASDIRECTED PRN PRN Reason: Rash Last Admin: 07/27/16 04:41 Dose: 1 applic Heparin Sodium (Porcine) (Heparin Lock Flush 100 Units/Ml Syringe) 500 units FLUSH ASDIRECTED PRN PRN Reason: IV Use Last Admin: 07/29/16 04:12 Dose: 500 units Lactobacillus Rhamnosus (Culturelle) 2 cap PO BID [facility] Last Admin: 07/29/16 08:05 Dose: 2 cap Leflunomide (Arava) 10 mg PO Q48H [facility] Last Admin: 07/28/16 09:54 Dose: 10 mg Lorazepam (Ativan) 0.5 - 1 mg IVPUSH Q4H PRN PRN Reason: Nausea/Vomiting Metoprolol Tartrate (Lopressor) 12.5 mg PO BID [facility] Last Admin: 07/29/16 08:05 Dose: 12.5 mg Morphine Sulfate (Morphine) 2 - 4 mg IVPUSH Q2H PRN PRN Reason: Pain (severe 7-10) Last Admin: 07/27/16 19:44 Dose: 2 mg Ondansetron HCl (Zofran Odt) 4 mg PO Q6H PRN PRN Reason: Nausea able to take PO Last Admin: 07/29/16 09:40 Dose: 4 mg Ondansetron HCl (Zofran) 4 mg IV Q6H PRN PRN Reason: Nausea/Vomiting Last Admin: 07/25/16 15:51 Dose: 4 mg Pantoprazole Sodium (Protonix) 40 mg PO ACBREAKFAST [facility] Last Admin: 07/29/16 07:47 Dose: 40 mg Polyethylene Glycol (Miralax) 17 gm PO DAILY PRN PRN Reason: Constipation Prednisone (Prednisone) 10 mg PO DAILY [facility] Last Admin: 07/29/16 08:06 Dose: 10 mg Prochlorperazine Maleate (Compazine) 10 mg PO Q6H PRN PRN Reason: Nausea Sodium Chloride (Saline Flush) 10 ml FLUSH ASDIRECTED PRN PRN Reason: Keep Vein Open Last Admin: 07/29/16 04:12 Dose: 10 ml Vancomycin HCl (Vancocin 250 Mg/5 Ml Soln) 250 mg PO QID [facility] Last Admin: 07/29/16 11:06 Dose: 250 mg Discontinued Medications Albuterol (Proventil Neb Soln) 2.5 mg NEB ONETIME ONE Stop: 07/21/16 22:30 Last Admin: 07/21/16 22:58 Dose: 2.5 mg Lipase/Protease/Amylase ([place] Dr 12,000 Units) cap PO TID [facility] Lipase/Protease/Amylase ([place] Dr 12,000 Units) 4 cap PO TID [facility] Lipase/Protease/Amylase ([place] Dr 6,000 Units) 8 cap PO TIDMEALS [facility] Stop: 07/24/16 14:00 Last Admin: 07/24/16 13:34 Dose: Not Given Lipase/Protease/Amylase ([place] 24,000 Units) 2 cap PO TIDMEALS [facility] Stop: 07/29/16 09:00 Last Admin: 07/29/16 07:48 Dose: 2 cap Bacitracin (Bacitracin Oint) 1 gm TOP TID [facility] Bupivacaine HCl (Marcaine 0.5%) Confirm Administered Dose 50 ml .ROUTE .STK-MED ONE Stop: 07/23/16 06:56 Last Admin: 07/23/16 10:44 Dose: 4.5 ml Calcium Gluconate (Calcium Gluconate) 1 gm IVPUSH ONETIME ONE Stop: 07/21/16 22:30 Last Admin: 07/21/16 23:06 Dose: 1 gm Dextrose/Water (Dextrose 50% In Water) 50 ml IVPUSH ONETIME ONE Stop: 07/21/16 22:30 Last Admin: 07/21/16 23:00 Dose: 50 ml Dextrose/Water (Dextrose 50% In Water) 50 ml IVPUSH ONETIME ONE Stop: 07/22/16 01:35 Last Admin: 07/22/16 02:11 Dose: 50 ml Fentanyl (Sublimaze) Confirm Administered Dose 100 mcg .ROUTE .STK-MED ONE Stop: 07/23/16 08:23 Furosemide (Lasix) 40 mg PO DAILY [facility] Last Admin: 07/27/16 09:36 Dose: 40 mg Furosemide (Lasix) 40 mg IVPUSH ONETIME ONE Stop: 07/24/16 08:46 Last Admin: 07/24/16 09:08 Dose: 40 mg Furosemide (Lasix) 40 mg IVPUSH NOW ONE Stop: 07/27/16 15:01 Last Admin: 07/27/16 14:37 Dose: 40 mg Furosemide (Lasix) 40 mg IVPUSH ONETIME ONE Stop: 07/28/16 13:01 Last Admin: 07/28/16 13:00 Dose: 40 mg Furosemide (Lasix) 40 mg IVPUSH ONETIME ONE Stop: 07/29/16 08:01 Last Admin: 07/29/16 07:49 Dose: 40 mg Heparin Sodium (Porcine) (Heparin Lock Flush 100 Units/Ml Syringe) Confirm Administered Dose 1,500 units .ROUTE .STK-MED ONE Stop: 07/23/16 06:56 Last Admin: 07/23/16 10:45 Dose: 1,500 units Heparin Sodium (Porcine) (Heparin Lock Flush 100 Units/Ml Syringe) Confirm Administered Dose 500 units .ROUTE .STK-MED ONE Stop: 07/25/16 05:46 Last Admin: 07/25/16 05:55 Dose: 500 units Hydrocortisone Sodium Succinate (Solu-Cortef) 100 mg IVPUSH ONETIME ONE Stop: 07/22/16 01:05 Last Admin: 07/22/16 02:18 Dose: 100 mg Hydrocortisone Sodium Succinate (Solu-Cortef) Confirm Administered Dose 100 mg .ROUTE .STK-MED ONE Stop: 07/22/16 02:16 Last Admin: 07/22/16 02:55 Dose: Not Given Hydromorphone HCl (Dilaudid) 1 mg IVPUSH ONETIME ONE Stop: 07/21/16 21:12 Last Admin: 07/21/16 21:26 Dose: 1 mg Lactated Ringer's (Ringers, Lactated) 1,000 mls @ 500 mls/hr IV BOLUS ONE Stop: 07/21/16 23:10 Last Infusion: 07/21/16 22:21 Dose: 250 mls/hr Potassium Chloride 40 meq/ (Premix) 100 mls @ 25 mls/hr IV ONETIME ONE Stop: 07/22/16 03:43 Potassium Chloride 20 meq/ (Premix) 100 mls @ 50 mls/hr IV ONETIME ONE Stop: 07/22/16 02:06 Last Admin: 07/22/16 00:31 Dose: 50 mls/hr Lactated Ringer's (Ringers, Lactated) 1,000 mls @ 999 mls/hr IV ASDIRECTED [facility] Stop: 07/22/16 02:16 Last Admin: 07/22/16 02:57 Dose: 999 mls/hr Cefepime HCl 1 gm/ Sodium (Chloride) 50 mls @ 100 mls/hr IV Q8H [facility] Last Admin: 07/22/16 01:43 Dose: 100 mls/hr Sodium Chloride (Normal Saline) 1,000 mls @ 125 mls/hr IV ASDIRECTED [facility] Last Admin: 07/24/16 07:09 Dose: 125 mls/hr Ciprofloxacin/Dextrose 400 mg/ (Premix) 200 mls @ 200 mls/hr IV Q24H [facility] Last Admin: 07/23/16 02:03 Dose: 200 mls/hr Potassium Chloride 20 meq/ (Premix) 100 mls @ 50 mls/hr IV ONETIME ONE Stop: 07/22/16 04:59 Last Admin: 07/22/16 02:57 Dose: 50 mls/hr Potassium Chloride (Kcl 20 Meq In Water 100 Ml) Confirm Administered Dose 100 mls @ as directed .ROUTE .STK-MED ONE Stop: 07/22/16 02:54 Last Admin: 07/22/16 03:05 Dose: Not Given Cefepime HCl 1 gm/ Sodium (Chloride) 50 mls @ 100 mls/hr IV Q8H [facility] Last Admin: 07/23/16 02:01 Dose: 100 mls/hr Magnesium Sulfate 2 gm/ Premix 50 mls @ 25 mls/hr IV Q6H [facility] Stop: 07/22/16 22:59 Last Admin: 07/22/16 20:18 Dose: 25 mls/hr Sodium Chloride (Normal Saline) 500 mls @ 500 mls/hr IV .BOLUS ONE Stop: 07/23/16 21:51 Last Admin: 07/23/16 21:00 Dose: 500 mls/hr Sodium Chloride (Normal Saline) 500 mls @ 500 mls/hr IV .BOLUS ONE Stop: 07/23/16 23:04 Last Admin: 07/23/16 22:07 Dose: 500 mls/hr Potassium Chloride 20 meq/ (Premix) 100 mls @ 50 mls/hr IV ONETIME ONE Stop: 07/24/16 10:59 Last Admin: 07/24/16 09:08 Dose: 50 mls/hr Sodium Chloride (Normal Saline) 1,000 mls @ 50 mls/hr IV ASDIRECTED [facility] Last Admin: 07/25/16 03:54 Dose: 50 mls/hr Albumin Human (Flexbumin 25%) 12.5 gm in 50 mls @ 25 mls/hr IV ONETIME ONE Stop: 07/24/16 17:29 Last Admin: 07/24/16 15:47 Dose: 25 mls/hr Calcium Gluconate 2 gm/ Sodium (Chloride) 120 mls @ 100 mls/hr IV ONETIME ONE Stop: 07/26/16 18:41 Last Admin: 07/26/16 17:10 Dose: 100 mls/hr Insulin Human Regular (Novolin R) 5 unit IVPUSH ONETIME ONE PRN Reason: Protocol Stop: 07/21/16 22:30 Last Admin: 07/21/16 23:03 Dose: 5 units Leflunomide (Arava) 10 mg PO Q48H [facility] Last Admin: 07/22/16 04:29 Dose: Not Given Lidocaine HCl (Xylocaine-Mpf 1%) 5 ml INJECT ONETIME ONE Stop: 07/26/16 13:46 Last Admin: 07/26/16 14:00 Dose: 5 ml Lidocaine HCl (Xylocaine-Mpf 1%) Confirm Administered Dose 5 ml .ROUTE .STK-MED ONE Stop: 07/26/16 14:19 Last Admin: 07/26/16 14:43 Dose: 5 ml Lidocaine HCl (Xylocaine-Mpf 1%) 5 ml INJECT ONETIME ONE Stop: 07/26/16 14:19 Last Admin: 07/26/16 17:10 Dose: Not Given Lidocaine/Epinephrine (Xylocaine 1% With Epinephrine 1:100,000) Confirm Administered Dose 50 ml .ROUTE .STK-MED ONE Stop: 07/23/16 06:56 Last Admin: 07/23/16 10:44 Dose: 4.5 ml Metronidazole (Metronidazole) 500 mg PO Q8H [facility] Last Admin: 07/25/16 05:52 Dose: 500 mg Midazolam HCl (Versed 1 Mg/Ml) Confirm Administered Dose 2 mg .ROUTE .STK-MED ONE Stop: 07/23/16 08:23 Potassium Chloride (Klor-Con M20) 40 meq PO ONETIME ONE Stop: 07/21/16 23:45 Last Admin: 07/22/16 00:33 Dose: 40 meq Potassium Chloride (Klor-Con M20) 40 meq PO ONETIME ONE Stop: 07/24/16 09:01 Last Admin: 07/24/16 09:15 Dose: 40 meq Potassium Chloride (Klor-Con M20) 40 meq PO BIDMEALS [facility] Last Admin: 07/29/16 07:48 Dose: 40 meq Prochlorperazine Edisylate (Compazine) 10 mg IVPUSH ONETIME ONE Stop: 07/21/16 21:14 Last Admin: 07/21/16 21:22 Dose: 10 mg Propofol (Diprivan 20 Ml) Confirm Administered Dose 200 mg .ROUTE .STK-MED ONE Stop: 07/23/16 08:23 Sodium Polystyrene Sulfonate (Kayexalate) 15 gm PO ONETIME ONE Stop: 07/21/16 22:30 Last Admin: 07/21/16 23:11 Dose: 15 gm Sodium Polystyrene Sulfonate (Kayexalate) 45 gm RECTAL NOW ONE Stop: 07/21/16 22:30 Last Admin: 07/21/16 23:26 Dose: Not Given Vancomycin HCl (Vancocin 250 Mg/5 Ml Soln) 125 mg PO QID [facility] Last Admin: 07/26/16 06:22 Dose: 125 mg *Q Meaningful Use (DIS) - VTE *Q VTE Criteria *Q: - Stroke *Q Stroke Criteria *Q: - AMI *Q AMI Criteria *Q:
[2016-07-29] MEDS: Dimethicone 20%/Zinc Oxide 25% 56 GM Spray Bottle TOP PRN (14:18)
== END 2016-07-29 14:46 | disposition home or self-care (01) | DRG 854 ==
LOC: JP.ED 20:14 → JP.ICU 07-22 01:07 → JP.MS 07-24 12:10
PROVIDERS: ADMIT Internal Medicine; ATTEND Hospitalist
PROC: 05HN33Z Insertion of Infusion Device into Left Internal Jugular Vein, Percutaneous Approach (ICD-10-PCS; principal; 2016-07-23)
PROC: 0W9G30Z Drainage of Peritoneal Cavity with Drainage Device, Percutaneous Approach (ICD-10-PCS; 2016-07-24)
PROC: 0DL Gastrointestinal System, Occlusion (ICD-10-PCS; 2016-07-26)
DX: A41.9 Sepsis, unspecified organism (principal); A04.7 Enterocolitis due to Clostridium difficile; C25.2 Malignant neoplasm of tail of pancreas; N17.9 Acute kidney failure, unspecified; R18.0 Malignant ascites; M06.9 Rheumatoid arthritis, unspecified; Z98.890 Other specified postprocedural states; I95.9 Hypotension, unspecified; E87.6 Hypokalemia; E78.00 Pure hypercholesterolemia, unspecified; I10 Essential (primary) hypertension; K21.9 Gastro-esophageal reflux disease without esophagitis; M19.90 Unspecified osteoarthritis, unspecified site; R60.9 Edema, unspecified; Z95.9 Presence of cardiac and vascular implant and graft, unspecified; Z79.01 Long term (current) use of anticoagulants
CPT/HCPCS: 36415; 74176; 80053; 82310; 83605; 84132; 85025; 93005; 93010; 96361; 96374; 96375; 99285 ×2; A9270; J0610; J0780; J1170; J3480; J7050 ×2; J7120; 80048; 81001; 82330; 82962; 83735; 85027; 86140; 87040; 87493; 97110-GP; 97116-GP; 97162-GP; 97530-GP; 97535-GP; C1751; J0692; J0744; J1642; J1720; J1940; J2250; J2270; J2405; J2704; J3010; J3475; J7030; J7040; P9047

== ENCOUNTER 2016-08-22 12:04 | Inpatient (IN) | payer MEDICARE, BC ==
[~2016-08-22 12:04] MED LIST: LEFLUNOMIDE 20 MG PO SCH
[2016-08-22] MEDS ORDERED: Sodium Chloride 0.9% 1,000 ML IV SCH ×2 (13:00→17:28)
--- NOTE | 2016-08-22 13:00 | EDM.PDOC ---
ED HPI GENERAL MEDICAL PROBLEM - General Chief Complaint: General Stated Complaint: NAUSEA [place]IA [place] Time Seen by Provider: 08/22/16 12:45 Source of Information: Reports: Patient, Family History Limitations: Reports: No Limitations - History of Present Illness INITIAL COMMENTS - FREE TEXT/NARRATIVE: 71 yo female with pancreatic cancer transported to ER via ambulance c/o nausea and weakness. pt reports she fell last night and this morning. feels weak. Diarrhea for the last few months this is being evaluated by primary care provider. She was scheduled for Chemo therapy last tuesday however was held because of unfavorable lab results. Has appt scheduled for lab on tomorrow with oncology visit Tuesday. Back Pain Score (Numeric/FACES): 5 - Related Data Allergies Allergy/AdvReac Type Severity Reaction Status Date / Time hydroxychloroquine Allergy Intermediate Hives Verified 08/22/16 17:29 diclofenac [Diclofenac] Allergy Rash Verified 08/22/16 17:29 irinotecan [From Camptosar] Allergy Difficulty Verified 08/22/16 17:29 Swallowing propoxyphene Allergy Cannot Verified 08/22/16 17:29 Remember codeine AdvReac Nausea Verified 08/22/16 17:29 Sulfa (Sulfonamide AdvReac Nausea Verified 08/22/16 17:29 Antibiotics) Home Meds: Home Meds Amitriptyline [Elavil] 25 mg PO BEDTIME 12/06/12 [History] Multivitamin/Iron/Folic Acid [Centrum Complete Multivit] 1 each PO DAILY [History] Simvastatin [Zocor] 20 mg PO BEDTIME 12/06/12 [History] predniSONE 5 mg PO DAILY 12/06/12 [History] Apixaban [Eliquis] 2.5 mg PO BID 07/14/15 [History] Calcium Citrate/Vitamin D3 [Calcium Citrate-Vit D3 Tablet] 1 tab PO BID [History] Metoprolol Tartrate [Lopressor] 12.5 mg PO BID 07/14/15 [History] Potassium Chloride [Klor-Con M20] 20 meq PO DAILY 07/14/15 [History] Prochlorperazine Maleate [Compazine] 10 mg PO Q6H PRN 07/14/15 [History] Furosemide 40 mg PO DAILY 06/21/16 [History] Leflunomide 10 mg PO .Q48HR 06/21/16 [History] Omeprazole 40 mg PO DAILY 06/21/16 [History] Ondansetron [Zofran] 8 mg PO Q12HR 06/21/16 [History] Amylase/Lipase/Protease [Lyndsey LOVING 24,000 Unit] 2 cap PO TID 07/21/16 [History] Apixaban [Eliquis] 1 tab PO DAILY 08/22/16 [History] Hydrocodone/Acetaminophen [[place] 10-325 Tablet] 1 tab PO Q6H PRN 08/22/16 [ History] Triamcinolone Acetonide [Triamcinolone Acetonide 0.1% Oint] 1 dose PO BID [History] Past Medical History HEENT History: Reports: Impaired Vision Other HEENT History: wears glasses Cardiovascular History: Reports: Arrhythmia, High Cholesterol, Hypertension Gastrointestinal History: Reports: Chronic Diarrhea, GERD, Hemorrhoids, Other ( See Below) Other Gastrointestinal History: pancreatic cancer HOSE TESTER History: Reports: Musculoskeletal History: Reports: Amputation, Arthritis, Back Pain, Chronic, Fracture, Fibromyalgia, Neck Pain, Chronic, Osteoarthritis, RA Other Musculoskeletal History: bunions removed, Hematologic History: Reports: Blood Transfusion(s) Immunologic History: Reports: Immunosuppression Oncologic (Cancer) History: Reports: Pancreatic Other Oncologic History: had 6 weeks of chemo June 2014, completed radiation December 31/2105;. Currently receiving Chemo although while at [facility] has not received it. Dermatologic History: Reports: Other (See Below) Other Dermatologic History: skin graft to abdomen - Infectious Disease History Infectious Disease History: Reports: C-Difficile, Chicken Pox, Measles Other Infectious Disease History: states currently being treated for C-diff - Past Surgical History HEENT Surgical History: Reports: None GI Surgical History: Reports: Cholecystectomy, Colonoscopy, EGD, Other (See Below) Other GI Surgeries/Procedures: stent in bile duct, stent in liver. Female Surgical History: Reports: Hysterectomy Musculoskeletal Surgical History: Reports: Hip Replacement, Other (See Below) Other Musculoskeletal Surgeries/Procedures:: repair of broken arm Dermatological Surgical History: Reports: Skin Biopsy Social & Family History - Family History Cardiac: Reports: Heart Valve Replacement, [place] Neurological: Reports: CVA Endocrine/Metabolic: Reports: Diabetes, type II Oncologic: Reports: Breast, Cervix, Other (See Below) Other Oncologic Family History: throat cancer; skin cancer - Tobacco Use Smoking Status *Q: Never Smoker Second Hand Smoke Exposure: No - Caffeine Use Caffeine Use: Reports: None - Alcohol Use Days Per Week of Alcohol Use: 0 - Recreational Drug Use Recreational Drug Use: No ED ROS GENERAL - Review of Systems Review Of Systems: See Below Constitutional: Reports: Fatigue. Denies: Fever, Chills Respiratory: Denies: Shortness of Breath, Wheezing Cardiovascular: Denies: Chest Pain GI/Abdominal: Reports: Nausea. Denies: Abdominal Pain ED EXAM, GENERAL - Physical Exam Exam: See Below Exam Limited By: No Limitations General Appearance: Alert, WD/WN, No Apparent Distress Head: Normocephalic, Other (mild edema to right crown ) Neck: Normal Inspection, Supple, Non-Tender, Full Range of Motion. No: Lymphadenopathy (R), Lymphadenopathy (L) Respiratory/Chest: No Respiratory Distress, Lungs Clear, Normal Breath Sounds. No: Crackles, Rhonchi, Wheezing Cardiovascular: Tachycardia GI/Abdominal: Soft, Non-Tender, Distended Psychiatric: Normal Affect, Normal Mood Skin Exam: Warm, Dry, Intact Course - Vital Signs Last Recorded V/S: Last Vital Signs Temp 36.1 C 08/22/16 19:00 Pulse 118 H 08/22/16 19:00 Resp 16 08/22/16 19:00 BP 93/61 08/22/16 19:00 Pulse Ox 90 L 08/22/16 19:00 - Orders/Labs/Meds Orders: Active Orders 24 hr Category Date Time Status CULTURE BLOOD [BC] Stat Lab 08/22/16 13:15 Received CULTURE BLOOD [BC] Stat Lab 08/22/16 13:15 Received Medication Orders Hydrocodone Bitart/Acetaminophen ([place] 325-10 Mg) 1 tab PO Q6H PRN PRN Reason: Pain Last Admin: 08/22/16 20:07 Dose: 1 tab Amitriptyline HCl (Elavil) 25 mg PO BEDTIME [facility] Lipase/Protease/Amylase (Creon Dr 24,000 Units) 2 cap PO TID [facility] Apixaban (Eliquis) 2.5 mg PO DAILY [facility] Diphenoxylate HCl/Atropine (Lomotil 0.025-2.5 Mg) 1 tab PO BID [facility] Diphenoxylate HCl/Atropine (Lomotil 0.025-2.5 Mg) 1 tab PO TID PRN PRN Reason: Diarrhea Hydromorphone HCl (Dilaudid) 0.5 mg IVPUSH Q2H PRN PRN Reason: Pain Sodium Chloride (Normal Saline) 1,000 mls @ 50 mls/hr IV ASDIRECTED [facility] Last Admin: 08/22/16 17:57 Dose: 50 mls/hr Leflunomide (Arava) 10 mg PO Q48H [facility] Metoprolol Tartrate (Lopressor) 12.5 mg PO BID [facility] Omeprazole 40mg Pt (Own) 40 each PO ACBREAKFAST [facility] Ondansetron HCl (Zofran) 4 mg IV Q4H PRN PRN Reason: Nausea/Vomiting Potassium Chloride (Klor-Con M20) 20 meq PO DAILY [facility] Prednisone (Prednisone) 5 mg PO DAILY [facility] Simvastatin (Zocor) 20 mg PO BEDTIME [facility] Sodium Chloride (Saline Flush) 10 ml FLUSH ASDIRECTED PRN PRN Reason: Keep Vein Open Labs: Laboratory Tests 08/22/16 08/22/16 08/22/16 Range/Units 13:15 13:15 15:19 WBC 6.0 (4.5-11.0) K/uL RBC 2.76 L (3.30-5.50) M/uL Hgb 10.2 L (12.0-15.0) g/dL Hct 29.1 L (36.0-48.0) % MCV 105 H (80-98) fL MCH 37 H (27-31) pg MCHC 35 (32-36) % Plt Count 88 L (150-400) K/uL Neut % (Auto) 85 H (36-66) % Lymph % (Auto) 6 L (24-44) % [place] % (Auto) 8 H (2-6) % Eos % (Auto) 1 L (2-4) % Baso % (Auto) 1 (0-1) % Sodium 138 L (140-148) mmol/L Potassium 3.7 (3.6-5.2) mmol/L Chloride 103 (100-108) mmol/L Carbon Dioxide 27 (21-32) mmol/L Anion Gap 11.7 (5.0-14.0) mmol/L BUN 7 (7-18) mg/dL Creatinine 1.0 D (0.6-1.0) mg/dL Est Cr Clr Drug Dosing 44.06 mL/min Estimated GFR (MDRD) 55 L (>60) Glucose 87 (74-106) mg/dL Calcium 6.6 L* (8.5-10.1) mg/dL Total Bilirubin 1.0 D (0.2-1.0) mg/dL AST 612 H D (15-37) U/L ALT 137 H (12-78) U/L Alkaline Phosphatase 301 H (46-116) U/L Total Protein 4.3 L (6.4-8.2) g/dL Albumin 1.0 L (3.4-5.0) g/dL Globulin 3.3 (2.3-3.5) g/dL Albumin/Globulin Ratio 0.3 L (1.2-2.2) Urine Color Yellow Urine Appearance Cloudy Urine pH 5.0 (4.5-8.0) Ur Specific [place] 1.020 (1.008-1.030) Urine Protein Negative (NEGATIVE) mg/dL Urine Glucose (UA) Normal (NEGATIVE) mg/dL Urine Ketones Negative (NEGATIVE) mg/dL Urine Occult Blood Negative (NEGATIVE) Urine Nitrite Negative (NEGATIVE) Urine Bilirubin Small (NEGATIVE) Urine Urobilinogen 1 (NORMAL) mg/dL Ur Leukocyte Esterase Large (NEGATIVE) Urine RBC 0-5 (0-5) Urine WBC 75-100 H (0-5) Ur Epithelial Cells Moderate Amorphous Sediment Not seen Urine Bacteria Many Urine Mucus Few Urine Other Meds: Medications Generic Name Dose Route Start Last Admin Trade Name Freq PRN Reason Stop Dose Admin Hydrocodone Bitart/Acetaminophen 1 tab 08/22/16 17:28 08/22/16 20:07 [place] 325-10 Mg PO 1 tab Q6H PRN Administration Pain Amitriptyline HCl 25 mg 08/22/16 21:00 Elavil PO BEDTIME [facility] Lipase/Protease/Amylase 2 cap 08/22/16 21:[address] 24,000 Units PO TID [facility] Apixaban 2.5 mg 08/23/16 09:00 Eliquis PO DAILY [facility] Diphenoxylate HCl/Atropine 1 tab 08/22/16 17:28 Lomotil 0.025-2.5 Mg PO BID [facility] Diphenoxylate HCl/Atropine 1 tab 08/22/16 17:28 Lomotil 0.025-2.5 Mg PO TID PRN Diarrhea Hydromorphone HCl 0.5 mg 08/22/16 17:28 Dilaudid IVPUSH Q2H PRN Pain Sodium Chloride 1,000 mls @ 50 mls/hr 08/22/16 17:28 08/22/16 17:57 Normal Saline IV 50 mls/hr ASDIRECTED [facility] Administration Leflunomide 10 mg 08/22/16 09:00 Arava PO Q48H [facility] Metoprolol Tartrate 12.5 mg 08/22/16 21:00 Lopressor PO BID [facility] Omeprazole 40mg Pt 40 each 08/23/16 07:30 Own PO ACBREAKFAST [facility] Ondansetron HCl 4 mg 08/22/16 17:28 Zofran IV Q4H PRN Nausea/Vomiting Potassium Chloride 20 meq 08/23/16 09:00 Klor-Con M20 PO DAILY [facility] Prednisone 5 mg 08/23/16 09:00 Prednisone PO DAILY [facility] Simvastatin 20 mg 08/22/16 21:00 Zocor PO BEDTIME [facility] Sodium Chloride 10 ml 08/22/16 17:28 Saline Flush FLUSH ASDIRECTED PRN Keep Vein Open Discontinued Medications Generic Name Dose Route Start Last Admin Trade Name Freq PRN Reason Stop Dose Admin Sodium Chloride 1,000 mls @ 500 mls/hr 08/22/16 13:00 08/22/16 13:14 Normal Saline IV 500 mls/hr ASDIRECTED [facility] Administration - Re-Assessments/Exams Free Text/Narrative Re-Assessment/Exam: 08/22/16 20:20 nausea resolved, tachycardia resolved. Pt states she is feeling better. and pt do not think that they can manage at home because of her weakness and frequent falls. She will be admitted for observation Departure - Departure Time of Disposition: 19:00 Disposition: Admitted As Inpatient 65 Clinical Impression: Dehydration, Frequent falls - Discharge Information - My Orders Last 24 Hours: My Active Orders 08/22/16 13:15 CULTURE BLOOD [BC] Stat CULTURE BLOOD [BC] Stat - Assessment/Plan Last 24 Hours: My Active Orders 08/22/16 13:15 CULTURE BLOOD [BC] Stat CULTURE BLOOD [BC] Stat
--- NOTE | 2016-08-22 16:13 | PCM.HP ---
H&P History of Present Illness - General Date of Service: 08/22/16 Admit Problem/Dx: Source of Information: Patient, Provider, RN Notes Reviewed History Limitations: Reports: No Limitations - History of Present Illness Initial Comments - Free Text/Narative: This patient is a 71-year-old woman was admitted to observation status because of progressive weakness. She has known metastatic pancreatic cancer, she has been unable to receive chemotherapy over the past month because of low blood counts. During that period of time has become progressively more weak. She's had ongoing difficulty with diarrhea, during a hospitalization earlier this month was found to have C. difficile colitis. She is completed her course of antibiotic therapy but continues to experience some diarrhea. Recently had a repeat C. difficile study done at the clinic which came back negative. She's been started on Lomotil and has noted some improvement in the diarrhea. During last 2 days it's become significantly more weak and has had 2 falls at home. Evaluation in the emergency department shows no evidence of underlying infection or other specific etiology of her progressive weakness. Back Pain Score (Numeric/FACES): 5 - Related Data Allergies/Adverse Reactions: Allergies Allergy/AdvReac Type Severity Reaction Status Date / Time hydroxychloroquine Allergy Intermediate Hives Verified 08/22/16 12:16 diclofenac [Diclofenac] Allergy Rash Verified 08/22/16 12:16 irinotecan [From Camptosar] Allergy Difficulty Verified 08/22/16 12:16 Swallowing propoxyphene Allergy Cannot Verified 08/22/16 12:16 Remember codeine AdvReac Nausea Verified 08/22/16 12:16 Sulfa (Sulfonamide AdvReac Nausea Verified 08/22/16 12:16 Antibiotics) Home Medications: Home Meds Amitriptyline [Elavil] 25 mg PO BEDTIME 12/06/12 [History] Multivitamin/Iron/Folic Acid [Centrum Complete Multivit] 1 each PO DAILY [History] Simvastatin [Zocor] 20 mg PO BEDTIME 12/06/12 [History] predniSONE 5 mg PO DAILY 12/06/12 [History] Apixaban [Eliquis] 2.5 mg PO BID 07/14/15 [History] Calcium Citrate/Vitamin D3 [Calcium Citrate-Vit D3 Tablet] 1 tab PO BID [History] Metoprolol Tartrate [Lopressor] 12.5 mg PO BID 07/14/15 [History] Potassium Chloride [Klor-Con M20] 20 meq PO DAILY 07/14/15 [History] Prochlorperazine Maleate [Compazine] 10 mg PO Q6H PRN 07/14/15 [History] Furosemide 40 mg PO DAILY 06/21/16 [History] Leflunomide 10 mg PO .Q48HR 06/21/16 [History] Omeprazole 40 mg PO DAILY 06/21/16 [History] Ondansetron [Zofran] 8 mg PO Q12HR 06/21/16 [History] Amylase/Lipase/Protease [Lyndsey DR 24,000 Unit] 2 cap PO TID 07/21/16 [History] Apixaban [Eliquis] 1 tab PO DAILY 08/22/16 [History] Hydrocodone/Acetaminophen [[place] 10-325 Tablet] 1 tab PO Q6H PRN 08/22/16 [ History] Triamcinolone Acetonide [Triamcinolone Acetonide 0.1% Oint] 1 dose PO BID [History] Past Medical History HEENT History: Reports: Impaired Vision Other HEENT History: wears glasses Cardiovascular History: Reports: Arrhythmia, High Cholesterol, Hypertension Gastrointestinal History: Reports: Chronic Diarrhea, GERD, Hemorrhoids, Other ( See Below) Other Gastrointestinal History: pancreatic cancer [employer] 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 Currently receiving Chemo although while at [place] has not received it. Dermatologic History: Reports: Other (See Below) Other Dermatologic History: skin graft to abdomen - Infectious Disease History Infectious Disease History: Reports: C-Difficile, Chicken Pox, Measles Other Infectious Disease History: states currently being treated for C-diff - Past Surgical History HEENT Surgical History: Reports: None GI Surgical History: Reports: Cholecystectomy, Colonoscopy, EGD, Other (See Below) Other GI Surgeries/Procedures: stent in bile duct, stent in liver. Female Surgical History: Reports: Hysterectomy Musculoskeletal Surgical History: Reports: Hip Replacement, Other (See Below) Other Musculoskeletal Surgeries/Procedures:: repair of broken arm Dermatological Surgical History: Reports: Skin Biopsy Social & Family History - Family History Cardiac: Reports: Heart Valve Replacement, [place] Neurological: Reports: CVA Endocrine/Metabolic: Reports: Diabetes, type II Oncologic: Reports: Breast, Cervix, Other (See Below) Other Oncologic Family History: throat cancer; skin cancer - Tobacco Use Smoking Status *Q: Never Smoker Second Hand Smoke Exposure: No - Caffeine Use Caffeine Use: Reports: None - Alcohol Use Days Per Week of Alcohol Use: 0 - Recreational Drug Use Recreational Drug Use: No H&P Review of Systems - Review of Systems: Review Of Systems: See Below General: Reports: Weakness, Fatigue. Denies: Fever, Chills, Diaphoresis HEENT: Reports: No Symptoms Pulmonary: Reports: No Symptoms Cardiovascular: Reports: No Symptoms Gastrointestinal: Reports: Diarrhea, Distension (Secondary to ascites). Denies : Abdominal Pain, Nausea, Vomiting Genitourinary: Reports: No Symptoms Musculoskeletal: Reports: Back Pain Skin: Reports: No Symptoms Psychiatric: Reports: No Symptoms Neurological: Reports: No Symptoms Hematologic/Lymphatic: Reports: No Symptoms Immunologic: Reports: No Symptoms Exam - Exam Exam: See Below - Vital Signs Vital Signs: Last Vital Signs Temp 97.3 F 08/22/16 12:13 Pulse 99 08/22/16 14:50 Resp 16 08/22/16 14:50 BP 103/66 08/22/16 15:15 Pulse Ox 97 08/22/16 14:50 Weight: 121 lb - Exam Quality Assessment: DVT Prophylaxis General: Alert, Oriented, Cooperative HEENT: Conjunctiva Clear, Hearing Intact, Mucosa Moist & [place], Normal Nasal Septum, Posterior Pharynx Clear, Pupils Equal, Pupils Reactive Neck: Supple, Trachea Midline, +2 Carotid Pulse wo Bruit Lungs: Clear to Auscultation, Normal Respiratory Effort Cardiovascular: Regular Rate, Regular Rhythm, Normal S1, Normal S2, Systolic Murmur. No: Irregular Rhythm, Bradycardia, Tachycardia, Diastolic Murmur Abdomen: Normal Bowel Sounds, Soft, Tenderness, Other (Positive fluid wave and shifting dullness). No: Organomegaly, Peritoneal Signs, Distention, Guarding, Rigidity Back Exam: Vertebral Tenderness Extremities: Edema Skin: Warm, Dry, Intact Neurological: Cranial Nerves Intact, Strength Equal Bilateral, Normal Tone, Sensation Intact. No: Focal Deficit Neuro Extensive - Mental Status: Alert, Oriented x3, Normal Mood/Affect, Normal Cognition, Memory Intact - Patient Data Lab Results last 24 hrs: Laboratory Results - last 24 hr 08/22/16 08/22/16 08/22/16 Range/Units 13:15 13:15 15:19 WBC 6.0 (4.5-11.0) K/uL RBC 2.76 L (3.30-5.50) M/uL Hgb 10.2 L (12.0-15.0) g/dL Hct 29.1 L (36.0-48.0) % MCV 105 H (80-98) fL MCH 37 H (27-31) pg MCHC 35 (32-36) % Plt Count 88 L (150-400) K/uL Neut % (Auto) 85 H (36-66) % Lymph % (Auto) 6 L (24-44) % [place] % (Auto) 8 H (2-6) % Eos % (Auto) 1 L (2-4) % Baso % (Auto) 1 (0-1) % Sodium 138 L (140-148) mmol/L Potassium 3.7 (3.6-5.2) mmol/L Chloride 103 (100-108) mmol/L Carbon Dioxide 27 (21-32) mmol/L Anion Gap 11.7 (5.0-14.0) mmol/L BUN 7 (7-18) mg/dL Creatinine 1.0 D (0.6-1.0) mg/dL Est Cr Clr Drug Dosing 44.06 mL/min Estimated GFR (MDRD) 55 L (>60) Glucose 87 (74-106) mg/dL Calcium 6.6 L* (8.5-10.1) mg/dL Total Bilirubin 1.0 D (0.2-1.0) mg/dL AST 612 H D (15-37) U/L ALT 137 H (12-78) U/L Alkaline Phosphatase 301 H (46-116) U/L Total Protein 4.3 L (6.4-8.2) g/dL Albumin 1.0 L (3.4-5.0) g/dL Globulin 3.3 (2.3-3.5) g/dL Albumin/Globulin Ratio 0.3 L (1.2-2.2) Urine Color Yellow Urine Appearance Cloudy Urine pH 5.0 (4.5-8.0) Ur Specific [place] 1.020 (1.008-1.030) Urine Protein Negative (NEGATIVE) mg/dL Urine Glucose (UA) Normal (NEGATIVE) mg/dL Urine Ketones Negative (NEGATIVE) mg/dL Urine Occult Blood Negative (NEGATIVE) Urine Nitrite Negative (NEGATIVE) Urine Bilirubin Small (NEGATIVE) Urine Urobilinogen 1 (NORMAL) mg/dL Ur Leukocyte Esterase Large (NEGATIVE) Urine RBC 0-5 (0-5) Urine WBC 75-100 H (0-5) Ur Epithelial Cells Moderate Amorphous Sediment Not seen Urine Bacteria Many Urine Mucus Few Urine Other Result Diagrams: 08/22/16 13:15 08/22/16 13:15 *Q Meaningful Use (ADM) - VTE *Q VTE Criteria *Q: VTE Pharmacological Contraindications *Q: High INR Value - VTE Risk Assess *Q Each Risk Factor Represents 1 Point: None Total Score 1 Point Risk Factors: 0 Each Risk Factor Represents 2 Points: Age 60 - 74 Years Total Score 2 Point Risk Factors: 2 Each Risk Factor Represents 3 Points: Present Cancer or Chemotherapy Total Score 3 Point Risk Factors: 3 Each Risk Factor Represents 5 Points: None Total Score 5 Point Risk Factors: 0 Venous Thromboembolism Risk Factor Score *Q: 5 - Stroke *Q Stroke Criteria *Q: - AMI *Q AMI Criteria *Q: Problem List Initiated/Reviewed/Updated: Yes Orders Last 24hrs: Active Orders 24 hr Category Date Time Status Patient Status Manage Transfer [TRANSFER] Routine ADT 08/22/16 15:33 Active CULTURE BLOOD [BC] Stat Lab 08/22/16 13:15 Received CULTURE BLOOD [BC] Stat Lab 08/22/16 13:15 Received Sodium Chloride 0.9% [Normal Saline] 1,000 ml Med 08/22/16 13:00 Active IV ASDIRECTED Resuscitation Status Routine Resus Stat 08/22/16 15:37 Ordered Medication Orders Sodium Chloride (Normal Saline) 1,000 mls @ 500 mls/hr IV ASDIRECTED [facility] Last Admin: 08/22/16 13:14 Dose: 500 mls/hr Assessment/Plan Comment:: ASSESSMENT AND PLAN WEAKNESS-likely secondary to progression of her metastatic pancreatic carcinoma. No evidence of underlying infection or significant metabolic abnormality has been identified. -Cautious IV fluids for hydration DIARRHEA-persistent despite previous treatment of C. difficile colitis. likely secondary to her underlying malignancy with early extensive intra-abdominal involvement. -Repeat stool studies for C. difficile -Lomotil twice daily and as needed METASTATIC PANCREATIC CARCINOMA-she's been unable to receive treatment over the past month because of low blood counts. During that period time has become progressively more weak and has had 2 recent falls at home. She does have a followup appointment as well as CT scan and laboratory studies this next week. -Outpatient followup and reassessment pending with oncology RHEUMATOID ARTHRITIS -Continue outpatient management MAINTENANCE ISSUES -DVT prophylaxis; continue current therapy with Beth hector which should provide adequate DVT prophylaxis -GI prophylaxis; continue outpatient PPI therapy -F[place]man catheter; not indicated -Nutrition; 2 g sodium diet -Nicotinic dependence; not required CODE STATUS-FULL CODE ADMISSION STATUS-this patient will be admitted to observation status, expect no more than a one night hospital stay for evaluation and management of problems as outlined above. DISPOSITION-anticipate discharge to home after the hospital stay. PRIMARY CARE PROVIDER-Dr. Steve
[2016-08-22] MEDS ORDERED: Sodium Chloride 0.9% 10 ML Syringe FLUSH PRN (17:28)
[2016-08-22] MEDS ORDERED: Atropine/Diphenoxylate 0.025-2.5 MG Tab PO PRN (17:28)
[2016-08-22] MEDS: Acetaminophen/HYDROcodone 325-10 MG Tab PO PRN (20:07)
[2016-08-22] MEDS ORDERED: Sodium Chloride 0.9% 1,000 ML IV STA (20:40)
[2016-08-22] MEDS ORDERED: LIPASE PO SCH (21:00)
[2016-08-22] MEDS ORDERED: PROTEASE PO SCH (21:00)
[2016-08-22] MEDS ORDERED: AMYLASE PO SCH (21:00)
[2016-08-22] MEDS: Atropine/Diphenoxylate 0.025-2.5 MG Tab PO SCH (21:34)
[2016-08-22] MEDS: AMITRIPTYLINE 25 MG PO SCH (21:34)
[2016-08-22] MEDS: SIMVASTATIN 20 MG PO SCH (21:35)
[2016-08-22] MEDS: METOPROLOL TARTRATE 25 MG PO SCH (21:35)
[2016-08-23] MEDS ORDERED: OMEPRAZOLE 40MG **PT OWN PO SCH (07:30)
[2016-08-23] MEDS ORDERED: APIXABAN 2.5 MG PO SCH (09:00)
[2016-08-23] MEDS ORDERED: Amylase/Lipase/Protease 6,000 Unit Cap.CR PO SCH (09:00)
[2016-08-23] MEDS ORDERED: Amylase/Lipase/Protease 12,000 Unit Cap.CR PO SCH (09:00)
[2016-08-23] MEDS ORDERED: Amylase/Lipase/Protease 24,000 Unit Cap.CR PO ONE (09:00)
[2016-08-23] MEDS ORDERED: Bacitracin Oint 1 GM U/D Packet ONE (10:36)
[2016-08-23] MEDS: APIXABAN 5 MG PO SCH (11:14)
[2016-08-23] MEDS: POTASSIUM CHLORIDE 20 MEQ PO SCH (11:18)
[2016-08-23] MEDS: METOPROLOL TARTRATE 25 MG PO SCH ×2 (11:19→20:52)
[2016-08-23] MEDS: Atropine/Diphenoxylate 0.025-2.5 MG Tab PO SCH ×2 (11:19→20:55)
[2016-08-23] MEDS: PREDNISONE 5 MG PO SCH (11:19)
[2016-08-23] MEDS: Ondansetron 4 MG/2 ML SDV IV PRN (12:18)
[2016-08-23] MEDS: Acetaminophen/HYDROcodone 325-10 MG Tab PO PRN ×2 (13:12→19:47)
--- NOTE | 2016-08-23 13:47 | PCM.PN ---
- General Info Date of Service: 08/23/16 Functional Status: Reports: pain controlled, urinating - Review of Systems General: Reports: Weakness. Denies: Fever, Chills Pulmonary: Reports: no symptoms Cardiovascular: Reports: No Symptoms Gastrointestinal: Reports: No symptoms Systems Review Comment:: This patient has remained stable since admission, she has been afebrile, or pressure has trended somewhat low but this is fairly normal for her. She was seen and evaluated by Dr. Mahan today who performed a paracentesis removing almost 4 L of ascitic fluid. She's feeling somewhat better since the paracentesis but remains very weak and requires assistance with transfers and ambulation. She's had no diarrhea since admission. - Patient Data Vitals - most recent: Last Vital Signs Temp 97.6 F 08/23/16 10:45 Pulse 100 08/23/16 11:29 Resp 16 08/23/16 10:45 BP 93/60 08/23/16 11:23 Pulse Ox 94 L 08/23/16 07:12 Weight - most recent: 120 lb I&O - last 24 hours: Intake & Output 08/22/16 08/23/16 08/23/16 22:59 06:59 14:59 Intake Total 1340 507 Output Total 100 Balance 1340 -100 507 Lab Results last 24 hrs: Laboratory Results - last 24 hr 08/23/16 08/23/16 Range/Units 05:00 05:00 WBC 5.9 (4.5-11.0) K/uL RBC 2.63 L (3.30-5.50) M/uL Hgb 9.5 L (12.0-15.0) g/dL Hct 27.6 L (36.0-48.0) % MCV 105 H (80-98) fL MCH 36 H (27-31) pg MCHC 34 (32-36) % Plt Count 86 L (150-400) K/uL Neut % (Auto) 78 H (36-66) % Lymph % (Auto) 11 L (24-44) % Hardin % (Auto) 9 H (2-6) % Eos % (Auto) 1 L (2-4) % Baso % (Auto) 0 (0-1) % Sodium 139 L (140-148) mmol/L Potassium 3.3 L (3.6-5.2) mmol/L Chloride 107 (100-108) mmol/L Carbon Dioxide 25 (21-32) mmol/L Anion Gap 10.3 (5.0-14.0) mmol/L BUN 6 L (7-18) mg/dL Creatinine 0.9 (0.6-1.0) mg/dL Est Cr Clr Drug Dosing 48.55 mL/min Estimated GFR (MDRD) > 60 (>60) Glucose 87 (74-106) mg/dL Calcium 6.3 L* (8.5-10.1) mg/dL Total Bilirubin 1.0 (0.2-1.0) mg/dL AST 526 H (15-37) U/L ALT 152 H (12-78) U/L Alkaline Phosphatase 307 H (46-116) U/L Total Protein 4.0 L (6.4-8.2) g/dL Albumin 0.9 L (3.4-5.0) g/dL Globulin 3.1 (2.3-3.5) g/dL Albumin/Globulin Ratio 0.3 L (1.2-2.2) Med Orders - Current: Current Medications Hydrocodone Bitart/Acetaminophen ([place] 325-10 Mg) 1 tab PO Q6H PRN PRN Reason: Pain Last Admin: 08/23/16 13:12 Dose: 1 tab Amitriptyline HCl (Elavil) 25 mg PO BEDTIME [facility] Last Admin: 08/22/16 21:34 Dose: 25 mg Lipase/Protease/Amylase (Creon Dr 24,000 Units) 2 cap PO TID [facility] Apixaban (Eliquis) 2.5 mg PO DAILY [facility] Last Admin: 08/23/16 11:14 Dose: 2.5 mg Diphenoxylate HCl/Atropine (Lomotil 0.025-2.5 Mg) 1 tab PO BID [facility] Last Admin: 08/23/16 11:19 Dose: Not Given Diphenoxylate HCl/Atropine (Lomotil 0.025-2.5 Mg) 1 tab PO TID PRN PRN Reason: Diarrhea Hydromorphone HCl (Dilaudid) 0.5 mg IVPUSH Q2H PRN PRN Reason: Pain Leflunomide (Arava) 10 mg PO Q48H [facility] Metoprolol Tartrate (Lopressor) 12.5 mg PO BID [facility] Last Admin: 08/23/16 11:19 Dose: Not Given Non-Formulary Medication (Calcium Citrate/Vitamin D3 [Calcium Citrate-Vit D3 Tablet]) 1 tab PO BID [facility] Ondansetron HCl (Zofran) 4 mg IV Q4H PRN PRN Reason: Nausea/Vomiting Last Admin: 08/23/16 12:18 Dose: 4 mg Pantoprazole Sodium (Protonix) 40 mg PO ACBREAKFAST [facility] Potassium Chloride (Klor-Con M20) 20 meq PO DAILY [facility] Last Admin: 08/23/16 11:18 Dose: Not Given Potassium Chloride (Klor-Con M20) 40 meq PO ONETIME ONE Stop: 08/23/16 13:43 Prednisone (Prednisone) 5 mg PO DAILY [facility] Last Admin: 08/23/16 11:19 Dose: Not Given Simvastatin (Zocor) 20 mg PO BEDTIME [facility] Last Admin: 08/22/16 21:35 Dose: 20 mg Sodium Chloride (Saline Flush) 10 ml FLUSH ASDIRECTED PRN PRN Reason: Keep Vein Open Discontinued Medications Lipase/Protease/Amylase (Creon Dr 24,000 Units) 2 cap PO TID [facility] Last Admin: 08/22/16 21:48 Dose: Not Given Lipase/Protease/Amylase (Creon Dr 12,000 Units) 4 cap PO TID [facility] Last Admin: 08/23/16 11:18 Dose: Not Given Bacitracin (Bacitracin Oint 1 Gm) Confirm Administered Dose 1 dose .ROUTE .STK- MED ONE Stop: 08/23/16 10:37 Last Admin: 08/23/16 11:17 Dose: 1 dose Sodium Chloride (Normal Saline) 1,000 mls @ 500 mls/hr IV ASDIRECTED [facility] Last Admin: 08/22/16 13:14 Dose: 500 mls/hr Sodium Chloride (Normal Saline) 1,000 mls @ 50 mls/hr IV ASDIRECTED [facility] Last Admin: 08/22/16 17:57 Dose: 50 mls/hr Sodium Chloride (Normal Saline) 1,000 mls @ 500 mls/hr IV NOW STA Stop: 08/22/16 22:39 Last Admin: 08/22/16 20:52 Dose: 500 mls/hr Leflunomide (Arava) 10 mg PO Q48H [facility] Last Admin: 08/22/16 21:34 Dose: Not Given Omeprazole 40mg Pt (Own) 40 each PO ACBREAKFAST [facility] Last Admin: 08/23/16 11:13 Dose: Not Given - Exam Quality Assessment: DVT prophylaxis Lungs: Clear to auscultation, Normal respiratory effort Cardiovascular: Regular Rate, Regular Rhythm, No Murmurs Abdomen: bowel sounds present, soft, no tenderness, no distension Extremities: no edema, edema Skin: warm, dry, intact - Problem List Review Problem List Initiated/Reviewed/Updated: Yes - My Orders Last 24 Hours: My Active Orders 08/22/16 15:37 Resuscitation Status Routine 08/22/16 17:28 Patient Status [ADT] Routine Intake and Output [RC] QSHIFT Notify Provider Consults [RC] ASDIRECTED Notify Provider Vital Signs [RC] ASDIRECTED Oxygen Therapy [RC] PRN Peripheral IV Care [RC] Q12H Up With Assistance [RC] ASDIRECTED VTE/DVT Education [RC] Per Unit Routine Vital Signs [RC] Q4H Consult to Physician [CONS] Routine CLOSTRIDIUM DIFFICILE BY PCR [RM] Stat Atropine/Diphenoxylate [Lomotil 0.025-2.5 MG] 1 tab PO BID Atropine/Diphenoxylate [Lomotil 0.025-2.5 MG] 1 tab PO TID PRN HYDROmorphone [Dilaudid] 0.5 mg IVPUSH Q2H PRN Ondansetron [Zofran] 4 mg IV Q4H PRN Sodium Chloride 0.9% [Saline Flush] 10 ml FLUSH ASDIRECTED PRN Peripheral IV Insertion Adult [OM.PC] Routine VTE Pharmacological Contraindications [AST] Per Unit Routine 08/22/16 20:42 Communication Order [RC] ASDIRECTED 08/23/16 08:00 US Guidance Paracentesis NC [US] Urgent 08/23/16 09:00 Apixaban [Eliquis] 2.5 mg PO DAILY 08/23/16 11:42 Convert IV to Saline Lock [OM.PC] Routine 08/23/16 11:43 Consult to Physical Therapy [PT Evaluation and Treatment] [CONS] Routine 08/23/16 11:45 Pantoprazole [ProTONIX] 40 mg PO ACBREAKFAST 08/23/16 13:42 Potassium Chloride [Klor-Con M20] 40 meq PO ONETIME ONE 08/23/16 13:45 Calcium Citrate/Vitamin D3 [Calcium Citrate-Vit D3 Tablet] 1 tab PO BID 08/23/16 14:00 Amylase/Lipase/Protease [Lyndsey LOVING 24,000 Units] 2 cap PO TID 08/24/16 09:00 Leflunomide [Arava] 10 mg PO Q48H - Plan Plan:: ASSESSMENT AND PLAN WEAKNESS-likely secondary to progression of her metastatic pancreatic carcinoma. No evidence of underlying infection or significant metabolic abnormality has been identified. -Saline lock IV -PT consult in a.m. DIARRHEA-persistent despite previous treatment of C. difficile colitis. likely secondary to her underlying malignancy with early extensive intra-abdominal involvement. She's had no significant diarrhea since admission -Repeat stool studies for C. difficile -Lomotil twice daily and as needed METASTATIC PANCREATIC CARCINOMA-she's been unable to receive treatment over the past month because of low blood counts. During that period time has become progressively more weak and has had 2 recent falls at home. She does have a followup appointment as well as CT scan and laboratory studies this next week. -Outpatient followup and reassessment pending with oncology -Feeling improved following large-volume paracentesis earlier today RHEUMATOID ARTHRITIS -Continue outpatient management MAINTENANCE ISSUES -DVT prophylaxis; continue current therapy with Beth hector which should provide adequate DVT prophylaxis -GI prophylaxis; continue outpatient PPI therapy -Feldman catheter; not indicated -Nutrition; 2 g sodium diet -Nicotinic dependence; not required CODE STATUS-FULL CODE ADMISSION STATUS-this patient will be admitted to observation status, expect no more than a one night hospital stay for evaluation and management of problems as outlined above. DISPOSITION-anticipate discharge to home after the hospital stay. PRIMARY CARE PROVIDER-Dr. Steve
[2016-08-23] MEDS ORDERED: Potassium Chloride 20 MEQ Tab.ER (PTOM) PO ONE (14:30)
[2016-08-23] MEDS: Pantoprazole 40 MG Tab.CR PO SCH (14:50)
[2016-08-23] MEDS: AMYLASE PO SCH ×2 (14:58→20:53)
[2016-08-23] MEDS: PROTEASE PO SCH ×2 (14:58→20:53)
[2016-08-23] MEDS: Calcium Carbonate/Vitamin D3 1500 MG-400 Units Tab PO SCH ×2 (14:58→20:54)
[2016-08-23] MEDS: LIPASE PO SCH ×2 (14:58→20:53)
[2016-08-23] MEDS: SIMVASTATIN 20 MG PO SCH (20:52)
[2016-08-23] MEDS: AMITRIPTYLINE 25 MG PO SCH (20:53)
[2016-08-24] MEDS: Acetaminophen/HYDROcodone 325-10 MG Tab PO PRN (05:13)
[2016-08-24] MEDS: Pantoprazole 40 MG Tab.CR PO SCH (07:07)
--- NOTE | 2016-08-24 08:00 | OR ---
DATE OF PROCEDURE: 08/22/2016 PROCEDURE: Paracentesis. FINDINGS: 3500 mL of straw-colored fluid. ANESTHESIA: Local. PREPROCEDURE DIAGNOSIS: Pancreatic cancer with ascites. COMPLICATIONS: None. [employer]ING [employer]PER[employer]OR: None. RISKS: Risks, benefits, alternatives, and limitations, including, but not limited to infection, bleeding, injury to abdominal structures and other risks not listed here. The patient understands these risks and wishes to proceed. PROCEDURE IN DETAIL: The patient was placed in a supine position. The area was previously marked by ultrasound. The skin was prepped and draped and anesthetized with lidocaine. A single ami was created in the skin. As the sheath was introduced, the needle was withdrawn. This was then hooked to a vacuum suction bottle and 3500 mL of fluid, which is straw colored, so was aspirated without difficulty. The sheath was removed. The wound was closed with 2-0 Prolene interrupted suture. Bacitracin was applied. The patient tolerated the procedure well. Hammad Mahan MD /[id number]
[2016-08-24] MEDS: Calcium Carbonate/Vitamin D3 1500 MG-400 Units Tab PO SCH ×2 (08:32→20:54)
[2016-08-24] MEDS: PROTEASE PO SCH ×3 (08:33→20:53)
[2016-08-24] MEDS: LIPASE PO SCH ×3 (08:33→20:53)
[2016-08-24] MEDS: Leflunomide 20 MG Tab PO SCH (08:33)
[2016-08-24] MEDS: AMYLASE PO SCH ×3 (08:33→20:53)
[2016-08-24] MEDS: PREDNISONE 5 MG PO SCH (08:36)
[2016-08-24] MEDS: POTASSIUM CHLORIDE 20 MEQ PO SCH (08:37)
[2016-08-24] MEDS: APIXABAN 5 MG PO SCH (08:37)
[2016-08-24] MEDS: Atropine/Diphenoxylate 0.025-2.5 MG Tab PO SCH ×2 (08:38→20:55)
[2016-08-24] MEDS: METOPROLOL TARTRATE 25 MG PO SCH (08:41)
[2016-08-24] MEDS ORDERED: LEFLUNOMIDE 10 MG PO SCH (09:00)
--- NOTE | 2016-08-24 10:40 | US ---
Images obtained for a paracentesis.
[2016-08-24] MEDS ORDERED: Iohexol 647 MG/ML 10 ML SDV PO SCH (13:45)
[2016-08-24] MEDS ORDERED: Sodium Chloride 0.9% 100 ML IV SCH (15:00)
[2016-08-24] MEDS ORDERED: Sodium Chloride 0.9% 10 ML SDV FLUSH ONE (15:00)
[2016-08-24] MEDS ORDERED: Iopamidol 612 MG/ML 100 ML Bottle IV PRN (15:00)
[2016-08-24] MEDS: Ondansetron 4 MG Tab.DIS PO PRN (16:09)
--- NOTE | 2016-08-24 18:06 | PCM.PN ---
- General Info Date of Service: 08/24/16 Functional Status: Reports: pain controlled, tolerating diet, ambulating - Review of Systems General: Reports: Weakness. Denies: Fever, Chills Pulmonary: Reports: no symptoms Cardiovascular: Reports: Edema. Denies: Chest Pain, Orthopnea, PND Gastrointestinal: Reports: No symptoms Systems Review Comment:: This patient has remained fairly stable since yesterday, blood pressure did drop this morning after she took her dose of metoprolol. CT scan was obtained of the abdomen and pelvis today it does show correction of her pancreatic carcinoma. She has remained afebrile and oral intake has been adequate - Patient Data Vitals - most recent: Last Vital Signs Temp 97.6 F 08/24/16 14:38 Pulse 90 08/24/16 14:38 Resp 18 08/24/16 14:38 BP 100/68 08/24/16 14:38 Pulse Ox 94 L 08/24/16 14:38 Weight - most recent: 119 lb 15.997 oz I&O - last 24 hours: Intake & Output 08/24/16 08/24/16 08/24/16 06:59 14:59 22:59 Intake Total 240 600 Output Total 200 Balance 40 600 Flavio Results last 24 hrs: Microbiology 08/22/16 16:00 Urine Culture - Preliminary Urine, Clean Catch MIXED ALEXANDRO DAY 1 Med Orders - Current: Current Medications Hydrocodone Bitart/Acetaminophen ([place] 325-10 Mg) 1 tab PO Q6H PRN PRN Reason: Pain Last Admin: 08/24/16 05:13 Dose: 1 tab Amitriptyline HCl (Elavil) 25 mg PO BEDTIME [facility] Last Admin: 08/23/16 20:53 Dose: 25 mg Lipase/Protease/Amylase (Creon Dr 24,000 Units) 2 cap PO TID [facility] Last Admin: 08/24/16 16:20 Dose: Not Given Apixaban (Eliquis) 2.5 mg PO DAILY [facility] Last Admin: 08/24/16 08:37 Dose: 2.5 mg Calcium Carbonate (Caltrate 600+D 1500 Mg-400 Units) 1 tab PO BID [facility] Last Admin: 08/24/16 08:32 Dose: 1 tab Diphenoxylate HCl/Atropine (Lomotil 0.025-2.5 Mg) 1 tab PO BID [facility] Last Admin: 08/24/16 08:38 Dose: Not Given Diphenoxylate HCl/Atropine (Lomotil 0.025-2.5 Mg) 1 tab PO TID PRN PRN Reason: Diarrhea Heparin Sodium (Porcine) (Heparin Lock Flush 100 Units/Ml Syringe) 500 units FLUSH ASDIRECTED PRN PRN Reason: Keep Vein Open Hydromorphone HCl (Dilaudid) 0.5 mg IVPUSH Q2H PRN PRN Reason: Pain Sodium Chloride (Normal Saline) 100 mls @ 3.5 mls/sec IV ASDIRECTED [facility] Stop: 08/24/16 23:00 Last Admin: 08/24/16 16:18 Dose: 2 mls/sec Iohexol (Omnipaque-300) 10 ml PO . DIRECTED [facility] Last Admin: 08/24/16 14:09 Dose: 10 ml Iopamidol (Isovue-300 (61%)) 100 ml IV . DIRECTED PRN PRN Reason: RADIOLOGY EXAM Stop: 08/25/16 15:01 Last Admin: 08/24/16 16:17 Dose: 81 ml Leflunomide (Arava) 10 mg PO Q48H [facility] Last Admin: 08/24/16 08:33 Dose: 10 mg Ondansetron HCl (Zofran) 4 mg IV Q4H PRN PRN Reason: Nausea/Vomiting Last Admin: 08/23/16 12:18 Dose: 4 mg Ondansetron HCl (Zofran Odt) 4 mg PO Q4H PRN PRN Reason: Nausea/Vomiting Last Admin: 08/24/16 16:09 Dose: 4 mg Pantoprazole Sodium (Protonix) 40 mg PO ACBREAKFAST [facility] Last Admin: 08/24/16 07:07 Dose: 40 mg Potassium Chloride (Klor-Con M20) 20 meq PO DAILY [facility] Last Admin: 08/24/16 08:37 Dose: 20 meq Prednisone (Prednisone) 5 mg PO DAILY [facility] Last Admin: 08/24/16 08:36 Dose: 5 mg Simvastatin (Zocor) 20 mg PO BEDTIME [facility] Last Admin: 08/23/16 20:52 Dose: 20 mg Sodium Chloride (Saline Flush) 10 ml FLUSH ASDIRECTED PRN PRN Reason: Keep Vein Open Discontinued Medications Lipase/Protease/Amylase (Creon Dr 24,000 Units) 2 cap PO TID [facility] Last Admin: 08/22/16 21:48 Dose: Not Given Lipase/Protease/Amylase (Lyndsey Campo 12,000 Units) 4 cap PO TID [facility] Last Admin: 08/23/16 11:18 Dose: Not Given Bacitracin (Bacitracin Oint 1 Gm) Confirm Administered Dose 1 dose .ROUTE .K- [facility] ONE Stop: 08/23/16 10:37 Last Admin: 08/23/16 11:17 Dose: 1 dose Heparin Sodium (Porcine) (Heparin Lock Flush 100 Units/Ml Syringe) Confirm Administered Dose 500 units .ROUTE .STK-MED ONE Stop: 08/23/16 14:24 Last Admin: 08/23/16 14:55 Dose: 250 units Sodium Chloride (Normal Saline) 1,000 mls @ 500 mls/hr IV ASDIRECTED [facility] Last Admin: 08/22/16 13:14 Dose: 500 mls/hr Sodium Chloride (Normal Saline) 1,000 mls @ 50 mls/hr IV ASDIRECTED [facility] Last Admin: 08/22/16 17:57 Dose: 50 mls/hr Sodium Chloride (Normal Saline) 1,000 mls @ 500 mls/hr IV NOW STA Stop: 08/22/16 22:39 Last Admin: 08/22/16 20:52 Dose: 500 mls/hr Leflunomide (Arava) 10 mg PO Q48H [facility] Last Admin: 08/22/16 21:34 Dose: Not Given Metoprolol Tartrate (Lopressor) 12.5 mg PO BID [facility] Last Admin: 08/24/16 08:41 Dose: 12.5 mg Omeprazole 40mg Pt (Own) 40 each PO ACBREAKFAST [facility] Last Admin: 08/23/16 11:13 Dose: Not Given Potassium Chloride (Klor-Con M20) 40 meq PO ONETIME ONE Stop: 08/23/16 14:31 Last Admin: 08/23/16 14:59 Dose: 40 meq Sodium Chloride (Normal Saline) 10 ml FLUSH ONETIME ONE Stop: 08/24/16 15:01 Last Admin: 08/24/16 16:19 Dose: Not Given - Exam Quality Assessment: DVT prophylaxis General: alert, oriented, cooperative Lungs: Clear to auscultation, Normal respiratory effort Cardiovascular: Regular Rate, Regular Rhythm, No Murmurs Abdomen: bowel sounds present, soft, no tenderness, no distension Extremities: edema Skin: warm, dry, intact - Problem List Review Problem List Initiated/Reviewed/Updated: Yes - My Orders Last 24 Hours: My Active Orders 08/24/16 07:21 Heparin Sodium [Heparin Lock Flush 100 Units/ML Syringe] 500 units FLUSH ASDIRECTED PRN 08/24/16 09:00 Leflunomide [Arava] 10 mg PO Q48H 08/24/16 12:33 Abdomen Pelvis w Cont [CT] Stat 08/24/16 13:45 Iohexol [Omnipaque-300] 10 ml PO . DIRECTED 08/24/16 15:00 Iopamidol [Isovue-300 (61%)] 100 ml IV . DIRECTED PRN Sodium Chloride 0.9% [Normal Saline] 100 ml IV ASDIRECTED 08/24/16 15:59 Ondansetron [Zofran ODT] 4 mg PO Q4H PRN - Plan Plan:: ASSESSMENT AND PLAN WEAKNESS-likely secondary to progression of her metastatic pancreatic carcinoma. No evidence of underlying infection or significant metabolic abnormality has been identified. -Saline lock IV -PT consult DIARRHEA-persistent despite previous treatment of C. difficile colitis. likely secondary to her underlying malignancy with early extensive intra-abdominal involvement. She's had no significant diarrhea since admission -Repeat stool studies for C. difficile were negative -Lomotil twice daily and as needed METASTATIC PANCREATIC CARCINOMA-she's been unable to receive treatment over the past month because of low blood counts. During that period time has become progressively more weak and has had 2 recent falls at home. CT scan obtained today in anticipation of followup with oncology tomorrow do show progression of her pancreatic carcinoma. -Outpatient followup and reassessment with oncology tomorrow -Ascites stable following large volume paracentesis yesterday RHEUMATOID ARTHRITIS -Continue outpatient management MAINTENANCE ISSUES -DVT prophylaxis; continue current therapy with Beth hector which should provide adequate DVT prophylaxis -GI prophylaxis; continue outpatient PPI therapy -Feldman catheter; not indicated -Nutrition; 2 g sodium diet -Nicotinic dependence; not required CODE STATUS-FULL CODE ADMISSION STATUS-this patient will be admitted to observation status, expect no more than a one night hospital stay for evaluation and management of problems as outlined above. DISPOSITION-anticipate discharge to home after the hospital stay. PRIMARY CARE PROVIDER-Dr. Steve
[2016-08-24] MEDS: Ondansetron 4 MG/2 ML SDV IV PRN (18:10)
[2016-08-24] MEDS: AMITRIPTYLINE 25 MG PO SCH (20:54)
[2016-08-24] MEDS: SIMVASTATIN 20 MG PO SCH (20:55)
[2016-08-25] MEDS: Ondansetron 4 MG Tab.DIS PO PRN (00:08)
[2016-08-25] MEDS: Ondansetron 4 MG/2 ML SDV IV PRN ×2 (04:02→12:01)
[2016-08-25] MEDS ORDERED: Sodium Chloride 0.9% 500 ML IV ONE (06:01)
--- NOTE | 2016-08-25 09:32 | PCM.SN ---
- Free Text/Narrative Note: time 05:40 am; Mrs. Trinidad was being assisted to bedside commode, when she had a syncope event, went completely white, straighten legs, twitched, then went limp. total assist back to bed. call to come an exam Mr. Trinidad. S; Mrs. Trinidad complaints of feeling dizzy and weak. denies chest pain or shortness of breath O; vital stable, blood pressure 100/70 pulse 100 appear chronically ill, pallor, lungs clear no wheezing, rhonchi or crackles, heart s1s2 no murmur, abdomen is tender to exam A; pancreatic cancer with syncope event P; order for IV bolus of NS 240ml x2 hours. re-assess. continue with present plan of care.
[2016-08-25] MEDS: AMYLASE PO SCH ×3 (11:26→20:55)
[2016-08-25] MEDS: PROTEASE PO SCH ×3 (11:26→20:55)
[2016-08-25] MEDS: LIPASE PO SCH ×3 (11:26→20:55)
[2016-08-25] MEDS: Pantoprazole 40 MG Tab.CR PO SCH (11:26)
[2016-08-25] MEDS: Calcium Carbonate/Vitamin D3 1500 MG-400 Units Tab PO SCH ×2 (11:26→20:55)
[2016-08-25] MEDS: Atropine/Diphenoxylate 0.025-2.5 MG Tab PO SCH ×2 (11:27→20:54)
[2016-08-25] MEDS: POTASSIUM CHLORIDE 20 MEQ PO SCH (11:27)
[2016-08-25] MEDS: PREDNISONE 5 MG PO SCH (11:27)
[2016-08-25] MEDS: APIXABAN 5 MG PO SCH (11:27)
[2016-08-25] MEDS: HYDROmorphone 0.5 MG/0.5 ML Syringe IVPUSH PRN ×2 (12:01→14:50)
[2016-08-25] MEDS: Sodium Chloride 0.9% 1,000 ML IV SCH ×2 (12:04→21:50)
--- NOTE | 2016-08-25 15:39 | PCM.PN ---
- General Info Date of Service: 08/25/16 Functional Status: Reports: pain controlled - Review of Systems General: Reports: Weakness. Denies: Fever, Chills Pulmonary: Reports: no symptoms Cardiovascular: Reports: No Symptoms Gastrointestinal: Reports: Abdominal pain, Decreased appetite, Nausea, Vomiting. Denies: Constipation, Diarrhea Systems Review Comment:: This patient has had ongoing difficulty with lightheadedness and orthostasis over the past 24 hours. In addition she has had difficulty with persistent nausea and vomiting. CT scan was obtained yesterday shows progression of her pancreatic cancer since last scan only a month and a half ago. I reviewed her case with her oncologist Dr. Sadler, she feels that there is no further treatment that could be offered to the patient concerning her metastatic pancreatic carcinoma. I discussed this with the patient and at the present time she would like to change her status to DNR/DNI comfort cares only. She will be discharged to [facility] tomorrow with her Medicare benefits. After they run out she is interested in pursuing hospice care. - Patient Data Vitals - most recent: Last Vital Signs Temp 98.8 F 08/25/16 14:56 Pulse 133 H 08/25/16 09:10 Resp 20 08/25/16 14:56 BP 75/52 L 08/25/16 14:56 Pulse Ox 92 L 08/25/16 08:40 Weight - most recent: 119 lb 15.997 oz I&O - last 24 hours: Intake & Output 08/25/16 08/25/16 08/25/16 06:59 14:59 22:59 Intake Total 250 Output Total 50 300 Balance 200 -300 Lab Results last 24 hrs: Laboratory Results - last 24 hr 08/25/16 08/25/16 Range/Units 08:47 08:47 WBC 5.3 (4.5-11.0) K/uL RBC 2.91 L (3.30-5.50) M/uL Hgb 10.6 L (12.0-15.0) g/dL Hct 30.1 L (36.0-48.0) % MCV 103 H (80-98) fL MCH 36 H (27-31) pg MCHC 35 (32-36) % Plt Count 92 L (150-400) K/uL Neut % (Auto) 80 H (36-66) % Lymph % (Auto) 10 L (24-44) % [place] % (Auto) 10 H (2-6) % Eos % (Auto) 0 L (2-4) % Baso % (Auto) 0 (0-1) % Sodium 137 L (140-148) mmol/L Potassium 4.8 (3.6-5.2) mmol/L Chloride 107 (100-108) mmol/L Carbon Dioxide 24 (21-32) mmol/L Anion Gap 10.8 (5.0-14.0) mmol/L BUN 6 L (7-18) mg/dL Creatinine 1.1 H (0.6-1.0) mg/dL Est Cr Clr Drug Dosing 39.72 mL/min Estimated GFR (MDRD) 49 L (>60) Glucose 53 L (74-106) mg/dL Calcium 7.4 L D (8.5-10.1) mg/dL Total Bilirubin 1.0 (0.2-1.0) mg/dL AST 82 H D (15-37) U/L ALT 74 (12-78) U/L Alkaline Phosphatase 320 H (46-116) U/L Total Protein 4.4 L (6.4-8.2) g/dL Albumin 0.7 L (3.4-5.0) g/dL Globulin 3.7 H (2.3-3.5) g/dL Albumin/Globulin Ratio 0.2 L (1.2-2.2) Med Orders - Current: Current Medications Hydrocodone Bitart/Acetaminophen ([place] 325-10 Mg) 1 tab PO Q6H PRN PRN Reason: Pain Last Admin: 08/24/16 05:13 Dose: 1 tab Amitriptyline HCl (Elavil) 25 mg PO BEDTIME [facility] Last Admin: 08/24/16 20:54 Dose: 25 mg Lipase/Protease/Amylase (Creon Dr 24,000 Units) 2 cap PO TID [facility] Last Admin: 08/25/16 14:51 Dose: Not Given Apixaban (Eliquis) 2.5 mg PO DAILY [facility] Last Admin: 08/25/16 11:27 Dose: Not Given Calcium Carbonate (Caltrate 600+D 1500 Mg-400 Units) 1 tab PO BID [facility] Last Admin: 08/25/16 11:26 Dose: Not Given Diphenoxylate HCl/Atropine (Lomotil 0.025-2.5 Mg) 1 tab PO BID [facility] Last Admin: 08/25/16 11:27 Dose: Not Given Diphenoxylate HCl/Atropine (Lomotil 0.025-2.5 Mg) 1 tab PO TID PRN PRN Reason: Diarrhea Heparin Sodium (Porcine) (Heparin Lock Flush 100 Units/Ml Syringe) 500 units FLUSH ASDIRECTED PRN PRN Reason: Keep Vein Open Last Admin: 08/25/16 09:57 Dose: 500 units Hydromorphone HCl (Dilaudid) 0.5 mg IVPUSH Q2H PRN PRN Reason: Pain Last Admin: 08/25/16 14:50 Dose: 0.5 mg Sodium Chloride (Normal Saline) 1,000 mls @ 100 mls/hr IV ASDIRECTED [facility] Last Admin: 08/25/16 12:04 Dose: 100 mls/hr Iohexol (Omnipaque-300) 10 ml PO . DIRECTED [facility] Last Admin: 08/24/16 14:09 Dose: 10 ml Leflunomide (Arava) 10 mg PO Q48H [facility] Last Admin: 08/24/16 08:33 Dose: 10 mg Lorazepam (Ativan Oral Concentrate 1mg/0.5 Ml U/D) 0.5 mg BUCCAL Q2H PRN PRN Reason: Anxiety Morphine Sulfate (Morphine 10 Mg/0.5 Ml Oral Syringe) 5 - 10 mg PO Q1H PRN PRN Reason: Pain Ondansetron HCl (Zofran) 4 mg IV Q4H PRN PRN Reason: Nausea/Vomiting Last Admin: 08/25/16 12:01 Dose: 4 mg Ondansetron HCl (Zofran Odt) 4 mg PO Q4H PRN PRN Reason: Nausea/Vomiting Last Admin: 08/25/16 00:08 Dose: 4 mg Pantoprazole Sodium (Protonix) 40 mg PO ACBREAKFAST [facility] Last Admin: 08/25/16 11:26 Dose: Not Given Potassium Chloride (Klor-Con M20) 20 meq PO DAILY [facility] Last Admin: 08/25/16 11:27 Dose: Not Given Prednisone (Prednisone) 5 mg PO DAILY [facility] Last Admin: 08/25/16 11:27 Dose: Not Given Simvastatin (Zocor) 20 mg PO BEDTIME [facility] Last Admin: 08/24/16 20:55 Dose: 20 mg Sodium Chloride (Saline Flush) 10 ml FLUSH ASDIRECTED PRN PRN Reason: Keep Vein Open Last Admin: 08/25/16 14:50 Dose: 10 ml Discontinued Medications Lipase/Protease/Amylase (Creon Dr 24,000 Units) 2 cap PO TID [facility] Last Admin: 08/22/16 21:48 Dose: Not Given Lipase/Protease/Amylase (Creon Dr 12,000 Units) 4 cap PO TID [facility] Last Admin: 08/23/16 11:18 Dose: Not Given Bacitracin (Bacitracin Oint 1 Gm) Confirm Administered Dose 1 dose .ROUTE .STK- MED ONE Stop: 08/23/16 10:37 Last Admin: 08/23/16 11:17 Dose: 1 dose Heparin Sodium (Porcine) (Heparin Lock Flush 100 Units/Ml Syringe) Confirm Administered Dose 500 units .ROUTE .STK-MED ONE Stop: 08/23/16 14:24 Last Admin: 08/23/16 14:55 Dose: 250 units Sodium Chloride (Normal Saline) 1,000 mls @ 500 mls/hr IV ASDIRECTED [facility] Last Admin: 08/22/16 13:14 Dose: 500 mls/hr Sodium Chloride (Normal Saline) 1,000 mls @ 50 mls/hr IV ASDIRECTED [facility] Last Admin: 08/22/16 17:57 Dose: 50 mls/hr Sodium Chloride (Normal Saline) 1,000 mls @ 500 mls/hr IV NOW STA Stop: 08/22/16 22:39 Last Admin: 08/22/16 20:52 Dose: 500 mls/hr Sodium Chloride (Normal Saline) 100 mls @ 3.5 mls/sec IV ASDIRECTED [facility] Stop: 08/24/16 23:00 Last Admin: 08/24/16 16:18 Dose: 2 mls/sec Sodium Chloride (Normal Saline) 500 mls @ 250 mls/hr IV .BOLUS ONE Stop: 08/25/16 08:00 Last Admin: 08/25/16 06:13 Dose: 250 mls/hr Iopamidol (Isovue-300 (61%)) 100 ml IV . DIRECTED PRN PRN Reason: RADIOLOGY EXAM Stop: 08/25/16 15:01 Last Admin: 08/24/16 16:17 Dose: 81 ml Leflunomide (Arava) 10 mg PO Q48H [facility] Last Admin: 08/22/16 21:34 Dose: Not Given Metoprolol Tartrate (Lopressor) 12.5 mg PO BID [facility] Last Admin: 08/24/16 08:41 Dose: 12.5 mg Omeprazole 40mg Pt (Own) 40 each PO ACBREAKFAST [facility] Last Admin: 08/23/16 11:13 Dose: Not Given Potassium Chloride (Klor-Con M20) 40 meq PO ONETIME ONE Stop: 08/23/16 14:31 Last Admin: 08/23/16 14:59 Dose: 40 meq Sodium Chloride (Normal Saline) 10 ml FLUSH ONETIME ONE Stop: 08/24/16 15:01 Last Admin: 08/24/16 16:19 Dose: Not Given - Exam Quality Assessment: DVT prophylaxis General: alert, oriented, cooperative, mild distress Lungs: Clear to auscultation, Normal respiratory effort Cardiovascular: Regular Rate, Regular Rhythm, No Murmurs Abdomen: bowel sounds present, soft, no distension, tenderness Extremities: edema Skin: warm, dry, intact - Problem List Review Problem List Initiated/Reviewed/Updated: Yes - My Orders Last 24 Hours: My Active Orders 08/25/16 05:30 Patient Status [ADT] Routine 08/25/16 11:45 Sodium Chloride 0.9% [Normal Saline] 1,000 ml IV ASDIRECTED 08/25/16 15:27 Morphine [Morphine 10 MG/0.5 ML Oral Syringe] 5 - 10 mg PO Q1H PRN 08/25/16 15:28 LORazepam [Ativan ORAL Concentrate 1MG/0.5 ML U/D] 0.5 mg BUCCAL Q2H PRN - Plan Plan:: ASSESSMENT AND PLAN WEAKNESS-likely secondary to progression of her metastatic pancreatic carcinoma. No evidence of underlying infection or significant metabolic abnormality has been identified. DIARRHEA-significantly improved since admission with current management -Repeat stool studies for C. difficile were negative -Lomotil twice daily and as needed METASTATIC PANCREATIC CARCINOMA-status reviewed with the patient's oncologist Dr. Sadler, at the present time there is no option for further treatment. Dr. Sadler is in agreement with proceeding with comfort cares and move towards hospice -Ascites stable following large volume paracentesis RHEUMATOID ARTHRITIS -Continue outpatient management MAINTENANCE ISSUES -DVT prophylaxis; continue current therapy with Beth was which should provide adequate DVT prophylaxis -GI prophylaxis; continue outpatient PPI therapy -Feldman catheter; not indicated -Nutrition; 2 g sodium diet -Nicotinic dependence; not required CODE STATUS-DNR/DNI, COMFORT CARES ONLY ADMISSION STATUS-this patient will be admitted to observation status, expect no more than a one night hospital stay for evaluation and management of problems as outlined above. DISPOSITION-anticipate discharge to home after the hospital stay. PRIMARY CARE PROVIDER-Dr. Steve
[2016-08-25] MEDS: LORazepam ORAL Concentrate 1MG/0.5ML U/D BUCCAL PRN ×2 (15:47→20:07)
[2016-08-25] MEDS: Morphine 10 MG/0.5 ML Oral Syringe PO PRN ×3 (15:47→20:10)
[2016-08-25] MEDS: AMITRIPTYLINE 25 MG PO SCH (20:53)
[2016-08-25] MEDS: SIMVASTATIN 20 MG PO SCH (20:54)
[2016-08-26 05:12] VITALS: BP 62/42
[2016-08-26] MEDS: Sodium Chloride 0.9% 1,000 ML IV SCH (07:22)
[2016-08-26] MEDS: Morphine 10 MG/0.5 ML Oral Syringe PO PRN ×2 (08:35→12:48)
[2016-08-26] MEDS: Ondansetron 4 MG/2 ML SDV IV PRN (08:36)
[2016-08-26] MEDS: Pantoprazole 40 MG Tab.CR PO SCH (08:53)
[2016-08-26] MEDS: Calcium Carbonate/Vitamin D3 1500 MG-400 Units Tab PO SCH (10:32)
[2016-08-26] MEDS: Leflunomide 20 MG Tab PO SCH (10:32)
[2016-08-26] MEDS: Atropine/Diphenoxylate 0.025-2.5 MG Tab PO SCH (10:32)
[2016-08-26] MEDS: AMYLASE PO SCH (10:33)
[2016-08-26] MEDS: LIPASE PO SCH (10:33)
[2016-08-26] MEDS: APIXABAN 5 MG PO SCH (10:33)
[2016-08-26] MEDS: POTASSIUM CHLORIDE 20 MEQ PO SCH (10:33)
[2016-08-26] MEDS: PROTEASE PO SCH (10:33)
[2016-08-26] MEDS: PREDNISONE 5 MG PO SCH (10:34)
--- NOTE | 2016-08-26 12:50 | PCM.DCSUM1 ---
Discharge Summary - Hospital Course Brief History: This patient is a 71-year-old woman with known metastatic pancreatic cancer, admitted through the emergency department to observation status with progressive weakness, dehydration, and diarrhea. - Discharge Data Discharge Date: 08/26/16 Discharge Disposition: DC/Tfer to SNF 03 Condition: Poor - Discharge Diagnosis/Problem(s) (1) Frequent falls SNOMED Code(s): 700927221 ICD Code: R29.6 - REPEATED FALLS Status: Acute Current Visit: Yes (2) Pancreatic cancer SNOMED Code(s): 437198811 ICD Code: C25.9 - MALIGNANT NEOPLASM OF PANCREAS, UNSPECIFIED Status: Chronic Current Visit: No Problem Details: Recurrent, suspect second primary pancreatic cancer Qualifiers: Pancreatic malignancy location: tail of pancreas Qualified Code(s): C25.2 - Malignant neoplasm of tail of pancreas (3) Rheumatoid arthritis SNOMED Code(s): 37664058 ICD Code: M06.9 - RHEUMATOID ARTHRITIS, UNSPECIFIED Status: Chronic Current Visit: No - Patient Summary/Data Hospital Course: This patient is a 71-year-old woman who has known pancreatic carcinoma, this is a recurrence of previous carcinoma with metastatic disease. She has been receiving daily chemotherapy, treatment has been held over the past month because of low blood counts. During that period time has had some ongoing difficulty with diarrhea, she did have a previous hospitalization about a month ago for Clostridium difficile colitis. Because of persistent diarrhea an outpatient C. difficile study had been done that was negative. She was felt to be dehydrated on admission and very weak having suffered 2 falls at home in the previous 24 hours. She was admitted to the hospital and given IV fluids for hydration. Repeat stool for C. difficile was negative and her diarrhea was well -controlled through the rest of her hospital stay using scheduled Lomotil. Remains very weak and did have significant ascites, she was seen by Dr. Mahan who performed a large volume her centesis of 4 L. Despite this her oral intake was poor and she had ongoing difficulty with nausea and vomiting. CT scan was obtained and showed progression of her metastatic cancer. I did review these findings with her oncologist Dr. Sadler, Dr. Sadler felt that there was no further possibility of treatment and recommended hospice care. A review these findings and recommendations with the patient and her and she has decided to change her CODE STATUS to DO NOT RESUSCITATE DO NOT INTUBATE and will be on comfort cares only. She understands that she will receive medication for comfort but there will be no further aggressive interventions or evaluations and no further hospitalizations. She will be discharged to halfway with liquid morphine as well as lorazepam for comfort. Activity will be as tolerated and diet will be as tolerated as well. - Patient Instructions Diet: Usual Diet as Tolerated Activity: As Tolerated Other/Special Instructions: DNR/DNI, comfort cares only - Discharge Plan Prescriptions/Med Rec: LORazepam [Ativan ORAL Concentrate 1MG/0.5 ML U/D] 0.5 mg BUCCAL Q2H PRN #30 ml PRN Reason: Agitation Morphine [Morphine 10 MG/0.5 ML Oral Syringe] 5 mg PO Q1H PRN #30 ml PRN Reason: Pain Ondansetron [Zofran ODT] 4 mg SL Q4H PRN #20 tab.dis PRN Reason: Nausea Home Medications: Home Meds predniSONE 5 mg PO DAILY 12/06/12 [History] Potassium Chloride [Klor-Con M20] 20 meq PO DAILY 07/14/15 [History] Omeprazole 40 mg PO DAILY 06/21/16 [History] Amylase/Lipase/Protease [Lyndsey LOVING 24,000 Unit] 2 cap PO TID 07/21/16 [History] LORazepam [Ativan ORAL Concentrate 1MG/0.5 ML U/D] 0.5 mg BUCCAL Q2H PRN #30 ml 08/26/16 [Rx] Morphine [Morphine 10 MG/0.5 ML Oral Syringe] 5 mg PO Q1H PRN #30 ml 08/26/16 [ Rx] Ondansetron [Zofran ODT] 4 mg SL Q4H PRN #20 tab.dis 08/26/16 [Rx] Referrals: PCP,None [Primary Care Provider] - - Patient Data Vitals - Most Recent: Last Vital Signs Temp 98.6 F 08/26/16 05:08 Pulse 130 H 08/26/16 05:08 Resp 18 08/26/16 05:08 BP 62/42 L 08/26/16 05:08 Pulse Ox 100 08/26/16 00:00 Weight - Most Recent: 119 lb 15.997 oz I&O - Last 24 hours: Intake & Output 08/25/16 08/26/16 08/26/16 22:59 06:59 14:59 Intake Total 550 1148 533 Output Total 50 Balance 500 1148 533 Med Orders - Current: Current Medications Hydrocodone Bitart/Acetaminophen ([place] 325-10 Mg) 1 tab PO Q6H PRN PRN Reason: Pain Last Admin: 08/24/16 05:13 Dose: 1 tab Amitriptyline HCl (Elavil) 25 mg PO BEDTIME [facility] Lipase/Protease/Amylase (Creon Dr 12,000 Units) 4 cap PO TID [facility] Apixaban (Eliquis) 2.5 mg PO DAILY [facility] Calcium Carbonate (Caltrate 600+D 1500 Mg-400 Units) 1 tab PO BID [facility] Last Admin: 08/26/16 10:32 Dose: Not Given Diphenoxylate HCl/Atropine (Lomotil 0.025-2.5 Mg) 1 tab PO BID [facility] Last Admin: 08/26/16 10:32 Dose: Not Given Diphenoxylate HCl/Atropine (Lomotil 0.025-2.5 Mg) 1 tab PO TID PRN PRN Reason: Diarrhea Heparin Sodium (Porcine) (Heparin Lock Flush 100 Units/Ml Syringe) 500 units FLUSH ASDIRECTED PRN PRN Reason: Keep Vein Open Last Admin: 08/26/16 12:41 Dose: 500 units Hydromorphone HCl (Dilaudid) 0.5 mg IVPUSH Q2H PRN PRN Reason: Pain Last Admin: 08/25/16 14:50 Dose: 0.5 mg Sodium Chloride (Normal Saline) 1,000 mls @ 100 mls/hr IV ASDIRECTED [facility] Last Admin: 08/26/16 07:22 Dose: 100 mls/hr Leflunomide (Arava) 10 mg PO Q48H [facility] Last Admin: 08/26/16 10:32 Dose: Not Given Lorazepam (Ativan Oral Concentrate 1mg/0.5 Ml U/D) 0.5 mg BUCCAL Q2H PRN PRN Reason: Anxiety Last Admin: 08/25/16 20:07 Dose: 0.5 mg Morphine Sulfate (Morphine 10 Mg/0.5 Ml Oral Syringe) 5 - 10 mg PO Q1H PRN PRN Reason: Pain Last Admin: 08/26/16 08:35 Dose: 10 mg Ondansetron HCl (Zofran) 4 mg IV Q4H PRN PRN Reason: Nausea/Vomiting Last Admin: 08/26/16 08:36 Dose: 4 mg Ondansetron HCl (Zofran Odt) 4 mg PO Q4H PRN PRN Reason: Nausea/Vomiting Last Admin: 08/25/16 00:08 Dose: 4 mg Pantoprazole Sodium (Protonix) 40 mg PO ACBREAKFAST [facility] Last Admin: 08/26/16 08:53 Dose: Not Given Potassium Chloride (Klor-Con M20) 20 meq PO DAILY@0800 [facility] Prednisone (Prednisone) 5 mg PO DAILY@0800 [facility] Simvastatin (Zocor) 20 mg PO BEDTIME [facility] Sodium Chloride (Saline Flush) 10 ml FLUSH ASDIRECTED PRN PRN Reason: Keep Vein Open Last Admin: 08/25/16 14:50 Dose: 10 ml Discontinued Medications Amitriptyline HCl (Elavil) 25 mg PO BEDTIME [facility] Last Admin: 08/25/16 20:53 Dose: 25 mg Lipase/Protease/Amylase (Creon Dr 24,000 Units) 2 cap PO TID [facility] Last Admin: 08/22/16 21:48 Dose: Not Given Lipase/Protease/Amylase (Creon Dr 12,000 Units) 4 cap PO TID [facility] Last Admin: 08/23/16 11:18 Dose: Not Given Lipase/Protease/Amylase (Creon Dr 24,000 Units) 2 cap PO TID [facility] Last Admin: 08/26/16 10:33 Dose: Not Given Apixaban (Eliquis) 2.5 mg PO DAILY [facility] Last Admin: 08/26/16 10:33 Dose: Not Given Bacitracin (Bacitracin Oint 1 Gm) Confirm Administered Dose 1 dose .ROUTE .[facility]- MED ONE Stop: 08/23/16 10:37 Last Admin: 08/23/16 11:17 Dose: 1 dose Heparin Sodium (Porcine) (Heparin Lock Flush 100 Units/Ml Syringe) Confirm Administered Dose 500 units .ROUTE .STK-MED ONE Stop: 08/23/16 14:24 Last Admin: 08/23/16 14:55 Dose: 250 units Sodium Chloride (Normal Saline) 1,000 mls @ 500 mls/hr IV ASDIRECTED [facility] Last Admin: 08/22/16 13:14 Dose: 500 mls/hr Sodium Chloride (Normal Saline) 1,000 mls @ 50 mls/hr IV ASDIRECTED [facility] Last Admin: 08/22/16 17:57 Dose: 50 mls/hr Sodium Chloride (Normal Saline) 1,000 mls @ 500 mls/hr IV NOW STA Stop: 08/22/16 22:39 Last Admin: 08/22/16 20:52 Dose: 500 mls/hr Sodium Chloride (Normal Saline) 100 mls @ 3.5 mls/sec IV ASDIRECTED [facility] Stop: 08/24/16 23:00 Last Admin: 08/24/16 16:18 Dose: 2 mls/sec Sodium Chloride (Normal Saline) 500 mls @ 250 mls/hr IV .BOLUS ONE Stop: 08/25/16 08:00 Last Admin: 08/25/16 06:13 Dose: 250 mls/hr Iohexol (Omnipaque-300) 10 ml PO . DIRECTED [facility] Last Admin: 08/24/16 14:09 Dose: 10 ml Iopamidol (Isovue-300 (61%)) 100 ml IV . DIRECTED PRN PRN Reason: RADIOLOGY EXAM Stop: 08/25/16 15:01 Last Admin: 08/24/16 16:17 Dose: 81 ml Leflunomide (Arava) 10 mg PO Q48H [facility] Last Admin: 08/22/16 21:34 Dose: Not Given Metoprolol Tartrate (Lopressor) 12.5 mg PO BID [facility] Last Admin: 08/24/16 08:41 Dose: 12.5 mg Omeprazole 40mg Pt (Own) 40 each PO ACBREAKFAST [facility] Last Admin: 08/23/16 11:13 Dose: Not Given Potassium Chloride (Klor-Con M20) 20 meq PO DAILY [facility] Last Admin: 08/26/16 10:33 Dose: Not Given Potassium Chloride (Klor-Con M20) 40 meq PO ONETIME ONE Stop: 08/23/16 14:31 Last Admin: 08/23/16 14:59 Dose: 40 meq Prednisone (Prednisone) 5 mg PO DAILY [facility] Last Admin: 08/26/16 10:34 Dose: Not Given Simvastatin (Zocor) 20 mg PO BEDTIME [facility] Last Admin: 08/25/16 20:54 Dose: Not Given Sodium Chloride (Normal Saline) 10 ml FLUSH ONETIME ONE Stop: 08/24/16 15:01 Last Admin: 08/24/16 16:19 Dose: Not Given *Q Meaningful Use (DIS) - VTE *Q VTE Criteria *Q: VTE Pharmacological Contraindications *Q: High INR Value - Stroke *Q Stroke Criteria *Q: - AMI *Q AMI Criteria *Q:
[2016-08-26] MEDS ORDERED: Amylase/Lipase/Protease 12,000 Unit Cap.CR PO SCH (14:00)
[2016-08-26] MEDS ORDERED: Amitriptyline 25 MG Tab PO SCH (21:00)
[2016-08-26] MEDS ORDERED: Simvastatin 20 MG Tab PO SCH (21:00)
[2016-08-27] MEDS ORDERED: Potassium Chloride 20 MEQ Tab.ER PO SCH (08:00)
[2016-08-27] MEDS ORDERED: predniSONE 5 MG Tab PO SCH (08:00)
[2016-08-27] MEDS ORDERED: Apixaban 2.5 MG Tab PO SCH (09:00)
== END 2016-08-26 13:05 | disposition home or self-care (01) | DRG 436 ==
LOC: JP.ED 12:04 → JP.MS 15:33 → OBSVTOIN 08-25 05:30 → INTOOBSV 08-25 05:30 → OBSVTOIN 08-25 11:42 → UNDODISIN 08-26 13:05
PROVIDERS: ADMIT Hospitalist; ATTEND Hospitalist
PROC: 0W9G3ZX Drainage of Peritoneal Cavity, Percutaneous Approach, Diagnostic (ICD-10-PCS; principal; 2016-08-22)
DX: C25.9 Malignant neoplasm of pancreas, unspecified (principal); C79.9 Secondary malignant neoplasm of unspecified site; R18.0 Malignant ascites; E86.0 Dehydration; I10 Essential (primary) hypertension; Z66 Do not resuscitate; Z51.5 Encounter for palliative care; R29.6 Repeated falls; R19.7 Diarrhea, unspecified; R55 Syncope and collapse; Z92.21 Personal history of antineoplastic chemotherapy; M79.7 Fibromyalgia; M19.90 Unspecified osteoarthritis, unspecified site; M54.9 Dorsalgia, unspecified; M06.9 Rheumatoid arthritis, unspecified; G89.29 Other chronic pain; K21.9 Gastro-esophageal reflux disease without esophagitis; E78.00 Pure hypercholesterolemia, unspecified; H54.7 Unspecified visual loss; Z96.649 Presence of unspecified artificial hip joint; Z79.01 Long term (current) use of anticoagulants; Z79.52 Long term (current) use of systemic steroids; Z88.5 Allergy status to narcotic agent; Z88.2 Allergy status to sulfonamides; Z88.8 Allergy status to other drugs, medicaments and biological substances; R53.1 Weakness; R11.0 Nausea
CPT/HCPCS: 36415 ×3; 74177; 80053 ×3; 81001; 85025 ×3; 87040 ×2; 87086; 96361; 96374; 96376 ×2; 97162; 99285 ×2; A9270 ×29; G0378 ×2; J1642 ×3; J2405 ×3; J7030; J7040 ×4; Q9967; 96360; 99219; 99225; 99226; J1170; J7050